=== PATIENT | female | born 1985 | race Hispanic/Latino ===

== ENCOUNTER 2019-05-06 13:09 | Observation (INO) | payer SELFPAY ==
[~2019-05-06] VITALS: Ht 157.5 cm; Wt 65.8 kg
[~2019-05-06 13:09] MED LIST: AMITRIPTYLINE100 MG PO; ELMIRON100 MG PO; ETHINYL ESTRADIOL PO; LEVONORGESTREL PO; LEXAPRO10 MG PO; NORCO 10-325 T1 EACH PO; SEASONIQUE 0.11 EACH; TYLENOL WITH C1 EACH PO; URELLE TABLET1 EACH PO; VALIUM10 MG PO
[2019-05-06] MEDS ORDERED: ONDANSETRON HCL INJ 2MG/ML 2ML 2 MG/ML VIAL IV STA (13:12)
[2019-05-06] MEDS ORDERED: SODIUM CHLORIDE 0.9% 1000ML 1,000 ML IV STA (13:12)
--- OUTSIDE RECORDS SUMMARY | 2019-05-06 13:12 | XMS REPORT ---
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 Allergies, Adverse Reactions, Alerts Allergy Name Allergy Type Status Severity Reaction(s) Onset Date Inactive Date Treating Clinician Comments methylprednisolone acetate DA Active NM 2018-06-10 00:00:00 Sulfa (Sulfonamide Antibiotics) DA Active 2018-06-10 00:00:00 cephalexin DA Active 2018-06-10 00:00:00 sulfamethoxazole DA Active NM 2018-06-10 00:00:00 trimethoprim DA Active NM 2018-06-10 00:00:00 methylprednisolone acetate DA Active NM 2016-04-14 00:00:00 Sulfa (Sulfonamide Antibiotics) DA Active 2016-04-14 00:00:00 cephalexin DA Active 2016-04-14 00:00:00 sulfamethoxazole DA Active NM 2016-04-14 00:00:00 trimethoprim DA Active NM 2016-04-14 00:00:00 Medications This patient has no known medications. Encounters Start Date/Time End Date/Time Encounter Type Admission Type Attending Clinicians Care Facility Care Department Encounter ID 2018-07-15 00:00:00 2018-07-15 00:00:00 Outpatient [facility] [id number] 2018-06-10 11:41:21 2018-06-10 11:41:21 Emergency [facility] MED [id number] Results Test Description Test Time Test Comments Text Results Atomic Results Result Comments - US TRANSVAGINAL NON OB 2018-07-08 19:31:00 Name: JOHNATHAN JEFFERY [facility] : 1985 Age/S: 32 / F [address] [facility] Unit #: [id number] Loc: [place] Mcm[place] [address] Phys: Jose Gan MD Acct: [id number] Dis Date: Status: REG ER PHONE #: [phone] Exam Date: 07/08/20181928 FAX #: [phone] Reason: pelvic pain EXAMS: CPT CODE: [id number] [place] [id number] REASON FOR EXAM: pelvic pain EXAM ORDER DATE: 07/08/2018 5:48 PM Attending M.Iron.: Jose Gan MD PROCEDURE: - US PELVIS COMPLETE, - US TRANSVAGINAL NON OB FINDINGS: The transabdominal ultrasound shows the uterus measured 6.3 x 2.7 cm. The ovaries were not seen on the transabdominal exam. No evidence of free fluid or adnexal mass on the transabdominal exam. The transvaginal ultrasound shows the endometrial stripe measured 0.4 cm. The ovaries are not seen. No fluid seen in the cul-de-sac. No evidence of IUP. IMPRESSION: Nonvisualization of the ovaries. No evidence of adnexal mass or free fluid at 193 Reported and signed by: Abelino Aponte M.D. CC: Jose Gan MD Technologist: Lis Dexter RDMS Trnscb Date/Time: 07/08/2018 (1930) [email or web address] Orig Print D/T: S: 07/08/2018 (1933) Probe: [id number] PAGE 1 Signed Report - US PELVIS COMPLETE 2018-07-08 19:31:00 Name: JOHNATHAN JEFFERY [facility] : 1985 Age/S: 32 / F [address] [facility] Unit #: [id number] Loc: [place] [address] Phys: Jose Gan MD Acct: [id number] Dis Date: Status: REG ER PHONE #: [phone] Exam Date: 07/08/20181928 FAX #: [phone] Reason: pelvic pain EXAMS: CPT CODE: [id number] US PELVIS COMPLETE [id number] REASON FOR EXAM: pelvic pain EXAM ORDER DATE: 07/08/2018 5:48 PM Attending Magan: Jose Gan MD PROCEDURE: - US PELVIS COMPLETE, - US TRANSVAGINAL NON OB FINDINGS: The transabdominal ultrasound shows the uterus measured 6.3 x 2.7 cm. The ovaries were not seen on the transabdominal exam. No evidence of free fluid or adnexal mass on the transabdominal exam. The transvaginal ultrasound shows the endometrial stripe measured 0.4 cm. The ovaries are not seen. No fluid seen in the cul-de-sac. No evidence of IUP. IMPRESSION: Nonvisualization of the ovaries. No evidence of adnexal mass or free fluid at 193 Reported and signed by: Abelino Aponte M.D. CC: Jose Gan MD Technologist: Lis Dxeter RDWV Trnscb Date/Time: 07/08/2018 (1930) [email or web address] Orig Print D/T: S: 07/08/2018 (1933) Probe: PAGE 1 Signed Report COMPREHENSIVE METABOLIC PANEL 2018-07-08 18:26:00 SODIUM (test code=NA) 136 mmol/L 135-148 POTASSIUM (test code=K) 4.1 mmol/L 3.5-5.1 CHLORIDE (test code=CL) 102 mmol/L 101-109 CARBON DIOXIDE (test code=CO2) 21.7 mmol/L 21-32 ANION GAP (test code=GAP) 16 mmol/L 10-20 GLUCOSE (test code=GLU) 85 mg/dL 74-106 BLOOD UREA NITROGEN (test code=BUN) 19 mg/dL 3-21 CREATININE (test code=CREAT) 0.73 mg/dL 0.55-1.3 BUN/CREATININE RATIO (test code=BUN/CREA) 26.0 10-20 TOTAL PROTEIN (test code=PROT) 8.2 g/dL 6.5-8.4 ALBUMIN (test code=ALB) 4.1 g/dL 3.4-4.8 GLOBULIN (test code=GLOB) 4.1 G/DL 1-10 ALBUMIN/GLOBULIN RATIO (test code=A/G) 1.0 RATIO 0.75-1.50 CALCIUM (test code=CA) 9.2 mg/dL 8.4-10.2 BILIRUBIN TOTAL (test code=BILT) 0.40 mg/dL 0.0-1.0 SGOT/AST (test code=AST) 13 U/L 6-32 SGPT/ALT (test code=ALT) 30 U/L 12-78 Note: Change in REFERENCE RANGE due to new reagent method. ALKALINE PHOSPHATASE TOTAL (test code=ALKP) 78 U/L 38-126 URINALYSIS [id number] 18:19:00* Test Item Value Reference Range Comments UA COLOR (test code=COLU) GREEN YELLOW UA APPEARANCE (test code=APPU) HAZY CLEAR UA GLUCOSE DIPSTICK (test code=DGLUU) norm mg/dL NEGATIVE UA BILIRUBIN DIPSTICK (test code=BILU) NEGATIVE mg/dL NEGATIVE UA KETONE DIPSTICK (test code=KETU) 5 (Trace) mg/dL NEGATIVE UA SPECIFIC GRAVITY (test code=SGU) 1.010 1.001-1.035 UA BLOOD DIPSTICK (test code=SHARRON) 150 (3+) Andre/uL NEGATIVE UA PH DIPSTICK (test code=DIANA) 7.0 5.0-8.0 UA PROTEIN DIPSTICK (test code=PROU) 100 (2+) mg/dL Neg-15 UA UROBILINIOGEN DIPSTICK (test code=URO) 1 mg/dL 0.0-0.2 UA NITRITE DIPSTICK (test code=INES) POSITIVE NEGATIVE UA LEUKOCYTE ESTERASE DIPSTICK (test code=LEUU) 25 Clara/uL (Trace) uL NEGATIVE UA WBC (test code=WBCU) 3-5 per HPF 0-5 UA RBC (test code=RBCU) 11-20 per HPF 0-5 UA EPITHELIAL CELLS (test code=EPIU) Rare (0-1/hpf) per HPF Few UA BACTERIA (test code=BACU) TRACE per HPF NONE UA MUCUS (test code=MUCU) MODERATE per LPF NONE-FEW Urine Source? Clean CatchUR HCG [id number] 18:19:00* Test Item Value Reference Range Comments UR HCG QUAL (test code=HCGQLU) NEGATIVE This HCGQL test is NOT applicable for MALE patients.Check with nurse about probable order error.If Tumor Marker Test needed, nurse should order test "HCGTU"(Test #550.39696) Urine Source? Clean CatchCOMPREHENSIVE METABOLIC [id number] 18:19:00* Test Item Value Reference Range Comments SODIUM (test code=NA) 136 mmol/L 135-148 POTASSIUM (test code=K) 4.1 mmol/L 3.5-5.1 CHLORIDE (test code=CL) 102 mmol/L 101-109 CARBON DIOXIDE (test code=CO2) 21.7 mmol/L 21-32 ANION GAP (test code=GAP) 16 mmol/L 10-20 GLUCOSE (test code=GLU) 85 mg/dL 74-106 BLOOD UREA NITROGEN (test code=BUN) 19 mg/dL 3-21 CREATININE (test code=CREAT) 0.73 mg/dL 0.55-1.3 BUN/CREATININE RATIO (test code=BUN/CREA) 26.0 10-20 TOTAL PROTEIN (test code=PROT) gram/dL 6.4-8.2 ALBUMIN (test code=ALB) g/dL 3.4-5.0 GLOBULIN (test code=GLOB) g/dL 2.7-4.2 ALBUMIN/GLOBULIN RATIO (test code=A/G) 0.75-1.50 CALCIUM (test code=CA) 9.2 mg/dL 8.4-10.2 BILIRUBIN TOTAL (test code=BILT) mg/dL 0.2-1.2 SGOT/AST (test code=AST) IUnit/L 15-37 SGPT/ALT (test code=ALT) U/L 10-69 ALKALINE PHOSPHATASE TOTAL (test code=ALKP) IUnit/L 45-117 URINALYSIS [id number] 18:09:00* Test Item Value Reference Range Comments UA COLOR (test code=COLU) GREEN YELLOW UA APPEARANCE (test code=APPU) HAZY CLEAR UA GLUCOSE DIPSTICK (test code=DGLUU) norm mg/dL NEGATIVE UA BILIRUBIN DIPSTICK (test code=BILU) NEGATIVE mg/dL NEGATIVE UA KETONE DIPSTICK (test code=KETU) 5 (Trace) mg/dL NEGATIVE UA SPECIFIC GRAVITY (test code=SGU) 1.010 1.001-1.035 UA BLOOD DIPSTICK (test code=SHARRON) 150 (3+) Andre/uL NEGATIVE UA PH DIPSTICK (test code=DIANA) 7.0 5.0-8.0 UA PROTEIN DIPSTICK (test code=PROU) 100 (2+) mg/dL Neg-15 UA UROBILINIOGEN DIPSTICK (test code=URO) 1 mg/dL 0.0-0.2 UA NITRITE DIPSTICK (test code=INES) POSITIVE NEGATIVE UA LEUKOCYTE ESTERASE DIPSTICK (test code=LEUU) 25 Clara/uL (Trace) uL NEGATIVE UA WBC (test code=WBCU) per HPF 0-5 UA RBC (test code=RBCU) per HPF 0-5 UA EPITHELIAL CELLS (test code=EPIU) per HPF Few UA BACTERIA (test code=BACU) per HPF NONE Urine Source? Clean CatchUR HCG [id number] 18:09:00* Test Item Value Reference Range Comments UR HCG QUAL (test code=HCGQLU) Urine Source? Clean CatchURINALYSIS [id number] 18:09:00* Test Item Value Reference Range Comments UA COLOR (test code=COLU) GREEN YELLOW UA APPEARANCE (test code=APPU) HAZY CLEAR UA GLUCOSE DIPSTICK (test code=DGLUU) norm mg/dL NEGATIVE UA BILIRUBIN DIPSTICK (test code=BILU) NEGATIVE mg/dL NEGATIVE UA KETONE DIPSTICK (test code=KETU) 5 (Trace) mg/dL NEGATIVE UA SPECIFIC GRAVITY (test code=SGU) 1.010 1.001-1.035 UA BLOOD DIPSTICK (test code=SHARRON) 150 (3+) Andre/uL NEGATIVE UA PH DIPSTICK (test code=DIANA) 7.0 5.0-8.0 UA PROTEIN DIPSTICK (test code=PROU) 100 (2+) mg/dL Neg-15 UA UROBILINIOGEN DIPSTICK (test code=URO) 1 mg/dL 0.0-0.2 UA NITRITE DIPSTICK (test code=INES) POSITIVE NEGATIVE UA LEUKOCYTE ESTERASE DIPSTICK (test code=LEUU) 25 Clara/uL (Trace) uL NEGATIVE UA WBC (test code=WBCU) per HPF 0-5 UA RBC (test code=RBCU) per HPF 0-5 UA EPITHELIAL CELLS (test code=EPIU) per HPF Few UA BACTERIA (test code=BACU) per HPF NONE Urine Source? Clean CatchUR HCG [id number] 18:09:00* Test Item Value Reference Range Comments UR HCG QUAL (test code=HCGQLU) NEGATIVE This HCGQL test is NOT applicable for MALE patients.Check with nurse about probable order error.If Tumor Marker Test needed, nurse should order test "HCGTU"(Test #550.72422) Urine Source? Clean CatchCBC W/AUTO [id number] 18:08:00* Test Item Value Reference Range Comments WHITE BLOOD CELL (test code=WBC) 8.6 K/mm3 4.5-12.5 RED BLOOD CELL (test code=RBC) 4.41 mill/mm3 3.7-5.2 HEMOGLOBIN (test code=HGB) 13.7 gram/dL 11.5-15.5 HEMATOCRIT (test code=HCT) 41.5 % 36.0-46.0 MEAN CELL VOLUME (test code=MCV) 94.1 fL 80-98 MEAN CELL HGB (test code=MCH) 31.1 picogram 27.0-33.0 MEAN CELL HGB CONCETRATION (test code=MCHC) 33.0 gram/dL 33.0-36.0 RED CELL DISTRIBUTION WIDTH (test code=RDW) 13.6 % 11.6-16.2 RED CELL DISTRIBUTION WIDTH SD (test code=RDW-SD) 45.1 fL 39.1-52.0 PLATELET COUNT (test code=PLT) 399 K/mm3 150-450 MEAN PLATELET VOLUME (test code=MPV) 9.4 fL 6.7-11.0 NEUTROPHIL % (test code=NT%) 69.4 % 39.0-69.0 LYMPHOCYTE % (test code=LY%) 25.3 % 25.0-55.0 MONOCYTE % (test code=MO%) 4.7 % 0.0-10.0 EOSINOPHIL % (test code=EO%) 0.3 % 0.0-5.0 BASOPHIL % (test code=BA%) 0.3 % 0.0-1.0 NEUTROPHIL # (test code=NT#) 5.98 K/mm3 1.8-7.7 LYMPHOCYTE # (test code=LY#) 2.19 K/mm3 1.0-5.0 MONOCYTE # (test code=MO#) 0.41 K/mm3 0-0.8 EOSINOPHIL # (test code=EO#) 0.03 K/mm3 0.0-0.5 BASOPHIL # (test code=BA#) 0.03 K/mm3 0.0-0.2 MANUAL DIFF REQUIRED (test code=MDIFF) NO BASIC METABOLIC [id number] 06:57:00* Test Item Value Reference Range Comments SODIUM (test code=NA) 139 mmol/L 136-145 POTASSIUM (test code=K) 3.8 mmol/L 3.5-5.1 CHLORIDE (test code=CL) 107.0 mmol/L 98-107 CARBON DIOXIDE (test code=CO2) mmol/L 21-32 ANION GAP (test code=GAP) 10-20 GLUCOSE (test code=GLU) mg/dL 74-106 BLOOD UREA NITROGEN (test code=BUN) mg/dL 7-18 GLOMERULAR FILTRATION RATE (test code=GFR) mL/min >=60 CREATININE (test code=CREAT) mg/dL 0.55-1.02 BUN/CREATININE RATIO (test code=BUN/CREA) 10-20 CALCIUM (test code=CA) mg/dL 8.5-10.1 HEPATIC FUNCTION [id number] 06:57:00* Test Item Value Reference Range Comments TOTAL PROTEIN (test code=PROT) gram/dL 6.4-8.2 ALBUMIN (test code=ALB) g/dL 3.4-5.0 GLOBULIN (test code=GLOB) gram/dL 2.7-4.2 ALBUMIN/GLOBULIN RATIO (test code=A/G) 0.75-1.50 BILIRUBIN TOTAL (test code=BILT) mg/dL 0.0-1.0 BILIRUBIN DIRECT (test code=BILD) mg/dL 0.0-0.20 SGOT/AST (test code=AST) IUnit/L 15-37 SGPT/ALT (test code=ALT) IUnit/L 12-78 ALKALINE PHOSPHATASE TOTAL (test code=ALKP) IUnit/L 45-117 [id number] 06:57:00* Test Item Value Reference Range Comments LIPASE (test code=LIP) U/L 73.0-393.0 HCG SERUM [id number] 06:57:00* Test Item Value Reference Range Comments HCG SERUM QUAL (test code=HCGQL) NEGATIVE NEGATIVE This HCGQL test is NOT applicable for MALE patients.Check with nurse about probable order error.If Tumor Marker Test needed, nurse should order test "HCGTU"(Test #550.77879) BASIC METABOLIC [id number] 06:57:00* Test Item Value Reference Range Comments SODIUM (test code=NA) 139 mmol/L 136-145 POTASSIUM (test code=K) 3.8 mmol/L 3.5-5.1 CHLORIDE (test code=CL) 107.0 mmol/L 98-107 CARBON DIOXIDE (test code=CO2) 21.0 mmol/L 21-32 ANION GAP (test code=GAP) 14.8 10-20 GLUCOSE (test code=GLU) 81 mg/dL 74-106 BLOOD UREA NITROGEN (test code=BUN) 11 mg/dL 7-18 GLOMERULAR FILTRATION RATE (test code=GFR) > 60 mL/min >=60 Estimated GFR by using Modified MDRD formula.Chronic kidney disease is defined as either kidney damageor GFR <60 mL/min/1.73 m2 for >3 months. CREATININE (test code=CREAT) 0.80 mg/dL 0.55-1.02 Note change in reference range due to change in reagent. BUN/CREATININE RATIO (test code=BUN/CREA) 13.8 10-20 CALCIUM (test code=CA) 9.1 mg/dL 8.5-10.1 HEPATIC FUNCTION [id number] 06:57:00* Test Item Value Reference Range Comments TOTAL PROTEIN (test code=PROT) 7.9 gram/dL 6.4-8.2 ALBUMIN (test code=ALB) 4.1 g/dL 3.4-5.0 GLOBULIN (test code=GLOB) 3.8 gram/dL 2.7-4.2 ALBUMIN/GLOBULIN RATIO (test code=A/G) 1.1 0.75-1.50 BILIRUBIN TOTAL (test code=BILT) 0.40 mg/dL 0.0-1.0 BILIRUBIN DIRECT (test code=BILD) 0.12 mg/dL 0.0-0.20 SGOT/AST (test code=AST) 22 IUnit/L 15-37 SGPT/ALT (test code=ALT) 28 IUnit/L 12-78 ALKALINE PHOSPHATASE TOTAL (test code=ALKP) 75 IUnit/L 45-117 Note change in reference range due to change in reagent. [id number] 06:57:00* Test Item Value Reference Range Comments LIPASE (test code=LIP) 188 U/L 73.0-393.0 HCG SERUM [id number] 06:57:00* Test Item Value Reference Range Comments HCG SERUM QUAL (test code=HCGQL) NEGATIVE NEGATIVE This HCGQL test is NOT applicable for MALE patients.Check with nurse about probable order error.If Tumor Marker Test needed, nurse should order test "HCGTU"(Test #550.90625) CBC W/O [id number] 06:56:00* Test Item Value Reference Range Comments WHITE BLOOD CELL (test code=WBC) 8.5 K/mm3 4.5-12.5 RED BLOOD CELL (test code=RBC) 4.37 mill/mm3 3.7-5.2 HEMOGLOBIN (test code=HGB) 13.3 gram/dL 11.5-15.5 HEMATOCRIT (test code=HCT) 39.0 % 36.0-46.0 MEAN CELL VOLUME (test code=MCV) 89.2 fL 80-98 MEAN CELL HGB (test code=MCH) 30.4 picogram 27.0-33.0 MEAN CELL HGB CONCETRATION (test code=MCHC) 34.1 gram/dL 33.0-36.0 RED CELL DISTRIBUTION WIDTH (test code=RDW) 11.5 % 11.6-16.2 PLATELET COUNT (test code=PLT) 362 K/mm3 150-450 MEAN PLATELET VOLUME (test code=MPV) 10.3 fL 6.7-11.0 CBC W/O [id number] 06:47:00* Test Item Value Reference Range Comments WHITE BLOOD CELL (test code=WBC) K/mm3 4.5-12.5 RED BLOOD CELL (test code=RBC) mill/mm3 3.7-5.2 HEMOGLOBIN (test code=HGB) 13.3 gram/dL 11.5-15.5 HEMATOCRIT (test code=HCT) 39.0 % 36.0-46.0 MEAN CELL VOLUME (test code=MCV) fL 80-98 MEAN CELL HGB (test code=MCH) picogram 27.0-33.0 MEAN CELL HGB CONCETRATION (test code=MCHC) gram/dL 33.0-36.0 RED CELL DISTRIBUTION WIDTH (test code=RDW) % 11.6-16.2 PLATELET COUNT (test code=PLT) K/mm3 150-450 MEAN PLATELET VOLUME (test code=MPV) fL 6.7-11.0 BASIC METABOLIC [id number] 06:44:00* Test Item Value Reference Range Comments SODIUM (test code=NA) 139 mmol/L 136-145 POTASSIUM (test code=K) 3.8 mmol/L 3.5-5.1 CHLORIDE (test code=CL) 107.0 mmol/L 98-107 CARBON DIOXIDE (test code=CO2) mmol/L 21-32 ANION GAP (test code=GAP) 10-20 GLUCOSE (test code=GLU) mg/dL 74-106 BLOOD UREA NITROGEN (test code=BUN) mg/dL 7-18 GLOMERULAR FILTRATION RATE (test code=GFR) mL/min >=60 CREATININE (test code=CREAT) mg/dL 0.55-1.02 BUN/CREATININE RATIO (test code=BUN/CREA) 10-20 CALCIUM (test code=CA) mg/dL 8.5-10.1 HEPATIC FUNCTION [id number] 06:44:00* Test Item Value Reference Range Comments TOTAL PROTEIN (test code=PROT) gram/dL 6.4-8.2 ALBUMIN (test code=ALB) g/dL 3.4-5.0 GLOBULIN (test code=GLOB) gram/dL 2.7-4.2 ALBUMIN/GLOBULIN RATIO (test code=A/G) 0.75-1.50 BILIRUBIN TOTAL (test code=BILT) mg/dL 0.0-1.0 BILIRUBIN DIRECT (test code=BILD) mg/dL 0.0-0.20 SGOT/AST (test code=AST) IUnit/L 15-37 SGPT/ALT (test code=ALT) IUnit/L 12-78 ALKALINE PHOSPHATASE TOTAL (test code=ALKP) IUnit/L 45-117 [id number] 06:44:00* Test Item Value Reference Range Comments LIPASE (test code=LIP) U/L 73.0-393.0 HCG SERUM [id number] 06:44:00* Test Item Value Reference Range Comments HCG SERUM QUAL (test code=HCGQL) NEGATIVE U/S, RENAL, [id number] 10:41:00Reason for exam:->URINARY RETENTIONx 5 daysReason for exam:->todayReason for exam:->EMESIS5 days agoFINAL REPORT Renal ultrasound. Clinical History: URINARY RETENTIONEMESIS. Comparison Study: None. Findings: The right kidney measures 9.3 x 4.3 x 4.5 cm and left kidney measures 10.5 x 5.2 x 4.5 cm. There is no eviden ce of hydronephrosis, nephrolithiasis or renal mass on either side. The echogeni city is normal bilaterally. The cortical thickness on the right side is 0.8 cm a nd on the left side is 0.9 cm. Color flow is documented to both kidneys. The louis dder contains a Acosta catheter. Impression: Morphologically normal appearing kid neys bilaterally with no evidence of hydronephrosis. Signed: Mayo Sanchez eport Verified Date/Time: 06/05/2018 10:41:20 Reading Location: [facility] [id number] Or [facility] Consult Reading Room ALYSIS W/ REFLEX URINE [id number] 10:38:00* Test Item Value Reference Range Comments COLOR (BEAKER) (test htch=857) Colorless CLARITY (BEAKER) (test saju=557) Hazy SPECIFIC GRAVITY UA (BEAKER) (test uzsc=739) 1.002 1.001-1.035 PH UA (BEAKER) (test xsmz=761) 6.0 5.0-8.0 PROTEIN UA (BEAKER) (test jxae=198) Negative Negative GLUCOSE UA (BEAKER) (test jfcs=400) Negative Negative KETONES UA (BEAKER) (test rczh=167) 40 mg/dL Negative BILIRUBIN UA (BEAKER) (test dxay=185) Negative Negative BLOOD UA (BEAKER) (test ayhq=119) Moderate Negative NITRITE UA (BEAKER) (test efkn=019) Negative Negative LEUKOCYTE ESTERASE UA (BEAKER) (test kktz=750) Negative Negative UROBILINOGEN UA (BEAKER) (test jozv=628) 0.2 mg/dL 0.2-1.0 RBC UA (BEAKER) (test wgwt=390) 2 /HPF WBC UA (BEAKER) (test sxdl=423) 1 /HPF BACTERIA (BEAKER) (test mvrq=851) Rare SQUAMOUS EPITHELIAL (BEAKER) (test scmm=012) 1 /HPF SOURCE(BEAKER) (test yhoi=0028) HEPATIC FUNCTION [id number] 10:38:00* Test Item Value Reference Range Comments TOTAL PROTEIN (BEAKER) (test wgmw=036) 6.9 gm/dL 6.0-8.3 ALBUMIN (BEAKER) (test vwpe=9158) 4.0 g/dL 3.5-5.0 BILIRUBIN TOTAL (BEAKER) (test uxko=671) 0.5 mg/dL 0.2-1.2 BILIRUBIN DIRECT (BEAKER) (test ztvx=694) 0.3 mg/dL 0.1-0.5 ALKALINE PHOSPHATASE (BEAKER) (test ijgm=722) 63 U/L 40-150 AST (SGOT) (BEAKER) (test wiee=862) 37 U/L 5-34 ALT (SGPT) (BEAKER) (test zsot=885) 31 U/L 6-55 BASIC METABOLIC [id number] 10:38:00* Test Item Value Reference Range Comments SODIUM (BEAKER) (test nsxt=291) 135 meq/L 136-145 POTASSIUM (BEAKER) (test keke=327) 3.6 meq/L 3.5-5.1 CHLORIDE (BEAKER) (test bgvd=874) 105 meq/L 98-107 CO2 (BEAKER) (test rwfu=933) 16 meq/L 22-29 BLOOD UREA NITROGEN (BEAKER) (test mqaz=648) 6 mg/dL 7-21 CREATININE (BEAKER) (test qqwo=415) 0.68 mg/dL 0.57-1.25 GLUCOSE RANDOM (BEAKER) (test qtcu=878) 79 mg/dL 70-105 CALCIUM (BEAKER) (test praw=352) 9.3 mg/dL 8.4-10.2 EGFR (BEAKER) (test vogc=1109) 100 mL/min/1.73 sq m ESTIMATED GFR IS NOT ACCURATE CREATININE CLEARANCE IN PREDICTING GLOMERULAR FILTRATION RATE. ESTIMATED GFR IS NOT APPLICABLE FOR DIALYSIS PATIENTS. CBC W/PLT COUNT & AUTO [id number] 08:46:00* Test Item Value Reference Range Comments WHITE BLOOD CELL COUNT (BEAKER) (test zghb=469) 9.7 K/ L 3.5-10.5 RED BLOOD CELL COUNT (BEAKER) (test uoob=490) 4.19 M/ L 3.93-5.22 HEMOGLOBIN (BEAKER) (test sgpb=204) 12.6 GM/DL 11.2-15.7 HEMATOCRIT (BEAKER) (test mkur=174) 38.1 % 34.1-44.9 MEAN CORPUSCULAR VOLUME (BEAKER) (test gdum=248) 90.9 fL 79.4-94.8 MEAN CORPUSCULAR HEMOGLOBIN (BEAKER) (test neiz=092) 30.1 pg 25.6-32.2 MEAN CORPUSCULAR HEMOGLOBIN CONC (BEAKER) (test kann=274) 33.1 GM/DL 32.2-35.5 RED CELL DISTRIBUTION WIDTH (BEAKER) (test navu=460) 11.6 % 11.7-14.4 PLATELET COUNT (BEAKER) (test ejmj=826) 352 K/CU MM 150-450 MEAN PLATELET VOLUME (BEAKER) (test smst=764) 9.8 fL 9.4-12.3 NUCLEATED RED BLOOD CELLS (BEAKER) (test njom=672) 0 /100 WBC 0-0 NEUTROPHILS RELATIVE PERCENT (BEAKER) (test urli=880) 67 % LYMPHOCYTES RELATIVE PERCENT (BEAKER) (test pvmd=304) 27 % MONOCYTES RELATIVE PERCENT (BEAKER) (test tezc=327) 5 % EOSINOPHILS RELATIVE PERCENT (BEAKER) (test hgmm=526) 0 % BASOPHILS RELATIVE PERCENT (BEAKER) (test kxrs=121) 0 % NEUTROPHILS ABSOLUTE COUNT (BEAKER) (test ubiw=968) 6.50 K/ L 1.56-6.13 LYMPHOCYTES ABSOLUTE COUNT (BEAKER) (test idgl=304) 2.57 K/ L 1.18-3.74 MONOCYTES ABSOLUTE COUNT (BEAKER) (test cshw=157) 0.51 K/ L 0.24-0.36 EOSINOPHILS ABSOLUTE COUNT (BEAKER) (test cvfd=777) 0.04 K/ L 0.04-0.36 BASOPHILS ABSOLUTE COUNT (BEAKER) (test ioal=485) 0.04 K/ L 0.01-0.08 IMMATURE GRANULOCYTES-RELATIVE PERCENT (BEAKER) (test tzkc=4274) 0 % 0-1
[2019-05-06] MEDS ORDERED: FLUOXETINE HCL20 MG (13:23)
[2019-05-06] MEDS ORDERED: URIBEL CAPSULE1 EACH (13:23)
[2019-05-06] MEDS ORDERED: ULTRAM 50MG50 MG (13:23)
[2019-05-06] MEDS ORDERED: LYRICA100 MG PO (13:29)
[2019-05-06] MEDS ORDERED: HYDROCODON-ACE1 EAC9 (13:29)
--- NOTE | 2019-05-06 13:29 | NUR ---
medications left in clients possesion.
--- NOTE | 2019-05-06 13:54 | NUR ---
radiology collected and sent urine to lab.
--- NOTE | 2019-05-06 14:04 | Diagnostic Imaging Report ---
Chest, portable AP view History: Seizures Comparison: No comparisons available for review IMPRESSION: The cardiomediastinal silhouette and pulmonary vasculature are within normal limits. The lungs are clear without evidence of consolidation or effusion. There are no acute osseous abnormalities. Signed by: Miguel Mcgee MD on 05/06/2019 2:01 PM
[2019-05-06 14:08] LABS: CLARITY,URINE CLEAR (CLEAR); COLOR,URINE GREEN (YELLOW)
[2019-05-06 14:09] LABS: AMPHETAMINES SCREEN,URINE NEGATIVE (NEGATIVE); BENZODIAZEPINES SCREEN,URINE NEGATIVE (NEGATIVE); KETONES,URINE NEGATIVE (NEGATIVE); LEUKOCYTE ESTERASE ,URINE NEGATIVE (NEGATIVE); NITRITE,URINE NEGATIVE (NEGATIVE); PHENCYCLIDINE SCREEN,URINE NEGATIVE (NEGATIVE); PROTEIN,URINE DIPSTICK 1+ (NEGATIVE)
[2019-05-06 14:10] LABS: BILIRUBIN,URINE MODERATE (NEGATIVE); URINE UROBILINOGEN 0.2 mg/dL (0.2 - 1)
[2019-05-06 14:11] LABS: EPITHELIAL CELLS,URINE MODERATE /LPF
--- NOTE | 2019-05-06 14:11 | Diagnostic Imaging Report ---
History: Seizure Comparison studies: None Technique: Axial images were obtained from the skull base to the vertex. Coronal and sagittal reconstructions obtained from the axial data. Dose modulation, iterative reconstruction, and/or weight based adjustment of the mA/kV was utilized to reduce the radiation dose to as low as reasonably achievable. Findings: Scalp/skull: No abnormalities. No fractures, blastic or lytic lesions. Extra-axial spaces: No masses. No fluid collections. Brain sulci: Appropriate for age. Ventricles: Normal in size and configuration. No hydrocephalus. Parenchyma: No abnormal densities. No masses, hemorrhage, acute or chronic cortical vascular insults. Sellar/suprasellar region: No abnormalities Craniocervical junction: Patent foramen magnum. No Chiari one malformation. IMPRESSION: No abnormalities . Signed by: DR Arnulfo Barahona M.D. on 05/06/2019 2:07 PM
[2019-05-06 14:20] LABS: BASOPHILS % 0.4 % (0.0-1.0); EOSINOPHILS % 0.4 % (0.0-6.0); HEMATOCRIT 41.8 % (34.2-44.1); HEMOGLOBIN 13.7 g/dL (12.0-16.0); LYMPHOCYTES % 21.5 % (18.0-39.1); MEAN CORPUSCULAR HEMOGLOBIN 30.4 pg (28-32); MEAN CORPUSCULAR HGB CONC 32.8 g/dL (31-35); MEAN CORPUSCULAR VOLUME 92.9 fL (81-99); MONOCYTES # (AUTO) 0.4 (0.2-0.8); MONOCYTES % 4.6 % (4.4-11.3); NEUTROPHILS # (AUTO) 6.7 (2.1-6.9); NEUTROPHILS % 72.9 % (38.7-80.0); PLATELET COUNT 335 x10e3/uL (140-360)
[2019-05-06 15:08] LABS: PREGNANCY TEST, URINE NEGATIVE (NEGATIVE)
[2019-05-06 15:22] LABS: ALANINE AMINOTRANSFERASE 12 IU/L (0-55); ALBUMIN 3.9 g/dL (3.5-5.0); ALBUMIN/GLOBULIN RATIO 1.2 (0.8-2.0); ALKALINE PHOSPHATASE 57 IU/L (40-150); ANION GAP 13.8 mmol/L (8-16); BLOOD UREA NITROGEN 14 mg/dL (7-26); BUN/CREATININE RATIO 18 (6-25); CALCIUM 8.6 mg/dL (8.4-10.2); CARBON DIOXIDE 22 mmol/L (22-29); CHLORIDE 107 mmol/L (98-107); CREATINE KINASE 59 IU/L (29-168); CREATININE, SERUM 0.78 mg/dL (0.57-1.11); EST GLOMERULAR FILTRATION RATE > 60 ML/MIN (60-); GLUCOSE 92 mg/dL (74-118); POTASSIUM 3.8 mmol/L (3.5-5.1); SODIUM 139 mmol/L (136-145)
[2019-05-06 15:23] LABS: SALICYLATE < 5.0 mg/dL (0-30)
[2019-05-06] MEDS ORDERED: FAMOTIDINE 20 MG/2 ML VIAL IV SCH (16:00)
[2019-05-06] MEDS ORDERED: MORPHINE SULFATE 2 MG/ML SYR 1ML IV PRN (16:00)
[2019-05-06] MEDS ORDERED: PROMETHAZINE HCL (IM) 25 MG/ML VIAL IV PRN (16:00)
[2019-05-06] MEDS: PROMETHAZINE 12.5MG/ NACL 0.9% 50 ML IV PRN (16:56)
[2019-05-06] MEDS: SODIUM CHLORIDE 0.9% 1000ML 1,000 ML IV SCH (16:56)
[2019-05-06] MEDS ORDERED: ACETAMINOPHEN 325 MG TAB PO PRN (18:00)
[2019-05-06] MEDS ORDERED: HYDRALAZINE HCL 20 MG/ML VIAL IV PRN (18:00)
--- NOTE | 2019-05-06 18:50 | NUR ---
PATIENT RECEIVED FROM ER PER STRETCHER. ALERT AND VERBALLY RESPONSIVE. ASSISTED TO BED. TELEMETRY [address] IV FLUID INFUSING ORDERED. BED IN LOWER POSITION, CALL LIGHT AT REACH.
[2019-05-06 19:00] VITALS: BP 141/88
--- NOTE | 2019-05-06 19:04 | NUR ---
RECEIVED REPORT FROM DAY NURSE. PATIENT IS RESTING COMFORTABLY IN BED. BED IS IN LOWEST POSITION AND CALL LIGHT IS WITHIN REACH. WILL CONTINUE TO MONITOR PATIENT.
[2019-05-06 19:05] VITALS: BP 141/88
[2019-05-06] MEDS: MORPHINE SULFATE 2 MG/ML SYR 1ML IV PRN (21:42)
[2019-05-06] MEDS: ONDANSETRON HCL INJ 2MG/ML 2ML 2 MG/ML VIAL IV PRN (21:42)
[2019-05-07] VITALS: BP 126/71
[2019-05-07] MEDS: ONDANSETRON HCL INJ 2MG/ML 2ML 2 MG/ML VIAL IV PRN ×4 (00:55→20:07)
[2019-05-07] MEDS: MORPHINE SULFATE 2 MG/ML SYR 1ML IV PRN ×7 (00:55→23:25)
[2019-05-07 02:43] LABS: BASOPHILS % 0.4 % (0.0-1.0); EOSINOPHILS # (AUTO) 0.1 (0.0-0.4); EOSINOPHILS % 0.5 % (0.0-6.0); HEMATOCRIT 36.2 % (34.2-44.1); LYMPHOCYTES # (AUTO) 2.8 (1.0-3.2); LYMPHOCYTES % 29.1 % (18.0-39.1); MEAN CORPUSCULAR HEMOGLOBIN 30.6 pg (28-32); MEAN CORPUSCULAR HGB CONC 33.1 g/dL (31-35); MEAN CORPUSCULAR VOLUME 92.3 fL (81-99); MONOCYTES # (AUTO) 0.5 (0.2-0.8); MONOCYTES % 4.8 % (4.4-11.3); NEUTROPHILS # (AUTO) 6.3 (2.1-6.9); NEUTROPHILS % 64.9 % (38.7-80.0); PLATELET COUNT 335 x10e3/uL (140-360); RED BLOOD COUNT 3.92 x10e6/uL (3.6-5.1); RED CELL DISTRIBUTION WIDTH 12.9 % (11.7-14.4)
[2019-05-07 03:34] LABS: ALANINE AMINOTRANSFERASE 12 IU/L (0-55); ALBUMIN 3.4 g/dL (3.5-5.0); ALBUMIN/GLOBULIN RATIO 1.3 (0.8-2.0); ALKALINE PHOSPHATASE 49 IU/L (40-150); ANION GAP 10.9 mmol/L (8-16); BLOOD UREA NITROGEN 9 mg/dL (7-26); BUN/CREATININE RATIO 13 (6-25); CALCIUM 8.3 mg/dL (8.4-10.2); CARBON DIOXIDE 23 mmol/L (22-29); CHLORIDE 109 mmol/L (98-107); CHOL/HDL RATIO 3.6 (3.0-3.6); CHOLESTEROL 210 MD/DL (0-199); EST GLOMERULAR FILTRATION RATE > 60 ML/MIN (60-); GLUCOSE 90 mg/dL (74-118); HDL CHOLESTEROL 59 MG/DL (40-60); LDL CHOLESTEROL 132 MG/DL (60-130); POTASSIUM 3.9 mmol/L (3.5-5.1); SODIUM 139 mmol/L (136-145); TRIGLYCERIDES 96 MG/DL (0-149)
[2019-05-07 03:54] LABS: THYROID STIMULATING HORMONE 2.813 uIU/mL (0.350-4.940)
[2019-05-07 04:18] VITALS: BP 118/66
[2019-05-07] MEDS: SODIUM CHLORIDE 0.9% 1000ML 1,000 ML IV SCH (05:40)
[2019-05-07] MEDS ORDERED: AMITRIPTYLINE H25 MG PO (05:54)
--- NOTE | 2019-05-07 07:00 | NUR ---
The pt. was received in bed awake at bedside rounding. She reports pain at 7/10 and is aware that pain med is not due at this time.
--- NOTE | 2019-05-07 07:27 | NUR ---
report given to day nurse. patient is resting comfortably in bed. bed is in lowest position and call light is within reach.
[2019-05-07 07:34] VITALS: BP 118/73
[2019-05-07 08:00] LABS: CREATINE KINASE 90 IU/L (29-168)
[2019-05-07] MEDS: FLUOXETINE HCL 20 MG CAP PO SCH (08:35)
[2019-05-07] MEDS: ASPIRIN 325 MG TAB PO SCH (08:35)
[2019-05-07] MEDS: PREGABALIN 75 MG CAP PO SCH (08:35)
[2019-05-07] MEDS: FAMOTIDINE 20 MG TAB PO SCH ×2 (08:35→16:23)
[2019-05-07 08:50] VITALS: BP 118/73
[2019-05-07] MEDS ORDERED: PREGABALIN 300 MG PO SCH (09:00)
--- NOTE | 2019-05-07 11:07 | NUR ---
Pt currently has no health insurance, she was let go from her current job, provided self pay packet with [facility]
[2019-05-07] MEDS: PROMETHAZINE 12.5MG/ NACL 0.9% 50 ML IV PRN ×3 (12:38→23:25)
[2019-05-07 12:49] LABS: CREATINE KINASE 104 IU/L (29-168)
--- NOTE | 2019-05-07 13:39 | Diagnostic Imaging Report ---
History: Syncope, seizure Comparison studies: Head CT 05/06/2019 Technique: Sagittal and axial T2, axial T2 FLAIR, axial T1 FLAIR, axial T2*GRE, axial DWI through the whole brain and dedicated thin position coronal T2 and T2 FLAIR sequences through the hippocampi and temporal lobes. Intravenous contrast: None Findings: The coronal T2 and T2 FLAIR sequences are somewhat limited by artifacts related to patient motion. Scalp: Normal in signal. No masses. Bone marrow: Normal in signal intensity. Brain sulci: Appropriate for age. Ventricles: Normal in size. No hydrocephalus. Extra axial spaces: No mass, no fluid collection. Parenchyma: No masses, hemorrhage or acute ischemia. The hippocampi are grossly normal in size and signal intensity. The forniceal columns and mamillary bodies are are symmetric in size and signal intensity. No gross abnormalities of cortical development/cortical migration identified. Moreover, evaluation for these abnormalities are somewhat limited in the absence of a high resolution 3-D T1 sequence. Single punctate T2 FLAIR hyperintense focus in the left superior frontal white matter is nonspecific and may reflect small gliosis along a prominent perivascular space and is of doubtful clinical significance. Suprasellar region: No abnormalities. Craniocervical junction: Patent foramen magnum. No Chiari malformation. Vessels: Normal flow-voids in the arteries and sinuses. IMPRESSION: 1. No acute intracranial abnormalities. 2. No mass or hemorrhage. No gross medial temporal sclerosis or or gross abnormalities of cortical development/cortical migration. Signed by: Dr. Fabien Thorne M.D. on 05/07/2019 1:37 PM
[2019-05-07 15:27] VITALS: BP 117/65
--- NOTE | 2019-05-07 18:37 | Consultation ---
DATE OF CONSULTATION: 05/07/2019 Neurology Consultation. REASON FOR CONSULTATION: Seeing her for seizure, for time event. HISTORY OF PRESENT ILLNESS: Mrs. Gauthier is a 33-year-old female with history of megacolon and inflammatory cystitis that she had from many decades. She takes amitriptyline, tramadol, pain medications, famotidine, ondansetron, aspirin, pregabalin, acetaminophen, atorvastatin at home on a daily basis. No history of seizures, febrile seizures, or family history of seizures. Yesterday, she was talking to her family around noon and then developed left-sided tonic-clonic movements and had epileptic event and was transferred to us for further care and evaluation. REVIEW OF SYSTEMS: She has many GI problems and bladder problems. Has myoclonia in her arms and legs very frequently and intermittent headaches. Otherwise, 10-point review of systems negative. SOCIAL HISTORY: No alcohol, tobacco, or drugs. PHYSICAL EXAMINATION: VITAL SIGNS: Temperature 98.3, blood pressure 126/71, heart rate is 76 and regular. HEENT: Extraocular muscles intact. Pupils are reactive. Face symmetric. Tongue is midline. Speech clear. No nuchal rigidity. CARDIOVASCULAR: Regular rate and rhythm. PULMONARY: Clear to auscultation. ABDOMEN: Tender. EXTREMITIES: Strength is 5/5 in uppers and lowers. Reflexes 2/4. There are no tremors or ataxia noted on exam. No myotonia. ASSESSMENT AND PLAN: The patient comes in for first-time seizure. She wants to be on seizure medications as she is concerned of another possible event as this was very concerning to her. My recommendation will be to be put on levetiracetam IV while she is in the hospital due to concerns about absorption, get an outpatient EEG, and then at time of discharge put her on levetiracetam 500 mg p.o. b.i.d. liquid version so that she is able absorb more easily. We will check a levetiracetam level as an outpatient and go from there. The patient should follow up with me in about three weeks. RACHAEL MCMAHON MD RR/MAME /[id number]
[2019-05-07] MEDS: LEVETIRACETAM IN NACL (ISO-OS) 100 ML IV SCH (19:00)
--- NOTE | 2019-05-07 19:18 | Consultation ---
DATE OF CONSULTATION: 05/07/2019 Urology consultation Consultation is called by Dr. Calderon. CHIEF COMPLAINT/REASON FOR CONSULTATION: Interstitial cystitis. HISTORY OF PRESENT ILLNESS: Ms. Gauthier is a very pleasant 33-year-old female, admitted to the hospital with a new onset seizure. Urologic consultation was requested for her prior history of interstitial cystitis and urgency. The patient has been noncompliant with urologic followup. She originally was diagnosed in [place], had seen Dr. Pollo Wild before and underwent cystoscopy and hydrodistention. She feels that symptoms are controlled if she takes one Elmiron daily. However, due to her prior lack of insurance, she has not followed up and has been on Elmiron for quite some time. Currently, she is experiencing urgency, nocturia, denied aniyah incontinence. PAST MEDICAL HISTORY: As above. MEDICATIONS: Please see MAR. ALLERGIES: TO BACTRIM, CEPHALEXIN, AND DEPO-MEDROL. SOCIAL HISTORY: Denied smoking or drinking. FAMILY HISTORY: Denied urologic stones or malignancies. REVIEW OF SYSTEMS: Noncontributory, other than problems mentioned above for 12-organ systems. PHYSICAL EXAMINATION: GENERAL: A young female, in no acute distress, currently she is afebrile. VITAL SIGNS: Stable vital signs. HEENT: Sclerae anicteric. NECK: Supple. BACK: Without costovertebral angle tenderness bilaterally. ABDOMEN: Soft. It is nontender. Nondistended. No palpable mass. No palpable hernias. No palpable adenopathy. : Normal female genitalia. EXTREMITIES: No edema. NEURO: Moves all extremities. PSYCH: Alert and mood appropriate. SKIN: Intact. Normal color. PERTINENT LABORATORY DATA: Urinalysis which was normal. Chem 7, BMP normal. IMPRESSION: 1. Interstitial cystitis without hematuria. 2. Hypocalcemia. 3. Nocturia. PLAN: Refer hypocalcemia to the primary service. The patient has nocturia and interstitial cystitis, we will start her back on Elmiron 100 mg b.i.d. We would recommend she have a chronic follow up as we follow interstitial cystitis patients. Thank you for allowing me to participate in the care of your patient. We will be happy to follow along with you. MD STEFANO Griffin/MAME Perdue: 05/07/2019 16:38:35 /[id number] cc: Javier Claderon MD
--- NOTE | 2019-05-07 19:20 | NUR ---
received report from day nurse. bedside rounds complete. patient is resting comfortably in bed. bed is in lowest position and call light is within reach. will continue to monitor patient.
[2019-05-07 20:00] VITALS: BP 127/67
[2019-05-07] MEDS ORDERED: ATORVASTATIN 20 MG TAB PO SCH (21:00)
[2019-05-08] VITALS: BP 111/56
[2019-05-08 04:00] VITALS: BP 109/79
[2019-05-08] MEDS: LEVETIRACETAM IN NACL (ISO-OS) 100 ML IV SCH ×2 (05:47→16:35)
--- NOTE | 2019-05-08 07:00 | NUR ---
bedside rounding complete. patient is resting comfortably in the bed. bed is in the lowest position and call light is within reach.
[2019-05-08 07:34] LABS: BLOOD UREA NITROGEN 10 mg/dL (7-26); BUN/CREATININE RATIO 14 (6-25); CALCIUM 8.6 mg/dL (8.4-10.2); CARBON DIOXIDE 23 mmol/L (22-29); CHLORIDE 111 mmol/L (98-107); CREATININE, SERUM 0.74 mg/dL (0.57-1.11); EST GLOMERULAR FILTRATION RATE > 60 ML/MIN (60-); GLUCOSE 93 mg/dL (74-118); MAGNESIUM 2.1 MG/DL (1.3-2.1); SODIUM 140 mmol/L (136-145)
[2019-05-08 07:43] VITALS: BP 104/62
[2019-05-08 07:50] VITALS: BP 104/62
[2019-05-08] MEDS: FAMOTIDINE 20 MG TAB PO SCH ×2 (08:17→16:42)
[2019-05-08] MEDS: FLUOXETINE HCL 20 MG CAP PO SCH (08:17)
[2019-05-08] MEDS: PREGABALIN 75 MG CAP PO SCH (08:17)
[2019-05-08] MEDS: ONDANSETRON HCL INJ 2MG/ML 2ML 2 MG/ML VIAL IV PRN ×3 (08:17→17:45)
[2019-05-08] MEDS: MORPHINE SULFATE 2 MG/ML SYR 1ML IV PRN ×3 (08:17→17:45)
[2019-05-08] MEDS: ASPIRIN 325 MG TAB PO SCH (08:17)
[2019-05-08 11:23] VITALS: BP 104/58
[2019-05-08] MEDS ORDERED: HYDROCODONE/APAP 10MG-325MG TAB PO PRN (14:45)
[2019-05-08 15:30] VITALS: BP 102/59
[2019-05-08] MEDS ORDERED: ASPIRIN325 MG PO (16:33)
[2019-05-08] MEDS ORDERED: KEPPRA500 MG/5 M PO (16:33)
[2019-05-08] MEDS ORDERED: ZOFRAN4 MG PO (16:35)
--- NOTE | 2019-05-08 18:24 | NUR ---
Left FA IV discontinued. No signs of infiltration noted. Placed 2x2 gauze and coban. Taken via wheelchair to personal car by PCT. Accompanied by mother. AAOX3 to time, person, place. Respirations even and unlabored. NO s/s of acute distress noted. Discharge instructions, rx, and all personal belongings taken with patient.
[2019-05-08] MEDS ORDERED: AMITRIPTYLINE HCL 25 MG TAB PO SCH (21:00)
--- NOTE | 2019-05-09 02:33 | Discharge Summary ---
PERTINENT HISTORY AND PHYSICAL FINDINGS: Ms. Gauthier is a 33-year-old female who admitted after a new onset seizure, which lasted about 5 minutes after eating breakfast on the morning of 05/06/2019. Per family she was shaking first and stiffened, did not have incontinence. No injuries. Her father caught her before hitting the ground. She had postictal confusion. PAST MEDICAL HISTORY: Anxiety, bladder spasms, endometriosis, left ovarian cyst/tumors, interstitial cystitis. PAST SURGICAL HISTORY: Ovarian cyst removal, laparotomy. FAMILY HISTORY: Diabetes mellitus in the grandmother and grandfather. Cancer in both grandfathers. CVA in a grandfather. SOCIAL HISTORY: Noncontributory. ALLERGIES: BACTRIM, CEPHALEXIN, DEPO-MEDROL. ADMITTING DIAGNOSES: 1. New onset seizure. 2. Anxiety. 3. Hyperlipidemia. 4. Interstitial cystitis. DISCHARGE DIAGNOSES: 1. New onset seizure. 2. Anxiety. 3. Hyperlipidemia. 4. Interstitial cystitis. CONSULTATIONS: Included: 1. Rosa Maria Hinojosa MD, Neurology. 2. Robb Chery MD, Urology. Patient also has history of megacolon per Dr. Hinojosa's note. She developed left-sided tonic-clonic movements and had epileptic event and transferred for further evaluation. The patient is concerned of having another possible event and wants to be on seizure medication. She will be on Keppra 500 mg p.o. b.i.d. at home. She will receive another IV dose of levetiracetam prior to discharge. The plan is to get an outpatient EEG, electroencephalogram, and the Keppra will be liquid for easier absorption. The patient will follow up with both Neurology and Urology in about a month after she starts her new job. She still experiencing some urgency, nocturia. She has been seeing her PCP, who is also a urologist for several decades, so she will follow up with him and Dr. Mendez Schofield within a month. Her left arm pain has improved. Her abdominal pain that she was having after seizure is also improved. Her cardiac biomarkers were negative x3 sets. Essentially, her other labs were normal except that her cholesterol was 210. Her LDL was 132. Urine culture and sensitivity were without growth after 36-48 hours. Bilateral carotid Doppler ultrasound was negative for stenosis. Echocardiogram showed ejection fraction of 65%. The EKG that she had on 05/06 showed a heart rate of 119 beats per minute, and she does suffer from anxiety for which she takes Prozac and amitriptyline. Amitriptyline is actually mainly for interstitial cystitis. During her stay, she had a chest x-ray which was negative. CT of the brain showed no abnormalities. Brain MRI showed no acute intracranial abnormalities. No mass or hemorrhage. DIET: The patient is to go home on a cardiac, given diet. ACTIVITY: Level as tolerated. FOLLOWUP: Follow up with PCP and Dr. Hinojosa within one month. Dictated by Rohan Alfredo, SAMPSON MD DWAYNE Thomason/MAME /[id number]
== END 2019-05-08 18:27 | disposition home or self-care (01) ==
LOC: ER 13:09 → ERHOLD 15:55 → MED/SURG3 18:47
PROVIDERS: ADMIT Internal Medicine; ATTEND Internal Medicine
DX: R56.9 Unspecified convulsions (principal); F41.9 Anxiety disorder, unspecified; N30.10 Interstitial cystitis (chronic) without hematuria; E78.5 Hyperlipidemia, unspecified
CPT/HCPCS: 36415 ×3; 70450; 70551; 71045; 80048; 80053 ×2; 80061; 80307; 80320; 80329 ×2; 81001; 81025; 82550 ×2; 82553 ×2; 83036; 83735; 84443; 84484 ×2; 84702; 85025 ×2; 87086; 93005; 93306; 93880; 99285; G0378 ×3; J2270 ×3; J2405 ×3; J2550 ×2; J7030 ×2

== ENCOUNTER 2019-12-06 14:42 | Observation (INO) | payer BC, OTHER ==
[~2019-12-06] VITALS: Ht 157.5 cm; Wt 66.8 kg
[~2019-12-06 14:42] MED LIST changes: +AMITRIPTYLINE H25 MG PO; +ASPIRIN325 MG PO; +FLUOXETINE HCL20 MG; +HYDROCODON-ACE1 EAC9; +KEPPRA500 MG/5 M PO; +LYRICA100 MG PO; +ULTRAM 50MG50 MG; +URIBEL CAPSULE1 EACH PO; +ZOFRAN4 MG PO
[2019-12-06 15:22] LABS: BASOPHILS % 0.4 % (0.0-1.0); EOSINOPHILS % 0.4 % (0.0-6.0); HEMATOCRIT 43.8 % (34.2-44.1); HEMOGLOBIN 14.4 g/dL (12.0-16.0); LYMPHOCYTES # (AUTO) 2.4 (1.0-3.2); LYMPHOCYTES % 35.3 % (18.0-39.1); MEAN CORPUSCULAR HEMOGLOBIN 29.3 pg (28-32); MEAN CORPUSCULAR HGB CONC 32.9 g/dL (31-35); MONOCYTES # (AUTO) 0.3 (0.2-0.8); MONOCYTES % 4.9 % (4.4-11.3); NEUTROPHILS # (AUTO) 3.9 (2.1-6.9); NEUTROPHILS % 58.7 % (38.7-80.0); PLATELET COUNT 356 x10e3/uL (140-360); RED BLOOD COUNT 4.92 x10e6/uL (3.6-5.1); RED CELL DISTRIBUTION WIDTH 11.9 % (11.7-14.4)
[2019-12-06 15:34] LABS: ALANINE AMINOTRANSFERASE 14 IU/L (0-55); ALBUMIN 4.4 g/dL (3.5-5.0); ALBUMIN/GLOBULIN RATIO 1.5 (0.8-2.0); ALKALINE PHOSPHATASE 62 IU/L (40-150); BLOOD UREA NITROGEN 12 mg/dL (7-26); BUN/CREATININE RATIO 15 (6-25); CARBON DIOXIDE 23 mmol/L (22-29); CHLORIDE 105 mmol/L (98-107); CREATINE KINASE 114 IU/L (29-168); CREATININE, SERUM 0.79 mg/dL (0.57-1.11); EST GLOMERULAR FILTRATION RATE > 60 ML/MIN (60-); GLUCOSE 119 mg/dL (74-118); SODIUM 139 mmol/L (136-145)
--- NOTE | 2019-12-06 16:02 | Emergency Department Note ---
History of Present Illnes History of Present Illness Chief Complaint: COVID PUI History of Present Illness This is a 34 year old female arrived to the ED with complaints of dizziness chest pain abdominal pain . Chief Complaint Comment PATIENT IN FROM HOME WITH COMPLAINTS OF DIZZINESS, CHEST PAIN AND ABDOMINAL BLOATING X 5 DAYS; STATES SAW HER PCP THURSDAY AND WAS SENT TO CARDIOLOGY BUT THE PAIN IS WORSE TODAY. PATIENT ALERT AND ORIENTED, RESP EVEN AND NONLABORED, APPEARS IN NO DISTRESS, RATES PAIN 08/23 Historian: Patient Arrival Mode: Car Past Medical/Family History Physician Review I have reviewed the patient's past medical and family history. Any updates have been documented here. Past Medical History Recent Fever: No Clinical Suspicion of Infectio: No New/Unexplained Change in Ment: No Other Medical History: ENDOMETRIOSIS LEFT OVARIAN CYST OSTEOPOROSIS INTERSTITIAL CYSTITIS BORDERLINE OVARIAN TUMORS Other Surgery: ENDOMETRIOSIS AND OVARIAN CYST REMOVAL LAPOROSCOPY MINI LAPORATOMY Social History Smoking Cessation: Never Smoker Counseling Performed: Yes Alcohol Use: Social Any Illegal Drug Use: No Physically hurt or threatened: No Other Last Tetanus: UTD Any Pre-Existing Lines (PICC,: No Physical Exam Related Data Allergies: Coded Allergies: cephalexin (Verified Allergy, Severe, 12/06/19) sulfamethoxazole (Verified Allergy, Severe, 12/06/19) trimethoprim (Verified Allergy, Severe, 12/06/19) methylprednisolone (Verified Allergy, Mild, HIVES, 12/06/19) Triage Vital Signs Vital Signs Date Time Temp Pulse Resp B/P (MAP) Pulse Ox O2 Delivery O2 Flow Rate FiO2 12/06/19 14:54 98.4 110 22 158/103 100 Room Air Physical Exam CONSTITUTIONAL HENT EYES NECK PULMONARY CARDIOVASCULAR GASTROINTESTINAL GENITOURINARY SKIN MUSCULOSKELETAL NEUROLOGICAL PSYCHOLOGICAL Results Laboratory Result Diagram: 12/06/19 1501 12/06/19 1501 Laboratory Laboratory Tests Test 12/06/19 15:01 White Blood Count 6.69 x10e3/uL (4.8-10.8) Red Blood Count 4.92 x10e6/uL (3.6-5.1) Hemoglobin 14.4 g/dL (12.0-16.0) Hematocrit 43.8 % (34.2-44.1) Mean Corpuscular Volume 89.0 fL (81-99) Mean Corpuscular Hemoglobin 29.3 pg (28-32) Mean Corpuscular Hemoglobin Concent 32.9 g/dL (31-35) Red Cell Distribution Width 11.9 % (11.7-14.4) Platelet Count 356 x10e3/uL (140-360) Neutrophils (%) (Auto) 58.7 % (38.7-80.0) Lymphocytes (%) (Auto) 35.3 % (18.0-39.1) Monocytes (%) (Auto) 4.9 % (4.4-11.3) Eosinophils (%) (Auto) 0.4 % (0.0-6.0) Basophils (%) (Auto) 0.4 % (0.0-1.0) Neutrophils # (Auto) 3.9 (2.1-6.9) Lymphocytes # (Auto) 2.4 (1.0-3.2) Monocytes # (Auto) 0.3 (0.2-0.8) Eosinophils # (Auto) 0.0 (0.0-0.4) Basophils # (Auto) 0.0 (0.0-0.1) Absolute Immature Granulocyte (auto 0.02 x10e3/uL (0-0.1) Sodium Level 139 mmol/L (136-145) Potassium Level 4.0 mmol/L (3.5-5.1) Chloride Level 105 mmol/L (98-107) Carbon Dioxide Level 23 mmol/L (22-29) Anion Gap 15.0 mmol/L (8-16) Blood Urea Nitrogen 12 mg/dL (7-26) Creatinine 0.79 mg/dL (0.57-1.11) Estimat Glomerular Filtration Rate > 60 ML/MIN (60-) BUN/Creatinine Ratio 15 (6-25) Glucose Level 119 mg/dL (74-118) Calcium Level 9.0 mg/dL (8.4-10.2) Total Bilirubin 0.2 mg/dL (0.2-1.2) Aspartate Amino Transf (AST/SGOT) 20 IU/L (5-34) Alanine Aminotransferase (ALT/SGPT) 14 IU/L (0-55) Alkaline Phosphatase 62 IU/L (40-150) Creatine Kinase 114 IU/L (29-168) Creatine Kinase MB 0.80 ng/mL (0-5.0) Troponin I 0.007 ng/mL (0-0.300) Total Protein 7.4 g/dL (6.5-8.1) Albumin 4.4 g/dL (3.5-5.0) Globulin 3.0 g/dL (2.3-3.5) Albumin/Globulin Ratio 1.5 (0.8-2.0) Lipase 20 U/L (8-78) Human Chorionic Gonadotropin, Qual Negative (NEGATIVE) Assessment & Plan Last Vital Signs Date Time Temp Pulse Resp B/P (MAP) Pulse Ox O2 Delivery O2 Flow Rate FiO2 12/06/19 14:54 98.4 110 22 158/103 100 Room Air Home Meds Active Scripts Ondansetron Hcl* (ZOFRAN*) 4 Mg Tablet, 4 MG PO Q6H PRN for NAUSEA for 14 Days, #30 TAB 0 Refills Prov:LIGIA RIVERA NP 05/08/19 Levetiracetam (KEPPRA) 500 Mg/5 Ml Vial, 500 MG PO BID for 14 Days Prov:LIGIA RIVERA NP 05/08/19 Aspirin (ASPIRIN) 325 Mg Tablet, 325 MG PO DAILY for 14 Days, #14 TAB 0 Refills Prov:LIGIA RIVERA NP 05/08/19 Reported Medications Amitriptyline Hcl (AMITRIPTYLINE HCL) 25 Mg Tablet, 100 MG PO HS, #30 TAB 05/07/19 Hydrocodone Bit/Acetaminophen (HYDROCODON-ACETAMINOPHN 10-325) 1 Each Tablet 05/06/19 Pregabalin (LYRICA) 100 Mg Capsule, 300 MG PO DAILY per Patient Dr. Thakkar is aware of client taking 300 mg of Lyrica from [place] 05/06/19 [facility]/Sod Phos/Phen/Hyos (URIBEL CAPSULE) 1 Each Capsule 05/06/19 Fluoxetine Hcl (FLUOXETINE HCL) 20 Mg Capsule 05/06/19 Tramadol Hcl* (ULTRAM 50MG*) 50 Mg Tab 05/06/19 E-Sxuouej-Okr Estr/Ethin Estra (SEASONIQUE 0.15-0.03-0.01 TAB) 1 Each Tbdspk.3mo 01/13/12 YURY TREVIÑO, Dec 06, 2019 16:02
[2019-12-06] MEDS ORDERED: IOPAMIDOL 370 MG/ML 200 ML INFUS..BTL INJ ONE (16:13)
[2019-12-06] MEDS ORDERED: SODIUM CHLORIDE 0.9% 50ML 50 ML ONE (16:13)
[2019-12-06] MEDS ORDERED: ONDANSETRON HCL INJ 2MG/ML 2ML 2 MG/ML VIAL IV STA (16:37)
--- NOTE | 2019-12-06 16:48 | Diagnostic Imaging Report ---
EXAM: CT Abdomen and Pelvis WITH contrast INDICATION: Abdominal pain COMPARISON: None. TECHNIQUE: Abdomen and pelvis were scanned utilizing a multidetector helical scanner from the lung base to the pubic symphysis after administration of IV contrast. Coronal and sagittal reformations were obtained. Routine protocol was performed. Scan was performed when during portal venous phase. IV CONTRAST: 100 mL of Isovue 370 ORAL CONTRAST: None COMPLICATIONS: None RADIATION DOSE: Total DLP: 302.68 mGy*cm Estimated effective dose: (DLP x 0.015 x size factor) mSv CTDIvol has been reviewed. It is below the limits set by the Radiation Protocol Committee (RPC). Dose modulation, iterative reconstruction, and/or weight based adjustment of the mA/kV was utilized to reduce the radiation dose to as low as reasonably achievable. FINDINGS: LINES and TUBES: None. LOWER THORAX: Unremarkable HEPATOBILIARY: The liver is diffuse hypodense compared to the spleen, consistent with diffuse hepatic diffuse hepatic steatosis. No focal hepatic lesions. No biliary ductal dilation. GALLBLADDER: No radio-opaque stones or sludge. No wall thickening. SPLEEN: No splenomegaly. PANCREAS: No focal masses or ductal dilatation. ADRENALS: No adrenal nodules KIDNEYS/URETERS: Kidneys enhance symmetrically. No hydronephrosis. No cystic or solid mass lesions. No stones. GI TRACT: No abnormal distention, wall thickening, or evidence of bowel obstruction. There is moderate stool burden throughout the colon. Appendix is normal. PELVIC ORGANS/BLADDER: Unremarkable. LYMPH NODES: No lymphadenopathy. VESSELS: Unremarkable. PERITONEUM / RETROPERITONEUM: No free air or fluid. BONES: Unremarkable. SOFT TISSUES: Unremarkable. IMPRESSION: 1. No acute abdominopelvic abnormality identified. 2. Hepatic steatosis. 3. Moderate stool burden throughout the colon can present clinically as constipation. Signed by: Jesus Wolf MD on 12/06/2019 4:44 PM
--- NOTE | 2019-12-06 16:51 | Diagnostic Imaging Report ---
EXAMINATION: CHEST SINGLE (PORTABLE) INDICATION: Chest pain. COMPARISON: Chest x-ray on 05/06/2019. FINDINGS: TUBES and LINES: None. LUNGS: Normal lung volumes. Lungs are clear. No consolidations. Bibasilar atelectasis. PLEURA: No pleural effusion or pneumothorax. HEART AND MEDIASTINUM: The cardiomediastinal silhouette is unremarkable. BONES AND SOFT TISSUES: No acute osseous lesion. Soft tissues are unremarkable. UPPER ABDOMEN: No free air under the diaphragm. IMPRESSION: No acute thoracic radiographic abnormality. Signed by: Jesus Wolf MD on 12/06/2019 4:47 PM
[2019-12-06] MEDS ORDERED: CITRATE OF MAGNESIA 300ML BOTTLE PO ONE (17:45)
[2019-12-06] MEDS: SODIUM CHLORIDE 0.9% 1000ML 1,000 ML IV SCH (18:11)
--- NOTE | 2019-12-06 18:53 | NUR ---
Nursing report given to Jadon MORTON.
--- NOTE | 2019-12-06 19:30 | NUR ---
Report given by ER nurse.
[2019-12-06] MEDS ORDERED: ONDANSETRON HCL INJ 2MG/ML 2ML 2 MG/ML VIAL IV PRN (19:45)
[2019-12-06] MEDS ORDERED: BISACODYL 5 MG TAB EC PO ONE (19:45)
[2019-12-06] MEDS ORDERED: TRAMADOL HCL 50 MG TAB PO PRN (19:45)
[2019-12-06] MEDS ORDERED: HYDRALAZINE HCL 20 MG/ML VIAL IV PRN (19:45)
[2019-12-06] MEDS ORDERED: ACETAMINOPHEN 325 MG TAB PO PRN (19:45)
[2019-12-06 20:00] LABS: COLOR,URINE GREEN (YELLOW)
[2019-12-06 20:01] LABS: BILIRUBIN,URINE SMALL (NEGATIVE); CLARITY,URINE SL CLOUDY (CLEAR); KETONES,URINE NEGATIVE (NEGATIVE); LEUKOCYTE ESTERASE ,URINE NEGATIVE (NEGATIVE); NITRITE,URINE NEGATIVE (NEGATIVE); PROTEIN,URINE DIPSTICK NEGATIVE (NEGATIVE); URINE UROBILINOGEN 0.2 mg/dL (0.2 - 1)
[2019-12-06 20:15] LABS: EPITHELIAL CELLS,URINE FEW /LPF; RBC,URINE 0-5 /HPF (0-5)
[2019-12-06] MEDS ORDERED: TRAMADOL HCL 50 MG TAB ONE (20:17)
[2019-12-06] MEDS ORDERED: FLAGYL250 MG PO (20:37)
[2019-12-06] MEDS ORDERED: BUPRENORP-NALO1 EACH (20:38)
[2019-12-06 20:49] VITALS: BP 160/89
--- NOTE | 2019-12-06 20:54 | NUR ---
Patient arrived to the floor via w/c.
[2019-12-06] MEDS: AMITRIPTYLINE HCL 25 MG TAB PO SCH (21:00)
[2019-12-06] MEDS: KETOROLAC TROMETHAMINE 30 MG/ML VIAL IV PRN (21:30)
[2019-12-06] MEDS ORDERED: LEVETIRACETAM 500 MG TAB PO SCH (22:00)
[2019-12-06 23:00] VITALS: BP 160/89
[2019-12-07] VITALS (9 sets, daily range): BP systolic 95–160; BP diastolic 58–93
[2019-12-07] MEDS ORDERED: HYDROCODONE/APAP 5MG-325MG TAB PO ONE
--- NOTE | 2019-12-07 | NUR ---
Patient c/o pain, crying and upset that correct meds not ordered. Patient received pain meds as ordered by MD.
--- NOTE | 2019-12-07 02:00 | NUR ---
Dr Garcia on the floor to see patient. Orders written and completed. Patient NPO for test.
[2019-12-07] MEDS ORDERED: METRONIDAZOLE 500MG/NS 100ML 100 ML IV STA (02:06)
[2019-12-07] MEDS ORDERED: PANTOPRAZOLE 40 MG 10ML VIAL IV STA (02:10)
[2019-12-07] MEDS: PANTOPRAZOL 40MG/SOD CHL 0.9% 50 ML IV SCH ×3 (02:15→20:45)
[2019-12-07] MEDS ORDERED: METRONIDAZOLE IV ONE (03:00)
[2019-12-07] MEDS ORDERED: [UNRECOGNIZED DRUG - OTHER] IV ONE (03:00)
[2019-12-07] MEDS: HYOSCYAMINE 0.125 MG TAB SL PRN ×4 (03:22→22:58)
[2019-12-07] MEDS: KETOROLAC TROMETHAMINE 30 MG/ML VIAL IV PRN ×2 (04:08→16:30)
[2019-12-07] MEDS: HYDROCODONE/APAP 5MG-325MG TAB PO PRN ×3 (04:09→22:50)
--- NOTE | 2019-12-07 05:16 | NUR ---
Patient c/o pain given meds as ordered by .
[2019-12-07 06:12] LABS: BASOPHILS % 0.3 % (0.0-1.0); EOSINOPHILS # (AUTO) 0.1 (0.0-0.4); EOSINOPHILS % 0.7 % (0.0-6.0); HEMATOCRIT 35.9 % (34.2-44.1); LYMPHOCYTES # (AUTO) 2.6 (1.0-3.2); LYMPHOCYTES % 38.8 % (18.0-39.1); MEAN CORPUSCULAR HEMOGLOBIN 30.2 pg (28-32); MEAN CORPUSCULAR HGB CONC 33.4 g/dL (31-35); MEAN CORPUSCULAR VOLUME 90.2 fL (81-99); MONOCYTES # (AUTO) 0.5 (0.2-0.8); MONOCYTES % 7.4 % (4.4-11.3); NEUTROPHILS # (AUTO) 3.5 (2.1-6.9); NEUTROPHILS % 52.7 % (38.7-80.0); PLATELET COUNT 304 x10e3/uL (140-360); RED BLOOD COUNT 3.98 x10e6/uL (3.6-5.1); RED CELL DISTRIBUTION WIDTH 11.7 % (11.7-14.4)
[2019-12-07 06:41] LABS: ALANINE AMINOTRANSFERASE 12 IU/L (0-55); ALBUMIN 3.6 g/dL (3.5-5.0); ALBUMIN/GLOBULIN RATIO 1.5 (0.8-2.0); ALKALINE PHOSPHATASE 48 IU/L (40-150); ANION GAP 11.1 mmol/L (8-16); BLOOD UREA NITROGEN 12 mg/dL (7-26); BUN/CREATININE RATIO 18 (6-25); CARBON DIOXIDE 22 mmol/L (22-29); CHLORIDE 110 mmol/L (98-107); CREATININE, SERUM 0.68 mg/dL (0.57-1.11); EST GLOMERULAR FILTRATION RATE > 60 ML/MIN (60-); GLUCOSE 77 mg/dL (74-118); POTASSIUM 4.1 mmol/L (3.5-5.1); SODIUM 139 mmol/L (136-145)
--- NOTE | 2019-12-07 06:42 | NUR ---
RECEIVED BEDSIDE SHIFT REPORT FROM OFF GOING NURSE. PATIENT IS RESTING IN BED. NO ACUTE DISTRESS NOTED AT THIS TIME. CALL LIGHT WITHIN REACH. BED IN THE LOWEST POSITION.
[2019-12-07] MEDS: FAMOTIDINE 20 MG TAB PO SCH ×2 (07:30→16:32)
[2019-12-07] MEDS: LUBIPROSTONE 24 MCG CAP PO SCH ×2 (08:00→16:32)
[2019-12-07] MEDS: METRONIDAZOLE 500MG/NS 100ML 100 ML IV SCH ×3 (08:00→20:48)
[2019-12-07] MEDS: PREGABALIN 50 MG CAP PO SCH ×3 (08:01→20:54)
--- NOTE | 2019-12-07 08:35 | NUR ---
PAGED DR. BANKS TO INFORM OF PATIENT'S ALLERGY TO STEROIDS AND MEDICATION ORDERED BY HIM.
[2019-12-07] MEDS ORDERED: LUBIPROSTONE 24 MCG CAP PO SCH (09:00)
[2019-12-07] MEDS ORDERED: FLUOXETINE HCL 20 MG CAP PO SCH (09:00)
[2019-12-07] MEDS ORDERED: LEVETIRACETAM 500 MG TAB PO SCH (09:00)
[2019-12-07] MEDS ORDERED: ASPIRIN 325 MG TAB PO SCH (09:00)
[2019-12-07] MEDS ORDERED: METRONIDAZOLE 500 MG TAB PO SCH (09:00)
[2019-12-07] MEDS ORDERED: HYDROCORTISONE ACETATE 25 MG/SUPP.RECT SUPP RC SCH (09:00)
--- NOTE | 2019-12-07 10:57 | Diagnostic Imaging Report ---
EXAM: Right upper quadrant abdominal ultrasound INDICATION: Right upper quadrant pain COMPARISON: CT abdomen and pelvis of 12/06/2019 TECHNIQUE: Transverse and longitudinal images of the right upper quadrant abdomen were obtained FINDINGS: Liver: Size: 14.8 cm in the right midclavicular line, normal Appearance: Mildly increased echogenicity, smooth contour Mass: No focal masses Gallbladder: No gallbladder distension, pericholecystic fluid, wall thickening, stone, or reported sonographic Salamanca's sign. Gallbladder wall measures 1 mm. Bile Ducts: Intrahepatic Ducts: No dilatation Extrahepatic Ducts: Common bile duct measures 3 mm Pancreas: Visualized portions of the pancreatic head, neck and proximal body are normal. Kidney: The right kidney measures 9.1 cm without evidence of hydronephrosis or stone. Vessels: Aorta: Visualized portions are normal Inferior Vena Cava: Visualized portions are normal Main Portal Vein: 0.8 cm, normal size with hepatopetal flow. Free Fluid: No ascites or pleural effusion IMPRESSION: No sonographic evidence of cholelithiasis or cholecystitis. Mild hepatic steatosis. Signed by: Rupert Infante MD on 12/07/2019 10:53 AM
[2019-12-07] MEDS: SODIUM CHLORIDE 0.9% 1000ML 1,000 ML IV SCH (11:45)
--- NOTE | 2019-12-07 11:50 | NUR ---
PATIENT OFF UNIT FOR HIDA SCAN.
[2019-12-07] MEDS ORDERED: PANTOPRAZOLE SO40 MG PO (12:54)
[2019-12-07] MEDS ORDERED: LEVSIN-SL0.125 MG SL (12:54)
[2019-12-07] MEDS ORDERED: AMITIZA24 MCG PO (12:54)
[2019-12-07] MEDS ORDERED: MECLIZINE HCL12.5 MG PO (12:54)
[2019-12-07] MEDS ORDERED: MECLIZINE HCL 12.5 MG TAB PO PRN (13:00)
[2019-12-07 13:23] LABS: CHOL/HDL RATIO 3.3 (3.0-3.6)
--- NOTE | 2019-12-07 14:24 | NUR ---
PATIENT BACK TO UNIT AT THIS TIME.
[2019-12-07] MEDS: ONDANSETRON HCL INJ 2MG/ML 2ML 2 MG/ML VIAL IV PRN ×2 (15:15→20:50)
--- NOTE | 2019-12-07 15:35 | NUR ---
PATIENT OFF UNIT FOR CT SCAN AT THIS TIME.
--- NOTE | 2019-12-07 15:56 | Diagnostic Imaging Report ---
Exam: Head CT without contrast History: Dizziness Comparison studies: Brain MRI 05/07/2019, head CT 05/06/2019 Technique: Axial images were obtained from the skull base to the vertex. Coronal and sagittal images reconstructed from the axial data. Dose modulation, iterative reconstruction, and/or weight based adjustment of the mA/kV was utilized to reduce the radiation dose to as low as reasonably achievable. Radiation dose: Total DLP: 921.4 mGy*cm. Estimated effective dose: DLP x 0.015 Intravenous contrast: None Findings: Scalp: No abnormalities. Bones: No fracture or destructive lytic or blastic lesion. Incidental small benign osteoma along the posterior outer table of the left parietal calvarium near the posterior vertex. Brain sulci: Appropriate for age. Ventricles: Normal in size and configuration. No hydrocephalus. Extra-axial spaces: No masses, no fluid collection. Parenchyma: No abnormal densities. No masses, acute hemorrhage, acute or chronic vascular insults. Sellar/suprasellar region: No abnormalities. Craniocervical junction: Patent foramen magnum. No Chiari one malformation. Middle ear cavities and mastoids: Clear. Included paranasal sinuses: Clear. Incidental small left frontal ethmoidal osteoma which does not result in frontal ethmoidal recess obstruction. IMPRESSION: 1. No acute intracranial abnormalities. 2. No changes from the prior head CT of 05/06/2019. Signed by: Dr. Fabien Thorne M.D. on 12/07/2019 3:52 PM
[2019-12-07] MEDS ORDERED: PHEN PO SCH (17:00)
[2019-12-07] MEDS ORDERED: SOD PHOS PO SCH (17:00)
[2019-12-07] MEDS ORDERED: BLUE PO SCH (17:00)
[2019-12-07] MEDS ORDERED: MTH PO SCH (17:00)
[2019-12-07] MEDS ORDERED: HYOS PO SCH (17:00)
--- NOTE | 2019-12-07 19:05 | NUR ---
Patient visited in room during nursing rounds. Patient alert and oriented x3. Ambulatory in room prn. Pt on IVF (NS at 50ml/hr) and Protonix drip at 10ml/hr. Patient has frequent upper abd (epigastric) pain and nausea and will be medicated accordingly. Patient stated she plans mother or father to bring her some of her home meds she wants to take tonight. Call pedraza within reach. Will monitor pt closely.
--- NOTE | 2019-12-07 19:29 | NUR ---
BEDSIDE SHIFT REPORT GIVEN TO ONCOMING NURSE. PATIENT IS IN STABLE CONDITION. IV LINE TO RIGHT FOREARM IS PATENT, IV FLUIDS AND PROTONIX DRIP INFUSING. PATIENT DENIES PAIN OR DISCOMFORT AT THIS TIME. CALL LIGHT WITHIN REACH. BED IN THE LOWEST POSITION. Addendum: 12/07/19 at 1944 by LUDIVINA MENEZES RN CORRECTION. PATIENT KEEPS COMPLAINING OF PAIN, SOME TO BE CHRONIC DUE TO ENDOMETRIOSIS.
--- NOTE | 2019-12-07 20:18 | Diagnostic Imaging Report ---
Hepatobiliary Scan with Gallbladder Ejection Fraction Reason for exam: Abdominal pain Report: Following intravenous administration of 5.8 millicuries of Tc-99m mebrofenin, dynamic images of the abdomen in the anterior projection were obtained through 60 minutes. Sincalide (CCK analog) 1.4 micrograms was administered intravenously over 30 minutes with additional imaging for determination of gallbladder ejection fraction. Perfusion to the liver is normal. Extraction of tracer from the blood pool by the liver parenchyma is normal. Tracer is seen promptly within the biliary tract. The gallbladder begins to fill by 20 minutes post-injection of tracer and fills adequately. Tracer is seen in the small bowel by 57 minutes. The gallbladder ejection fraction with administration of sincalide is 93% (normal greater than 40%). Impression: 1. Filling of the gallbladder excludes the diagnosis of acute cystic duct obstruction/acute cholecystitis. 2. Normal gallbladder ejection fraction of 93% does not support the clinical diagnosis of chronic cholecystitis/gallbladder dyskinesia. Signed by: Dr. Marta Sofia M.D. on 12/07/2019 8:14 PM
[2019-12-07] MEDS: PHE/SHARK LIVER OIL/COCOA BUT 24 EA SUPP RC SCH (20:54)
[2019-12-07] MEDS: AMITRIPTYLINE HCL 25 MG TAB PO SCH (20:54)
--- NOTE | 2019-12-07 22:15 | NUR ---
Called and spoke to Rohan Alfredo (ROTARY CUTTER OPERATOR for Dr. Calderon) and informed pt wanting to take her home meds (Uribel and Estrogen). Rohan consented ok for pt to take those aforementioned meds but not the Suboxone home med. Nurse (Messi) informed Rohan on the result of the HIDA Scan. Rohan aware and will let Dr. Butch Garcia decide on next plan for patient.
[2019-12-07] MEDS ORDERED: HOME MEDICATION--PATIENTS OWN PO PRN (22:30)
--- NOTE | 2019-12-07 22:30 | NUR ---
Patient seen in room by Dr. Butch Garcia and MD aware of patient's current condition and HIDA Scan result. MD informed and explained to patient the plan for EGD procedure tomorrow (12/08/19). Patient aware and agreed to have the EGD tomorrow.
[2019-12-07] MEDS ORDERED: DAYSEE PO SCH (23:02)
[2019-12-07] MEDS ORDERED: URIBEL PO ONE (23:15)
--- NOTE | 2019-12-07 23:27 | NUR ---
Patient signed consent form for EGD scheduled tomorrow. Pt aware she is NPO at midnight.
[2019-12-08] VITALS: BP 111/63
[2019-12-08] MEDS: METRONIDAZOLE 500MG/NS 100ML 100 ML IV SCH ×3 (01:50→13:43)
[2019-12-08] MEDS: PANTOPRAZOL 40MG/SOD CHL 0.9% 50 ML IV SCH ×3 (03:15→16:00)
[2019-12-08 04:05] VITALS: BP 104/66
[2019-12-08] MEDS: ONDANSETRON HCL INJ 2MG/ML 2ML 2 MG/ML VIAL IV PRN ×2 (06:05→11:25)
[2019-12-08] MEDS: KETOROLAC TROMETHAMINE 30 MG/ML VIAL IV PRN ×2 (06:05→16:45)
[2019-12-08 06:17] LABS: BASOPHILS % 0.5 % (0.0-1.0); EOSINOPHILS # (AUTO) 0.1 (0.0-0.4); EOSINOPHILS % 1.2 % (0.0-6.0); HEMATOCRIT 36.7 % (34.2-44.1); HEMOGLOBIN 11.9 g/dL (12.0-16.0); LYMPHOCYTES # (AUTO) 2.3 (1.0-3.2); LYMPHOCYTES % 28.9 % (18.0-39.1); MEAN CORPUSCULAR HGB CONC 32.4 g/dL (31-35); MEAN CORPUSCULAR VOLUME 89.5 fL (81-99); MONOCYTES # (AUTO) 0.6 (0.2-0.8); MONOCYTES % 6.8 % (4.4-11.3); NEUTROPHILS % 62.4 % (38.7-80.0); PLATELET COUNT 298 x10e3/uL (140-360); RED CELL DISTRIBUTION WIDTH 11.7 % (11.7-14.4)
--- NOTE | 2019-12-08 06:40 | NUR ---
RECEIVED BEDSIDE SHIFT REPORT FROM OFF GOING NURSE. PATIENT IS RESTING IN BED, NO ACUTE DISTRESS NOTED AT THIS TIME. CALL LIGHT WITHIN REACH. BED IN THE LOWEST POSITION.
[2019-12-08 06:42] LABS: ALANINE AMINOTRANSFERASE 12 IU/L (0-55); ALBUMIN 3.6 g/dL (3.5-5.0); ALBUMIN/GLOBULIN RATIO 1.6 (0.8-2.0); ALKALINE PHOSPHATASE 55 IU/L (40-150); ANION GAP 13.9 mmol/L (8-16); BLOOD UREA NITROGEN 10 mg/dL (7-26); BUN/CREATININE RATIO 15 (6-25); CALCIUM 7.8 mg/dL (8.4-10.2); CARBON DIOXIDE 19 mmol/L (22-29); CHLORIDE 111 mmol/L (98-107); CREATININE, SERUM 0.66 mg/dL (0.57-1.11); EST GLOMERULAR FILTRATION RATE > 60 ML/MIN (60-); GLUCOSE 68 mg/dL (74-118); POTASSIUM 3.9 mmol/L (3.5-5.1); SODIUM 140 mmol/L (136-145)
[2019-12-08] MEDS: FAMOTIDINE 20 MG TAB PO SCH ×2 (07:30→16:19)
[2019-12-08] MEDS: PREGABALIN 50 MG CAP PO SCH ×3 (08:00→16:19)
[2019-12-08] MEDS: PHE/SHARK LIVER OIL/COCOA BUT 24 EA SUPP RC SCH (08:00)
[2019-12-08] MEDS: LUBIPROSTONE 24 MCG CAP PO SCH ×2 (08:00→16:23)
[2019-12-08 09:11] VITALS: BP 113/67
[2019-12-08] MEDS: SODIUM CHLORIDE 0.9% 1000ML 1,000 ML IV SCH (09:30)
[2019-12-08 09:33] VITALS: BP 113/67
[2019-12-08] MEDS ORDERED: FENTANYL 25 MCG/HR PATCH TOP ONE (09:45)
[2019-12-08] MEDS ORDERED: PROPOFOL IV EMULSION 10 MG/ML 20 ML VIAL ONE (12:21)
[2019-12-08] MEDS ORDERED: LIDOCAINE HCL 2% LOCAL INJ 5 ML SDV VIAL INJ ONE (12:21)
[2019-12-08 13:10] VITALS: BP 105/57
[2019-12-08] MEDS ORDERED: KETAMINE HCL INJ 50 MG/ML 10 ML VIAL ONE (13:29)
[2019-12-08] MEDS ORDERED: FENTANYL CITRATE/PF 100MCG/2 ML INJ ONE (13:29)
[2019-12-08] MEDS ORDERED: MIDAZOLAM HCL 2 MG/2 ML VIAL ONE (13:29)
--- NOTE | 2019-12-08 14:03 | NUR ---
PATIENT OFF UNIT AT THIS TIME FOR EGD.
[2019-12-08] MEDS ORDERED: ONDANSETRON HCL INJ 2MG/ML 2ML 2 MG/ML VIAL ONE ×2 (15:40→15:41)
[2019-12-08] MEDS ORDERED: METOCLOPRAMIDE HCL 10 MG/2ML VIAL ONE (15:49)
--- NOTE | 2019-12-08 15:56 | NUR ---
PER DR. Stephen BANKS, PATIENT CAN BE DISCHARGED IF SHE TOLERATES PO INTAKE.
--- NOTE | 2019-12-08 16:00 | NUR ---
PATIENT BACK TO UNIT AT 1554, SHE IS IN STABLE CONDITION. PATIENT HELPED TO BATHROOM AT THIS TIME BY NURSE. PATIENT BACK TO BED. CALL LIGHT WITHIN REACH. BED IN THE LOWEST POSITION.
[2019-12-08] MEDS: HYOSCYAMINE 0.125 MG TAB SL PRN (16:24)
--- NOTE | 2019-12-08 16:27 | Operative Report ---
DATE OF PROCEDURE: 12/08/2019 SURGEON: Brown Garcia MD PROCEDURE: EGD with esophageal dilatation, pyloric channel dilatation and biopsies. ADDITIONAL REFERRING PHYSICIAN: Nico Givens MD. INDICATIONS FOR EGD: Dysphagia, upper abdominal pain. MEDICATIONS: The patient was done under MAC, please see anesthesiologist's note. PROCEDURE IN DETAIL: With the patient in the left lateral decubitus position, a flexible fiberoptic Olympus gastroscope was introduced into the esophagus under direct visualization without any difficulty. There was some patchy erythema noted in distal esophagus. The esophagus was then dilated to size 52-Spanish Nicole. The scope was then advanced with ease into the stomach. Mucosa overlying the antrum and the body revealed some patchy erythema and fiws-xi-jkldardp edema, and biopsies were obtained and sent to stain for H. pylori. The pyloric channel stricture that was dilated to size 20 mm per TTS balloon dilators. The scope was advanced all the way to the second portion of the duodenum. Biopsies were obtained from the proximal second portion and the duodenal bulb to rule out sprue. The scope was then withdrawn back into the stomach and retroflexed, mucosa overlying the fundus and the cardia appeared to be within normal limits. The scope was then straightened out, it was subsequently withdrawn, and the patient tolerated the procedure well. IMPRESSION: 1. Distal esophagitis, mild. 2. Esophagus dilated to size 52-Spanish Nicole. 3. Gastritis, biopsied, biopsies sent to stain for Helicobacter pylori. 4. Pyloric channel stricture dilated to size 20 mm per TTS balloon dilators. 5. Rule out sprue. PLAN: Follow up histology. Continue PPI therapy. Brown Garcia MD [facility] [place]/[facility] /[id number] cc: MD Nico Thomason MD
[2019-12-08 17:03] VITALS: BP 115/73
--- NOTE | 2019-12-08 17:45 | NUR ---
PATIENT TOLERATED DINNER, DENIES N/V OR ABDOMINAL PAIN AFTER EATING.
--- NOTE | 2019-12-08 18:30 | NUR ---
HOME MEDICATION COUNTED BY MAIN NURSE LUDIVINA MENEZES RN AND OTHER FLOOR NURSE GARY EMMANUEL RN. DAYSEE (9 TABLETS), URIBEL (71 CAPSULES), BUPRENORPHINE HCL-NALOXONE HCL (45 FILMS). ALL MEDICATIONS LISTED RETURNED TO PATIENT.
--- NOTE | 2019-12-08 18:45 | NUR ---
RECEIVED DC ORDER FROM SAMPSON PADILLA. PATIENT IS IN STABLE CONDITION. IV LINE TO RIGHT FOREARM DCD WITH TIP INTACT, PRESSURE APPLIED TO SITE, NO BLEEDING NOTED. DISCHARGE TEACHING PROVIDED TO PATIENT, SHE VERBALIZED UNDERSTANDING. TRANSITION OF CARE FOLDER WITH DC PAPERWORK AND PRESCRIPTIONS ON HAND. ALL PERSONAL ITEMS ON HAND. PATIENT ACCOMPANIED TO PRIVATE AUTO VIA WHEELCHAIR BY STAFF.
[2019-12-08] MEDS ORDERED: HOME MEDICATION--PATIENTS OWN PO SCH (21:00)
--- NOTE | 2019-12-09 03:04 | Discharge Summary ---
DISCHARGE DIAGNOSES: Chest pain, dizziness, abdominal pain, chronic pain due to endometriosis. DISCHARGE DIAGNOSES: Chest pain, dizziness, abdominal pain, chronic pain due to endometriosis plus rule out CVA, rule out ME plus distal esophagitis, gastritis, pyloric channel stricture, esophageal stricture plus rule out pancreatitis, rule out COVID, rule out cholelithiasis, rule out cholecystitis, rule out gallbladder dyskinesia. HISTORY: Anxiety, bladder spasms, endometriosis, left ovarian cyst/tumor, interstitial cystitis, seizures. SURGICAL HISTORY: Laparotomy and ovarian cyst removal. FAMILY HISTORY: The patient's grandmother and grandfather had diabetes. Both of the patient's grandfather had cancer and the patient's grandfather also had a stroke. SOCIAL HISTORY: Noncontributory. HOSPITAL COURSE: A 34-year-old female complains of dizziness, chest pain, and abdominal bloating for 5 days. On admission, ultrasound of the abdomen showed no evidence of cholelithiasis or cholecystitis, mild hepatic steatosis. Lipase was within normal limits. LFTs were within normal limits. HIDA scan showed normal gallbladder, EF of 93%. CT of the brain showed no acute abnormalities. UA was negative. Coronavirus negative. The patient was tolerating clear liquid diet, but taken to EGD by GI. In the EGD the patient was found to have esophagitis gastritis and strictures of the pyloric channel and esophagus. At time of discharge the patient is tolerating diet and feeling better. She will discharge home with a new pain patch for fentanyl per Pain Management, due to her endometriosis the patient claims to have severe pain constantly. She follows an outpatient TRANSMISSION AND COORDINATION ENGINEER and an outpatient structural iron erector who specializes in endometriosis and pain management doctor outpatient as well. She will follow up with primary care in 1 to 2 weeks and specialties as listed above. The patient understands instructions and agrees to plan. Vital signs stable, patient afebrile. Dictated by Adelaida Avila NP Javier Calderon MD [facility] /[id number]
--- OUTSIDE RECORDS SUMMARY | 2019-12-11 15:17 | XMS REPORT | Clinical Summary ---
Author Author [facility] Organization 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 Active L-Norgest&E Estradiol-E Take 1 tablet 0 Estrad (SEASONIQUE) 0.15 by mouth mg-30 mcg (84)/10 mcg (7) daily Skips 3MPk placebo dose . Active Mth-Me Blue-Sod Take 1 tablet 0 Rzwr-AuXuo-Qbt (URIBEL) by mouth 118-10-40.8-36 mg cap daily. Active pregabalin (LYRICA) 100 Take 100 mg 0 mg capsule by mouth 2 times daily. Active ergocalciferol (VITAMIN Take 50,000 0 D2) 50,000 unit capsule Units by mouth weekly. Active lidocaine 5 % Gel Apply to 0 affected area. Active Problems Problem Noted Date Chronic pelvic pain in female 09/14/2018 Endometriosis 09/14/2018 Urinary retention Family History Medical History Relation Name Comments Kidney cancer Maternal Grandfather Skin cancer Maternal Grandfather Cervical cancer Other Maternal aunt Colon cancer Paternal Grandfather Relation Name Status Comments Maternal Grandfather Other Paternal Grandfather Social History Date Tobacco Use Types Packs/Day Years Used Never Smoker Smokeless Tobacco: Never Used Tobacco Cessation: Counseling Given: No Drinks/Week oz/Week Comments Alcohol Use Never Alcohol Habits Answer Date Recorded How often do you have a drink containing alcohol? Never 09/14/2018 How many drinks containing alcohol do you have on No t asked a typical day when you are drinking? How often do you have six or more drinks on one Not asked occasion? Sex Assigned at Date Recorded Not on file Industry Job Start Date Occupation Not on file Not on file Not on file Travel End Travel History Travel Start No recent travel history available. Last Filed Vital Signs Not on file Plan of Treatment Health Maintenance Due Date Last Done Comments Cervical Cancer Scrn (3 2005 Yrs) IMM Influenza Seasonal 12/15/2019 Oct to May (>/= 19 yrs) Results Not on fileafter 12/05/2018
--- OUTSIDE RECORDS SUMMARY | 2019-12-11 15:17 | XMS REPORT | Clinical Summary ---
Author Author [facility] Address Unknown Phone Unavailable Care Team Providers Care Air Hose Coupler Name Role Phone PCP Unavailable Allergies Comments Active Allergy Reactions Severity Noted Date Sulfamethoxazole-Trimetho Swelling 06/05/2018 prim Cephalosporins Swelling 06/05/2018 Corticosteroids Hives, Rash Low 06/05/2018 (Glucocorticoids) Medications End Date Status Medication Sig Dispensed Refills Start Date Active amitriptyline (ELAVIL) Take 100 mg 0 100 MG tablet by mouth nightly. Active methen-m.blue-s.phos-phsa Take by 0 l-hyo (URIBEL) mouth. 118-10-40.8-36 mg Cap Active pregabalin (LYRICA) 300 Take 300 mg 0 MG capsule by mouth 2 (two) times daily. Active L-norgest/e.estradiol-e.e Take by 0 strad (CAMRESE LO ORAL) mouth. Active diazePAM (VALIUM) 10 MG Take 10 mg by 0 tablet mouth every 6 (six) hours as needed for Anxiety Vaginal suppository . Active HYDROcodone-acetaminophen Take 1 tablet 0 (NORCO 5-325) 5-325 mg by mouth per tablet every 6 (six) hours as needed for Pain. Active Problems Not on file Social History Date Tobacco Use Types Packs/Day Years Used Never Smoker Smokeless Tobacco: Never Used Alcohol Use Drinks/Week oz/Week Comments No Alcohol Habits Answer Date Recorded How often do you have a drink containing alcohol? Never 06/05/2018 How many drinks containing alcohol do you [...] Signs Not on file Plan of Treatment Not on file Results Not on fileafter 12/05/2018
--- OUTSIDE RECORDS SUMMARY | 2019-12-11 15:17 | XMS REPORT | Clinical Summary ---
Author Author [facility] Address Unknown Phone Unavailable Care Team Providers Care Eyeletter Name Role Phone Akua Villagomez MD PCP Allergies Comments Active Allergy Reactions Severity Noted Date Tongue swelling Cephalexin Swelling High 05/23/2015 Methylprednisolone Hives, Rash Low 05/23/2015 Tongue swelling Sulfamethoxazole-Trimetho Swelling High 11/2015 prim Medications End Date Status Medication Sig Dispensed Refills Start Date Active Methenamine + Hyoscyamine Take 1 tablet 0 + Methylene Blue + by mouth 4 Salicylate + NaPhos (four) times (URELLE) 81-10.8-40.8 mg a day. tablet Active amitriptyline (ELAVIL) Take 100 mg 0 100 MG tablet by mouth nightly. Active promethazine (PHENERGAN) TK 1 T PO Q 8 0 06/06 25 MG tablet H NV 9 Active HYDROcodone-acetaminophen Take 1 tablet 0 (NORCO) 10-325 mg per by mouth as tablet needed. Active L-norgest/e.estradiol-e.e Take 1 tablet 0 strad (SEASONIQUE ORAL) by mouth nightly. Active metoclopramide (REGLAN) Take 10 mg by 0 10 MG tablet mouth 4 (four) times a day. Active lidocaine (XYLOCAINE) 5 % Apply 1 0 ointment application topically as needed for mild pain. URETHRA Active Problems Problem Noted Date Chronic pain 06/16/2018 Syncope 06/16/2018 Chronic interstitial cystitis 12/03/2016 Uterine endometriosis 11/05/2016 Family History Medical History Relation Name Comments Asthma Father Gout Father Diabetes Maternal Grandfather Kidney cancer Maternal Grandfather Skin cancer Maternal Grandfather Stroke Maternal Grandfather Diabetes Maternal Grandmother Scoliosis Mother Relation Name Status Comments Father Maternal Grandfather Maternal Grandmother Mother Social History Date Tobacco Use Types Packs/Day Years Used Never Smoker Smokeless Tobacco: Never Used Drinks/Week oz/Week Comments Alcohol Use No Alcohol Habits Answer Date Recorded How often do you have a drink containing alcohol? Never 06/03/2018 How many drinks containing alcohol do you have on No t asked a typical day when you are drinking? How often do you have six or more drinks on one Not asked occasion? 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
--- OUTSIDE RECORDS SUMMARY | 2019-12-11 15:18 | XMS REPORT | Continuity of Care Document ---
Author Author [facility] t Organization [facility] Address [address] [place] [address] Phone Unavailable Care Team Providers Care Teacher Asst Name Role Phone SAMEERA FRAGA, MD Js SLAUGHTER PCP RALEIGH LAGUNAS Attphys Unavailable ENRIKE DOHERTY Attphys Unavailable RALEIGH LAGUNAS Admphys Unavailable Payers Payer Name Policy Type Policy Number Effective Date Expiration Date S [facility] [id number] 2011 00:00:00 [facility] Problems Condition Name Condition Details Condition Category Status Onset Date Resolution Date Last Treatment Date Treating Clinician Comments Source Chronic pelvic pain in female Chronic pelvic pain in female Disease Active 2018-09-14 00:00:00 [facility] Endometriosis Endometriosis Disease Active 2018-09-14 00:00:00 [facility] 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 Active 2018-08-04 00:00:00 MD Imer viera Chronic pelvic pain of female Chronic pelvic pain of female Disease Active 2018-08-04 00:00:00 MD Imer viera Chronic pain Chronic pain Disease Active 2018-06-16 00:00:00 [facility] Syncope Syncope Disease Active 2018-06-16 00:00:00 Ravi Terry Opioid dependence Opioid dependence Disease Active 2017-02-23 00:00:00 MD Sanford Chronic interstitial cystitis Chronic interstitial cystitis Disease Active 2016-12-03 00:00:00 Ravi Alevism Uterine endometriosis Uterine endometriosis Disease Active 201 09-20-22 00:00:00 Ravi Ayon t Thyroid function tests abnormal Thyroid function tests abnormal Dis ease Active 2015-06-20 00:00:00 MD Imer viera Pain in pelvis Pain in pelvis Disease Active 2014-09-06 00:00:00 MD [facility]ford Chronic interstitial cystitis Chronic interstitial cystitis Disease Active 2014-09-06 00:00:00 MD Imer viera Endometriosis (clinical) Endometriosis (clinical) Disease Acti ve 2014-07-19 00:00:00 MD Sanford Seizure Seizure Problem Active [facility] Abdominal pain Problem Active C [facility] Urinary retention Urinary retention Disease Active [facility] Allergies, Adverse Reactions, Alerts Allergy Name Allergy Type Status Severity Reaction(s) Onset Date Inacti ve Date Treating Clinician Comments Source Tramadol Propensity to adverse reactions Active Severe 2019-11 00:00:00 [facility] Methylprednisolone Allergy to substance Active Mild HIVES 00:00:00 [facility] Cephalexin Allergy to substance Active Severe 2019-12-06 00:00:00 [facility] Sulfamethoxazole Allergy to substance Active Severe 2019-12-06 00: 00:00 [facility] Trimethoprim Allergy to substance Active Severe 2019-12-06 00:00:0 0 [facility] methylprednisolone acetate DA Active MO 2018-06-10 00:00:0 0 [facility] Sulfa (Sulfonamide Antibiotics) DA Active SV 2018-06-10 00 :00:00 [facility] cephalexin DA Active SV 2018-06-10 00:00:00 [facility] sulfamethoxazole DA Active MO 2018-06-10 00:00:00 [facility] trimethoprim DA Active MO 2018-06-10 00:00:00 [facility] Sulfamethoxazole-Trimethoprim Propensity to adverse reactions to dr cinthia Active 2018-06-10 00:00:00 [facility] Cephalexin Propensity to adverse reactions to drug Active 2018-06-10 00:00:00 [facility] Corticosteroids (Glucocorticoids) Propensity to adverse reac tions to drug Active 2018-06-10 00:00:00 [facility] Sulfamethoxazole-Trimethoprim Propensity to adverse reactions Active Swelling 2018-06-05 00:00:00 [facility] Cephalosporins Propensity to adverse reactions Active Swelling 2018-06-05 00:00:00 [facility] Corticosteroids (Glucocorticoids) Propensity to adverse reactions A ctive Hives, Rash 2018-06-05 00:00:00 [facility] methylprednisolone acetate DA Active MO 2016-04-14 00:00:0 0 [facility] Sulfa (Sulfonamide Antibiotics) DA Active SV 2016-04-14 00 :00:00 [facility] cephalexin DA Active SV 2016-04-14 00:00:00 [facility] sulfamethoxazole DA Active MO 2016-04-14 00:00:00 [facility] trimethoprim DA Active MO 2016-04-14 00:00:00 [facility] Cephalexin Propensity to adverse reactions to drug Active Swelling 2015-05-23 00:00:00 Tongue swelling [facility] Methylprednisolone Propensity to adverse reactions to drug Active Hives, Rash 2015-05-23 00:00:00 [place] [facility] Sulfamethoxazole-Trimethoprim Propensity to adverse reactions to dr cinthia Active Swelling 2015-05-23 00:00:00 Tongue swelling [place] [facility] Family History Family Member Diagnosis Comments Start Date Stop Date Source Natural father Asthma [facility] Natural father Gout [facility] Maternal grandfather Diabetes [place] [facility] Maternal grandfather Kidney cancer [place] [facility] Maternal grandfather Skin cancer [place] [facility] Maternal grandfather Stroke [place] [facility] Maternal grandfather Kidney cancer [facility] Maternal grandfather Skin cancer [facility] Maternal grandmother Diabetes [place] [facility] Natural mother Scoliosis [facility] Maternal aunt Cervical cancer [place] Paternal grandfather Colon cancer MD [facility] Paternal grandfather Colon cancer [facility] Other Cervical cancer [facility] alth Social History Social Habit Start Date Stop Date Quantity Comments Source History SDOH Alcohol Std Drinks [facility] History SDOH Alcohol Binge [facility] Sex Assigned [facility] Alcohol intake 2018-10-12 00:00:00 2018-10-12 00:00:00 Lifetime non-drinker (finding) [facility] History SDOH Alcohol Frequency 2018-09-14 00:00:00 2018-09-14 00:00:0 0 1 [facility] Tobacco use and exposure 2018-08-05 00:00:00 2018-08-05 00:00:00 Kael [facility] Smoking Status Start Date Stop Date Source Never smoker [facility] Medications Ordered Medication Name Filled Medication Name Start Date Stop Da te Current Medication? Ordering Clinician Indication Dosage Frequency Signature (SIG) Comments Components Source Hyoscyamine Sulfate (Levsin-Sl) 0.125 Mg TAB.SUBL Hyos cyamine Sulfate (Levsin- Sl) 0.125 Mg TAB.SUBL 2019-12-07 12:54:00 Yes .125 Every 4 Hours as needed for Abdominal Pain [facility] Lubiprostone (Amitiza) 24 Mcg CAPSULE Lubiprostone (Amitiza) 24 Mcg CAPSULE 2019-12-07 12:54:00 Yes 24 Twice Daily With M eals [facility] Meclizine Hcl Meclizine Hcl 2019-12-07 12:54:00 Yes 12.5 Every 6 Hours as needed for Dizziness [facility] Pantoprazole Sodium (Protonix) 40 Mg TABLET. Pantopr azole Sodium (Protonix) 40 Mg TABLET. 2019-12-07 12:54:00 Yes 40 Before Graff kfast [facility] Ondansetron Hcl (Zofran*) 4 Mg TABLET Ondansetron Hcl (Zofra n*) 4 Mg TABLET 2019-05-08 15:35:00 Yes 4 Every 6 Hours as n eeded for Nausea [facility] Levetiracetam (Keppra) 500 Mg/5 Ml VIAL Levetiracetam (Keppr a) 500 Mg/5 Ml VIAL 2019-05-08 15:33:00 2019-12-06 00:00:00 No 500 Twice A Day [facility] L-Norgest&E Estradiol-E Estrad (SEASONIQUE) 0.15 mg-30 mcg (84)/10 mcg (7) 3MPk 2018-10-12 18:56:09 Yes 1{tbl} QD Take 1 tablet by mouth daily Skips placebo dose . [facility] amitriptyline (ELAVIL) 100 mg tablet 2018-10-12 18:56:08 Ye s 100mg Take 100 mg by mouth at bedtime nightly. [facility] Blue-Sod Cyzj-LcWaq-Ajc (URIBEL) 118-10-40.8-36 mg ca p 2018-10-12 18:56:03 Yes 1{tbl} QD Take 1 tablet by mouth daily. [facility] ergocalciferol (VITAMIN D2) 50,000 unit capsule 2018-09-14 12:39 :11 Yes 98993T Take 50,000 Units by mouth weekly. [facility] lidocaine 5 % Gel 2018-09-14 12:39:11 Yes Apply to affected area. [facility] pregabalin (LYRICA) 100 mg capsule 2018-09-14 12:21:32 Yes 100mg Q.5D Take 100 mg by mouth 2 times daily. [facility] cholecalciferol, vitamin D3, (VITAMIN D3) 10,000 units tab t ablet 2018-08-04 15:33:48 Yes 400U Take 400 Units by mouth daily . MD [facility]ford clindamycin (CLEOCIN) 300 mg capsule 2018-08-04 14:41:40 Ye s 300mg Take 300 mg by mouth 3 (three) times a day. MD [facility]ford L norgest/e.estradiol-e.estrad (SEASONIQ UE) 0.15 mg-30 mcg (84)/10 mcg (7) tablet 2018-08-04 14:40:16 Yes 1{tbl} Take 1 tab let by mouth daily. MD [facility] amitriptyline (ELAVIL) 100 mg tablet 2018-08-04 14:38:39 Ye s 100mg Take 100 mg by mouth at bedtime. MD Gennaro [place] URIBEL 118-10-40.8-36 mg cap 2018-06-22 00:00:00 Yes 1{capsule} Take 1 capsule by mouth daily. MD Sanford Methenamine + Hyoscyamine + Methylene Bl ue + Salicylate + NaPhos (URELLE) 81-10.8-40.8 mg tablet 2018-06-19 13:56:35 Yes 1{tbl} Q.25D Take 1 tablet by mouth 4 (four) times a day. Michele Terry amitriptyline (ELAVIL) 100 MG tablet 2018-06-19 13:56:35 Ye s 100mg QD Take 100 mg by mouth nightly. Ravi pina HYDROcodone-acetaminophen (NORCO) 10-325 mg per tablet 2018-06-19 13:56:35 Yes 1{tbl} Take 1 tablet by mouth as needed. Ravi Terry L-norgest/e.estradiol-e.estrad (SEASONIQUE ORAL) 2018-06-19 13:56:35 Yes 1{tbl} QD Take 1 tablet by mouth nightly. Ravi Terry metoclopramide (REGLAN) 10 MG tablet 2018-06-19 13:56:35 Ye s 10mg Q.25D Take 10 mg by mouth 4 (four) times a day. Ravi Terry lidocaine (XYLOCAINE) 5 % ointment 2018-06-19 13:56:35 Y es 1{application} Apply 1 application topically as needed for mild pain. URETHRA Ravi Terry promethazine (PHENERGAN) 25 MG tablet 2018-06-06 00:00:00 Y es TK 1 T PO Q 8 H NV Ravi Terry HYDROcodone-acetaminophen (NORCO 5-325) 5-325 mg per tablet 2018-06-05 08:03:48 Yes 1{tbl} Take 1 tab let by mouth every 6 (six) hours as needed for Pain. [facility] amitriptyline (ELAVIL) 100 MG tablet 2018-06-05 08:03:41 Ye s 100mg QD Take 100 mg by mouth nightly. [facility] methen-mBorisblue-s.qhqt-xubsl-bnl (URIBEL) 118-10-40.8-36 mg Ca p 2018-06-05 08:03:41 Yes Take by mouth. [facility] pregabalin (LYRICA) 300 MG capsule 2018-06-05 08:03:41 Yes 300mg Q.5D Take 300 mg by mouth 2 (two) times daily. [facility] L-norgest/e.estradiol-e.estrad (CAMRESE LO ORAL) 2018-06-05 08:03:41 Yes Take by mouth. [facility] diazePAM (VALIUM) 10 MG tablet 2018-06-05 08:03:41 Yes 10mg Take 10 mg by mouth every 6 (six) hours as needed for Anxiety Vaginal suppository . [facility] lidocaine (XYLOCAINE) 5% ointment 2018-04-08 00:00:00 Ye s 1{application} Apply 1 application topically to affected area(s) as n eeded. MD [facility]ford HYDROcodone-acetaminophen (NORCO) 10 mg-325 mg per tablet 2015-05-18 00:00:00 Yes 1{tbl} Take 1-2 tablets by mouth every 6 (six) hours as needed. MD [facility]ford Amitriptyline Hcl Amitriptyline Hcl Yes 100 Bedt ofe [facility] Buprenorphine Hcl/Naloxone Hcl (Buprenorp-Nalox 8-2 Mg Sl Film) 1 Each FILM Buprenorphine Hcl/Naloxone Hcl (Buprenorp-Nalox 8-2 Mg Sl Film) 1 Each FILM Yes Daily [facility] C-Xgnxdzu-Bnq Estr/Ethin Estra (Seasoniq ue 0.15-0.03-0.01 Tab) 1 Each TBDSPK.3MO E-Otuycyp-Jvl Estr/Ethin Estra (Seasoniq ue 0.15-0.03-0.01 Tab) 1 Each TBDSPK.3MO Yes [facility] Metronidazole (Flagyl) 250 Mg TABLET Metronidazole (Flagyl) 250 Mg TABLET Yes 500 Three Times A Day [facility] Mth/Me Blue/Sod Phos/Phen/Hyos (Uribel Capsule) 1 Each CAPSULE Mth/Me Blue/Sod Phos/Phen/Hyos (Uribel Capsule) 1 Each CAPSULE Yes 1 Twice A Day [facility] Pregabalin (Lyrica) 100 Mg CAPSULE Pregabalin (Lyrica) 100 Mg CAPSULE Yes 100 Three Times A Day [facility] Hydrocodone Bit/Acetaminophen (Hydrocodon-Acetaminophn 10-325) 1 Each TABLET Hydrocodone Bit/Acetaminophen (Hydrocodon-Acetaminophn 10-325) 1 Each TABLET 2019-12-06 00:00:00 No [facility] Amitriptyline Hcl Amitriptyline Hcl 2019-05-06 00:00:00 No 100 Daily [facility] Hydrocodone Bit/Acetaminophen ([place] 10-325 Tablet) 1 Each TABLET Hydrocodone Bit/Acetaminophen ([place] 10-325 Tablet) 1 Each TABLET 2019-05-06 00:00:00 No 1 Every 4 Hours as needed for Pain [facility] Methen/Barbara Alk/Blue/Phen Sa (Urelle Tablet) 1 Each T AB Methen/Barbara Alk/Blue/Phen Sa (Urelle Tablet) 1 Each TAB 2019-05-06 00:00:00 No 1 Four Times Daily [facility] Acetaminophen With Codeine (Tylenol With Codeine #3 Ta blet) 1 Each TABLET Acetaminophen With Codeine (Tylenol With Codeine #3 Tablet) 1 Each TABLET 2016-08-05 00:00:00 No 300 [facility] Escitalopram Oxalate (Lexapro) 10 Mg TABLET Escitalopr am Oxalate (Lexapro) 10 Mg TABLET 2016-08-05 00:00:00 No 20 Daily [facility] Diazepam (Valium) 10 Mg TABLET Diazepam (Valium) 10 Mg TABLET 2015-03-07 00:00:00 No 10 As Needed [facility] Q-Qwwcxwr-Pkw Estr/Ethin Estra (Seasoniq ue 0.15-0.03-0.01 Tab) 1 Each TBDSPK.3MO T-Ohdgcup-Dsy Estr/Ethin Estra (Seasoniq ue 0.15-0.03-0.01 Tab) 1 Each TBDSPK.3MO 2012-01-13 00:00:00 No 1 Daily [facility] Vital Signs Vital Name Observation Time Observation Value Comments Source Body Temperature 2019-12-08 17:03:00 97.4 [degF] [facility] BMI (Body Mass Index) 2019-12-08 04:48:00 27.0 kg/m2 [facility] Weight 2019-12-08 04:41:00 147.38 [lb_av] [facility] Procedures Procedure Date / Time Performed Performing Clinician Paige e US Abdomen limited 2019-12-07 00:00:00 [facility] Computed tomography of brain without radiopaque contrast 2019-11 00:00:00 [facility] Computed tomography of abdomen and pelvis with contrast 00:00:00 [facility] Magnetic resonance imaging of brain without contrast 2019-04 00:00:00 RANDY NICHOLSON [facility] Computed tomography of brain without radiopaque contrast 00:00:00 MIRIAM SANDERS [facility] Plan of Care Planned Activity Planned Date Details Comments Source Future Scheduled Test 2019-12-15 00:00:00 IMM Influenza Seas onal Dec to May (>/= 19 yrs) [code = IMM Influenza Seasonal Dec to May (>/= 19 yrs)] [facility] Future Scheduled Test 2019-10-15 00:00:00 INFLUENZA VACCINE [code = INFLUENZA VACCINE] [facility] Future Scheduled Test 2005 00:00:00 Screening for tom gnant neoplasm of cervix (procedure) [code = 553703244] [facility] Future Scheduled Test 2005 00:00:00 Screening for tom gnant neoplasm of cervix (procedure) [code = 970740178] [facility] Instructions Abdominal Pain - Adult [facility] Instructions Chest Pain - Noncardiac [facility] Instructions Dizziness [facility] Encounters Start Date/Time End Date/Time Encounter Type Admission Type [facility] Care Department Encounter ID Source 2019-05-06 14:55:00 2019-05-08 17:27:00 Discharged Inpatient (obs) 1 JANNETH RALEIGH [facility] [id number] I [facility] 2018-07-15 00:00:00 2018-07-15 00:00:00 Outpatient [facility] [id number] [facility] 2018-06-10 11:41:21 2018-06-10 11:41:21 Emergency [place] [id number] [facility] Results Test Description Test Time Test Comments Results Result Comments Source Blood leukocytes automated count (number/volume) 2019-12-08 05:55:00 Test Item White Blood Count (test code = 6690-2) 8.09 4.8-10.8 [facility] automated count (number/volume)2019-12-08 05:55:00* Test Item Value Reference Range Interpretation Comments Red Blood Count (test code = 789-8) 4.10 3.6-5.1 [facility] measurement (moles/volume)2019-12-08 05:55:00* Test Item Value Reference Range Interpretation Comments Hemoglobin (test code = 22260-1) 11.9 12.0-16.0 [facility] hematocrit (volume fraction)2019-12-08 05:55:00* Test Item Value Reference Range Interpretation Comments Hematocrit (test code = 4544-3) 36.7 34.2-44.1 [facility] erythrocyte mean corpuscular [id number] 05:55:00* Test Item Value Reference Range Interpretation Comments Mean Corpuscular Volume (test code = 787-2) 89.5 81-99 [facility] mean corpuscular hemoglobin (mass per erythrocyte)2019-12-08 05:55:00* Test Item Value Reference Range Interpretation Comments Mean Corpuscular Hemoglobin (test code = 785-6) 29.0 28-32 [facility] erythrocyte mean corpuscular hemoglobin concentration measurement (mass/volume)2019-12-08 05:55:00* Test Item Value Reference Range Interpretation Comments Mean Corpuscular Hemoglobin Concent (test code = 786-4) 32.4 31-35 [facility] HospitalRDW PzcXc-[id number] 05:55:00* Test Item Value Reference Range Interpretation Comments Red Cell Distribution Width (test code = 88799-4) 11.7 11.7 -14.4 [facility] platelet count (count/volume)2019-12-08 05:55:00* Test Item Value Reference Range Interpretation Comments Platelet Count (test code = 777-3) 298 140-360 [facility] segmented neutrophil count as percentage of total xxdjapezix7055-81-58 05:55:00* Test Item Value Reference Range Interpretation Comments Neutrophils (%) (Auto) (test code = 78573-1) 62.4 38.7-80.0 [facility] lymphocyte count as percentage ot total splqguuneh7395-76-55 05:55:00* Test Item Value Reference Range Interpretation Comments Lymphocytes (%) (Auto) (test code = 736-9) 28.9 18.0-39.1 [facility] monocyte count as percentage of total kponwlxlbs2336-35-84 05:55:00* Test Item Value Reference Range Interpretation Comments Monocytes (%) (Auto) (test code = 5905-5) 6.8 4.4-11.3 [facility] eosinophil count as percentage of total cctetpgiiw6913-82-62 05:55:00* Test Item Value Reference Range Interpretation Comments Eosinophils (%) (Auto) (test code = 713-8) 1.2 0.0-6.0 [facility] basophil count as percentage of total tvrgqnlrho3079-32-14 05:55:00* Test Item Value Reference Range Interpretation Comments Basophils (%) (Auto) (test code = 706-2) 0.5 0.0-1.0 [facility] HospitalFluoroscopic procedure less than one hour [id number] 05:55:00* Test Item Value Reference Range Interpretation Comments IM GRANULOCYTES % (test code = IM GRANULOCYTES %) 0.2 0.0- 1.0 [facility] Hospital[facility] neutrophil count 2019-12-08 05:55:00* Test Item Value Reference Range Interpretation Comments Neutrophils # (Auto) (test code = 751-8) 5.0 2.1-6.9 [facility] Hospital[facility] lymphocytes count (number/volume) 2019-12-08 05:55:00* Test Item Value Reference Range Interpretation Comments Lymphocytes # (Auto) (test code = 63416-2) 2.3 1.0-3.2 [facility] Hospital[facility] monocytes automated count (number/volume)2019-12-08 05:55:00* Test Item Value Reference Range Interpretation Comments Monocytes # (Auto) (test code = 742-7) 0.6 0.2-0.8 [facility] HospitalAutom[facility] blood eosinophil count 2019-12-08 05:55:00* Test Item Value Reference Range Interpretation Comments Eosinophils # (Auto) (test code = 711-2) 0.1 0.0-0.4 [facility] HospitalAutom[facility] blood basophil count (count/volume)2019-12-08 05:55:00* Test Item Value Reference Range Interpretation Comments Basophils # (Auto) (test code = 704-7) 0.0 0.0-0.1 [facility] HospitalFluoroscopic procedure less than one hour [id number] 05:55:00* Test Item Value Reference Range Interpretation Comments Absolute Immature Granulocyte (auto (janelle t code = Absolute Immature Granulocyte (auto) 0.02 0-0.1 [facility] sodium measurement (moles/volume)2019-12-08 05:55:00* Test Item Value Reference Range Interpretation Comments Sodium Level (test code = 2951-2) 140 136-145 [facility] plasma potassium measurement (moles/volume)2019-12-08 05:55:00* Test Item Value Reference Range Interpretation Comments Potassium Level (test code = 2823-3) 3.9 3.5-5.1 [facility] plasma chloride measurement (moles/volume)2019-12-08 05:55:00* Test Item Value Reference Range Interpretation Comments Chloride Level (test code = 2075-0) 111 98-107 [facility] plasma carbon dioxide, total measurement (moles/volume)2019-12-08 05:55:00* Test Item Value Reference Range Interpretation Comments Carbon Dioxide Level (test code = 2028-9) 19 22-29 [facility] or plasma anion [id number] 05:55:00* Test Item Value Reference Range Interpretation Comments Anion Gap (test code = 98555-9) 13.9 8-16 [facility] plasma urea nitrogen measurement (mass/volume)2019-12-08 05:55:00* Test Item Value Reference Range Interpretation Comments Blood Urea Nitrogen (test code = 3094-0) 10 7-26 [facility] plasma creatinine measurement (mass/volume)2019-12-08 05:55:00* Test Item Value Reference Range Interpretation Comments Creatinine (test code = 2160-0) 0.66 0.57-1.11 [facility] or plasma urea nitrogen/creatinine mass [id number] 05:55:00* Test Item Value Reference Range Interpretation Comments BUN/Creatinine Ratio (test code = 3097-3) 15 6-25 [facility] HospitalEstimated glomerular filtration rate (GFR) soagxjbbansvk1392-83-23 05:55:00* Test Item Value Reference Range Interpretation Comments Estimat Glomerular Filtration Rate (test code = 021187755) > 60 >60 Ranges were taken from the National Kidney Disease Education Program and the [facility] Foundation literature.Reference ranges:60 or greater: Zidcxm51-67 ( for 3 consecutive months): Chronic kidney disease 15 or less: Kidney failureMemorial Hermann Southeast HospitalGlucose xvkhdvinuxa4437-35-59 05:55:00* Test Item Value Reference Range Interpretation Comments Glucose Level (test code = SXL4245) 68 74-118 [facility] or plasma calcium measurement (mass/volume)2019-12-08 05:55:00* Test Item Value Reference Range Interpretation Comments Calcium Level (test code = 41152-1) 7.8 8.4-10.2 [facility] or plasma magnesium measurement (mass/volume)2019-12-08 05:55:00* Test Item Value Reference Range Interpretation Comments Magnesium Level (test code = 64490-7) 2.0 1.3-2.1 [facility] plasma total bilirubin measurement (mass/volume)2019-12-08 05:55:00* Test Item Value Reference Range Interpretation Comments Total Bilirubin (test code = 1975-2) 0.3 0.2-1.2 [facility] HospitalFluoroscopic procedure less than one hour [id number] 05:55:00* Test Item Value Reference Range Interpretation Comments Aspartate Amino Transf (AST/SGOT) (test code = Aspartate Amino Transf (AST/SGOT)) 17 5-34 [facility] or plasma alanine aminotransferase measurement (enzymatic activity/volume)2019-12-08 05:55:00* Test Item Value Reference Range Interpretation Comments Alanine Aminotransferase (ALT/SGPT) (test code = 1742-6) 12 0-55 [facility] or plasma protein measurement (mass/volume)2019-12-08 05:55:00* Test Item Value Reference Range Interpretation Comments Total Protein (test code = 2885-2) 5.9 6.5-8.1 [facility] plasma albumin measurement (mass/volume)2019-12-08 05:55:00* Test Item Value Reference Range Interpretation Comments Albumin (test code = 1751-7) 3.6 3.5-5.0 [facility] Hospital[facility] globulin measurement (mass/volume) 2019-12-08 05:55:00* Test Item Value Reference Range Interpretation Comments Globulin (test code = 98521-4) 2.3 2.3-3.5 [facility] plasma albumin/globulin mass fvwuk8615-69-72 05:55:00* Test Item Value Reference Range Interpretation Comments Albumin/Globulin Ratio (test code = 1759-0) 1.6 0.8-2.0 [facility] plasma alkaline phosphatase measurement (enzymatic activity/volume)2019-12-08 05:55:00* Test Item Value Reference Range Interpretation Comments Alkaline Phosphatase (test code = 6768-6) 55 40-150 [facility] HospitalHEPT[facility]ILIARY W QSAQB0036-88-81 20:11:00 [facility] [address] [place] [address] Patient Name: JOHNATHAN GAUTHIER MR #: [id number] : 1985 Age/Sex: 34/F Req #: [id number] Adm Physician: RALEIGH LAGUNAS MD Ordered by: YENNIFER BANKS MD Report #: [id number] Location: [facility] Room/Bed: [facility] Procedure: [id number] NM/HEPTO BILIARY W PHARM Exam Date: 12/07/19 Exam Time: 1150 REPORT STATUS: Signed Hepatobili kuldeep Scan with Gallbladder Ejection Fraction Reason for exam: Abdominal pain Report: Following intravenous administration of 5.8 millicuries of Tc-99m mebrofenin, dynamic images of the abdomen in the anterior projection were ob tained through 60 minutes. Sincalide (CCK analog) 1.4 micrograms was administ ered intravenously over 30 minutes with additional imaging for determination o f gallbladder ejection fraction. Perfusion to the liver is normal. Extract ion of tracer from the blood pool by the liver parenchyma is normal. Tracer i s seen promptly within the biliary tract. The gallbladder begins to fill by 2 0 minutes post-injection of tracer and fills adequately. Tracer is seen in th e small bowel by 57 minutes. The gallbladder ejection fraction with administr ation of sincalide is 93% (normal greater than 40%). Impression: 1. Filling of the gallbladder excludes the diagnosis of acute cystic duct obstr uction/acute cholecystitis. 2. Normal gallbladder ejection fraction of 93% do es not support the clinical diagnosis of chronic cholecystitis/gallbladder dys kinesia. Signed by: Dr. Marta Sofia M.D. on 12/07/2019 8:14 PM Dicta maureen By: MARTA SOFIA MD 201 4 Transcribed By: JAZMIN on 12/07/192013 COPY TO: YENNIFER BANKS MD Troponin I measurement by highly sensitive enzyme izersegfjqr3597-75-07 16:00:00* Test Item Value Reference Range Interpretation Comments Troponin I (test code = 56217-7) 0.010 0-0.300 [facility] [id number] 15:47:00 [facility] [address] [address] Patient Name: JOHNATHAN GAUTHIER MR #: [id number] : 1985 Age/Sex: 34/F Req #: [id number] Adm Physician: RALEIGH LAGUNAS MD Ordered by: Randy Nicholson ANATOMY PROFESSOR Report #: [id number] Location: [facility] Room/Bed: [facility] Procedure: [id number] CT/CT ADDY NGUYEN WO Exam Date: 12/07/19 Exam Time: 1546 REPORT STATUS: Signed Exam: Head CT witho ut contrast History: Dizziness Comparison studies: Brain MRI 05/07/2019, he ad CT 05/06/2019 Technique: Axial images were obtained from the skull base to the vertex. Coronal and sagittal images reconstructed from the axial data. Dose modulation, iterative reconstruction, and/or weight based adjustment of the mA/kV was utilized to reduce the radiation dose to as low as reasonably achievable. Radiation dose: Total DLP: 921.4 mGy*cm. Estimated eff ective dose: DLP x 0.015 Intravenous contrast: None Findings: Scalp : No abnormalities. Bones: No fracture or destructive lytic or blastic lesion. Incidental small benign osteoma along the posterior outer table of the left parietal calvarium near the posterior vertex. Brain sulci: Appropriate for age. Ventricles: Normal in size and configuration. No hydrocephalus. Extra- axial spaces: No masses, no fluid collection. Parenchyma: No abnormal d ensities. No masses, acute hemorrhage, acute or chronic vascular insults. Sellar/suprasellar region: No abnormalities. Craniocervical junction: Patent foramen magnum. No Chiari one malformation. Middle ear cavities and mastoi ds: Clear. Included paranasal sinuses: Clear. 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 IMPRESSION: 1. No acute intracranial abnormalities. 2. No marianne nges from the prior head CT of 05/06/2019. Signed by: Dimitri Fuentes on 12/07/2019 3:52 PM Dictated By: MIGUEL ANGEL PENNY MD Electronically Si gned By: MIGUEL ANGEL PENNY MD on 12/07/191551 Transcribed By: JAZMIN on 0 1552 COPY TO: RANDY NICHOLSON NP US ABDOMEN [id number] 10:52:00 [address] [address] Patient Name: JOHNATHAN GAUTHIER MR #: [id number] : 1985 Age/Sex: 34/F Req #: [id number] Adm Physician: RALEIGH LAGUNAS MD Ordered by: Randy Nicholson ANATOMY PROFESSOR Report #: [id number] Location: [facility] Room/Bed: [facility] Procedure: [id number] US/US AB PHILIPPE RAYA Exam Date: 12/07/19 Exam Time: 1011 REPORT STATUS: Signed EXAM: Right upper quadrant abdominal ultrasound INDICATION: Right upper quadrant pain COMPARISON: CT abdomen and pelvis of 12/06/2019 TECHNIQUE: Transverse and longitudinal images of the right upper quadrant abdomen were obtained FIN DAVID: Liver: Size: 14.8 cm in the right midclavicular line, normal A ppearance: Mildly increased echogenicity, smooth contour Mass: No focal masses Gallbladder: No gallbladder distension, pericholecystic fluid, wall thicke dipti, stone, or reported sonographic Salamanca's sign. Gallbladder wall measures 1 mm. Bile Ducts: Intrahepatic Ducts: No dilatation Extrahepatic Ducts : Common bile duct measures 3 mm Pancreas: Visualized portions of the pancre atic head, neck and proximal body are normal. Kidney: The right kidney joseph ures 9.1 cm without evidence of hydronephrosis or stone. Vessels: Aort a: Visualized portions are normal Inferior Vena Cava: Visualized portions are normal Main Portal Vein: 0.8 cm, normal size with hepatopetal flow. Free Fluid: No ascites or pleural effusion IMPRESSION: No sonographic eviden ce of cholelithiasis or cholecystitis. Mild hepatic steatosis. Signed by: Torie Fuller MD on 12/07/2019 10:53 AM Dictated By: TORIE FULLER MD Elec tronically Signed By: TORIE FULLER MD on 12/07/19 1053 Transcribed By: JAZMIN on 12/07/19 1053 COPY TO: RANDY NICHOLSON NP Serum or plasma triglyceride measurement (mass/volume)2019-12-07 05:12:00* Test Item Value Reference Range Interpretation Comments Triglycerides Level (test code = 2571-8) 92 0-149 [facility] cholesterol measurement (mass/volume)2019-12-07 05:12:00* Test Item Value Reference Range Interpretation Comments Cholesterol Level (test code = 2093-3) 167 0-199 Less than 200 mg/dL Low Selu105 - 239 mg/dL Borderline Vpaq334 m g/dl and greater High Risk [facility] plasma cholesterol in LDL measurement (mass/volume) 2019-12-07 05:12:00* Test Item Value Reference Range Interpretation Comments LDL Cholesterol (test code = 2089-1) 98 60-130 [facility] plasma cholesterol in HDL measurement (mass/volume)2019-12-07 05:12:00* Test Item Value Reference Range Interpretation Comments HDL Cholesterol (test code = 2085-9) 51 40-60 [facility] or plasma total cholesterol/cholesterol in HDL mass uaqvh4637-90-44 05:12:00* Test Item Value Reference Range Interpretation Comments Cholesterol/HDL Ratio (test code = 9830-1) 3.3 3.0-3.6 [facility] or plasma thyrotropin measurement by detection limit <= 0.005 miu/l (units/volume)2019-12-07 05:12:00* Test Item Value Reference Range Interpretation Comments Thyroid Stimulating Hormone (TSH) (test code = 54226-7) 3.285 0.350-4.940 [facility] HospitalFluoroscopic procedure less than one hour zfkyubcf2955-52-39 18:45:00* Test Item Value Reference Range Interpretation Comments Coronavirus (PCR) (test code = Coronavirus (PCR)) NOT DETECTED NOTD ETECTED SARS-CoV-2 PCRHologic Aptima SARS-CoV-2 assay is a nucleic amplification test in tended for the qualitative detection of RNA from SARS-CoV-2 from nasopharyngeal (ANATOMY PROFESSOR) specimens. It is used under Emergency Use Authorization (EUA) by FDA.A posi tive result is indicative of the presence of SARS-CoV-2 RNA. Clinical correlatio n with patient history and other diagnostic information is necessary to determin e patient infection status.A negative (Not Detected) result does not preclude SA RS-CoV-2 infection. Clinical Correlation with patient history and other diagnost ic information should be used in patient management decisions.Invalid: Unable to generate a valid result on this specimen. Please submit a new specimen for repr at testing oc clinically indicated.Tesing performed by:[facility] Laboratory Services3 [address] [facility] [address]FKKG [id number], Austen joshi MD, PhDMemorial Hermann Southeast HospitalCHEST SINGLE (PORTABLE) 2019-12-06 16:46:00 [address] [place] [address] Patient Name: JOHNATHAN GAUTHIER MR #: [id number] : 1985 Age/Sex: 34/F Req #: [id number] Adm Physician: Ordered by: YURY TREVIÑO DO Report #: [id number] Location: ER Room/Bed: Procedure: [id number] DX/REBECCA ST SINGLE (PORTABLE) Exam Date: 12/06/19 Exam Time: 1530 REPORT STATUS: Signed EXAMI NATION: CHEST SINGLE (PORTABLE) INDICATION: Chest pain. COMPARISO N: Chest x-ray on 05/06/2019. FINDINGS: TUBES and LINES: Non e. LUNGS: Normal lung volumes. Lungs are clear. No consolidations. Bibas ilar atelectasis. PLEURA: No pleural effusion or pneumothorax. HEAR T AND MEDIASTINUM: The cardiomediastinal silhouette is unremarkable. B ONES AND SOFT TISSUES: No acute osseous lesion. Soft tissues are unremarkabl e. UPPER ABDOMEN: No free air under the diaphragm. IMPRESSION: No acute thoracic radiographic abnormality. Signed by: Jesus Walton MD on 12/06/2019 4:47 PM Dictated By: JESUS WALTON MD Electronically Si gned By: JESUS WALTON MD on 12/06/191646 Transcribed By: JAZMIN on 12/06/191646 COPY TO: YURY TREVIÑO DO CT ABDOMEN/PELVIS [id number] 16:28:00 [place] [address] Patient Name: JOHNATHAN GAUTHIER MR #: [id number] : 1985 Age/Sex: 34/F Req #: [id number] Adm Physician: Ordered by: YURY TREVIÑO DO Report #: [id number] Location: ER Room/Bed: Procedure: [id number] CT/CT ABDOMEN/PELVIS W Exam Date: 12/06/19 Exam Time: 1530 REPORT STATUS: Signed EXAM: CT Abdomen and Pelvis WITH contrast INDICATION: Abdominal pain COMPARISON: No ne. TECHNIQUE: Abdomen and pelvis were scanned utilizing a multidetector helic al scanner from the lung base to the pubic symphysis after administration of I V contrast. Coronal and sagittal reformations were obtained. Routine protocol was performed. Scan was performed when during portal venous phase. IV CONTRAST: 100 mL of Isovue 370 ORAL CONTRAST: None CO MPLICATIONS: None RADIATION DOSE: Total DLP: 302.68 mGy*cm Es timated effective dose: (DLP x 0.015 x size factor) mSv CTDIvol has been reviewed. It is below the limits set by the Radiation Protocol Committee (RPC) . Dose modulation, iterative reconstruction, and/or weight based adjustme nt of the mA/kV was utilized to reduce the radiation dose to as low as reasona chaz achievable. FINDINGS: LINES and TUBES: None. LOWER THORAX: Unremarkable HEPATOBILIARY: The liver is diffuse hypodense compared to the spleen, consistent with diffuse hepatic diffuse hepatic steatosis. No focal hepatic lesions. No biliary ductal dilation. GALLBLADDER: No radio-opaq ue stones or sludge. No wall thickening. SPLEEN: No splenomegaly. PA NCREAS: No focal masses or ductal dilatation. ADRENALS: No adrenal nodule s KIDNEYS/URETERS: Kidneys enhance symmetrically. No hydronephrosis. N o cystic or solid mass lesions. No stones. GI TRACT: No abnormal distent ion, wall thickening, or evidence of bowel obstruction. There is moderate sto ol burden throughout the colon. Appendix is normal. PELVIC ORGANS/BLADDE R: Unremarkable. LYMPH NODES: No lymphadenopathy. VESSELS: Unremarkabl e. PERITONEUM / RETROPERITONEUM: No free air or fluid. BONES: Unremark able. SOFT TISSUES: Unremarkable. IMPRESSION: 1. No acute abdominopelvic abnormality identified. 2. Hepatic steatosis. 3. Mod erate stool burden throughout the colon can present clinically as constipation . Signed by: Jesus Walton MD on 12/06/2019 4:44 PM Dictated By: STACI WALTON MD 43 Tra nscribed By: JAZMIN on 12/06/191643 COPY TO: YURY TREVIÑO DO Urine color vgyyzmjzmdbnn8610-11-69 15:38:00* Test Item Value Reference Range Interpretation Comments Urine Color (test code = 5778-6) GREEN YELLOW [facility] HospitalUrine vpmpzvj6010-18-53 15:38:00* Test Item Value Reference Range Interpretation Comments Urine Clarity (test code = 15970-6) SL CLOUDY CLEAR [facility] Hospitalpecific gravity of Urine by Test strip 2019-12-06 15:38:00* Test Item Value Reference Range Interpretation Comments Urine Specific [place] (test code = 5811-5) 1.020 1.010-1.02 5 [facility] HospitalUrine pH measurement by automated test mezfd1591-28-70 15:38:00* Test Item Value Reference Range Interpretation Comments Urine pH (test code = 44426-6) 6 5-7 [facility] HospitalUrine leukocyte esterase detection by kbduagur0561-95-47 15:38:00* Test Item Value Reference Range Interpretation Comments Urine Leukocyte Esterase (test code = 5799-2) NEGATIVE NEGATIVE [facility] HospitalUrine nitrite qetddtnlb3400-36-85 15:38:00* Test Item Value Reference Range Interpretation Comments Urine Nitrite (test code = 04275-2) NEGATIVE NEGATIVE [facility] HospitalUrine protein measurement by test strip (mass/volume)2019-12-06 15:38:00* Test Item Value Reference Range Interpretation Comments Urine Protein (test code = 5804-0) NEGATIVE NEGATIVE [facility] HospitalUrine glucose teqwdvyct6270-65-70 15:38:00* Test Item Value Reference Range Interpretation Comments Urine Glucose (UA) (test code = 2349-9) NEGATIVE NEGATIVE [facility] HospitalUrine ketones detection by automated test svufc1916-78-64 15:38:00* Test Item Value Reference Range Interpretation Comments Urine Ketones (test code = 67472-4) NEGATIVE NEGATIVE [facility] HospitalUrine urobilinogen measurement by test strip (mass/volume)2019-12-06 15:38:00* Test Item Value Reference Range Interpretation Comments Urine Urobilinogen (test code = 41248-4) 0.2 0.2-1 [facility] HospitalUrine total bilirubin measurement (mass/volume)2019-12-06 15:38:00* Test Item Value Reference Range Interpretation Comments Urine Bilirubin (test code = 1978-6) SMALL NEGATIVE [facility] HospitalUrine erythrocytes afzbmyxms0221-44-53 15:38:00* Test Item Value Reference Range Interpretation Comments Urine Blood (test code = 26425-7) TRACE NEGATIVE [facility] HospitalAutomated urine sediment leukocyte count by microscopy (number/high power field)2019-12-06 15:38:00* Test Item Value Reference Range Interpretation Comments Urine WBC (test code = 5821-4) NONE 0-5 [facility] HospitalErythrocytes detection in urine sediment by light ovwpppblms2100-09-31 15:38:00* Test Item Value Reference Range Interpretation Comments Urine RBC (test code = 41160-0) 0-5 0-5 [facility] HospitalBacteria detection in urine sediment by light wkekecuupc6488-20-79 15:38:00* Test Item Value Reference Range Interpretation Comments Urine Bacteria (test code = 05504-8) NONE NONE [facility] HospitalEpithelial cells detection in urine sediment by light isipkxzuqu3422-79-82 15:38:00* Test Item Value Reference Range Interpretation Comments Urine Epithelial Cells (test code = 03042-2) FEW NONE [facility]er[facility] or plasma creatine kinase measurement (enzymatic activity/volume)2019-12-06 15:01:00* Test Item Value Reference Range Interpretation Comments Creatine Kinase (test code = 2157-6) 114 29-168 [facility] Hospitaler[facility] or plasma creatine kinase MB measurement (mass/volume)2019-12-06 15:01:00* Test Item Value Reference Range Interpretation Comments Creatine Kinase MB (test code = 29288-2) 0.80 0-5.0 [facility] or plasma lipase measurement (enzymatic activity/volume)2019-12-06 15:01:00* Test Item Value Reference Range Interpretation Comments Lipase (test code = 3040-3) 20 8-78 [facility]er[facility] or plasma choriogonadotropin ( test) pyjsxwgmy9798-99-21 15:01:00* Test Item Value Reference Range Interpretation Comments Human Chorionic Gonadotropin, Qual (test code = 2118-8) NEGATIVE NEGATIVE [facility] Hospitalodium Jelcs4951-84-17 07:34:00* Test Item Value Reference Range Interpretation Comments Sodium Level (test code = 2951-2) 140 136-145 [facility] HospitalPotassium Xodfm8538-20-98 07:34:00* Test Item Value Reference Range Interpretation Comments Potassium Level (test code = 2823-3) 4.0 3.5-5.1 [facility] HospitalChloride Ymrqz2073-57-65 07:34:00* Test Item Value Reference Range Interpretation Comments Chloride Level (test code = 2075-0) 111 98-107 H [facility] HospitalCarbon Dioxide Eiutd5072-43-69 07:34:00* Test Item Value Reference Range Interpretation Comments Carbon Dioxide Level (test code = 2028-9) 23 - [facility] HospitalAnion Mow4256-67-73 07:34:00* Test Item Value Reference Range Interpretation Comments Anion Gap (test code = 77981-6) 10.0 8-16 [facility] HospitalBlood Urea Dgzcrxka1930-21-76 07:34:00* Test Item Value Reference Range Interpretation Comments Blood Urea Nitrogen (test code = 3094-0) 10 7-26 [facility] HospitalCreatinine2020-02-23 07:34:00* Test Item Value Reference Range Interpretation Comments Creatinine (test code = 2160-0) 0.74 0.57-1.11 [facility] HospitalBUN/Creatinine Eifvw0690-66-52 07:34:00* Test Item Value Reference Range Interpretation Comments BUN/Creatinine Ratio (test code = 3097-3) 14 6-25 [facility] HospitalEstimat Glomerular Filtration Rate 2019-05-08 07:34:00* Test Item Value Reference Range Interpretation Comments Estimat Glomerular Filtration Rate (test code = 441502070) > 60 >60 Ranges were taken from the National Kidney Disease Education Program and the [facility] Kid[facility] Foundation literature.Reference ranges:60 or greater: [place]03-92 ( for 3 consecutive months): Chronic kidney disease 15 or less: Kidney failureMemorial Hermann Southeast HospitalGlucose Lwipw7042-14-41 07:34:00* Test Item Value Reference Range Interpretation Comments Glucose Level (test code = FGL5285) 93 74-118 [facility] HospitalCalcium Ojfzg9518-38-32 07:34:00* Test Item Value Reference Range Interpretation Comments Calcium Level (test code = 70860-0) 8.6 8.4-10.2 [facility] HospitalMagnesium Udcoe6358-44-63 07:34:00* Test Item Value Reference Range Interpretation Comments Magnesium Level (test code = 17551-6) 2.1 1.3-2.1 [facility] HospitalCreatine Kinase LM2342-94-83 13:57:00* Test Item Value Reference Range Interpretation Comments Creatine Kinase MB (test code = 39258-2) 0.30 0-5.0 [facility] HospitalTroponin C2163-67-47 13:57:00* Test Item Value Reference Range Interpretation Comments Troponin I (test code = HFP7341) < 0.001 0-0.300 [facility] HospitalMRI BRAIN BC7549-73-17 13:28:00 [facility] [address] [address] Patient Name: JOHNATHAN GAUTHIER MR #: [id number] : Age/Sex: 33/F Req #: [id number] Adm Physician: RALEIGH LAGUNAS MD Ordered by: Randy Nicholson ANATOMY PROFESSOR Report #: [id number] Location: MED/SURG3 Room/Bed: [facility] Procedure: [id number] MRI/MRI BRAIN WO Exam Date: Exam Time: REPORT STATUS: Signed History: Syncope, seizure Comparison studies: Head CT 05/06/2019 Technique: Sagittal and axial T2, axial T2 FLAIR, axial T1 FLAIR, axial T2*GRE, axial DWI through the whole brain and dedicated thin position coronal T2 and T2 FLAIR sequences thr ough the hippocampi and temporal lobes. Intravenous contrast: None Findin gs: The coronal T2 and T2 FLAIR sequences are somewhat limited by artifacts related to patient motion. Scalp: Normal in signal. No masses. Bone ma rrow: Normal in signal intensity. Brain sulci: Appropriate for age. Ventr icles: Normal in size. No hydrocephalus. Extra axial spaces: No mass, no fluid collection. Parenchyma: No masses, hemorrhage or acute ischemia. T he hippocampi are grossly normal in size and signal intensity. The forniceal c olumns and mamillary bodies are are symmetric in size and signal intensity. No gross abnormalities of cortical development/cortical migration identified. Mo reover, evaluation for these abnormalities are somewhat limited in the absence of a high resolution 3-D T1 sequence. Single punctate T2 FLAIR hyperintense focus in the left superior frontal white matter is nonspecific and may reflect small gliosis along a prominent perivascular space and is of doubtful clinical significance. Suprasellar region: No abnormalities. Craniocervical ju nction: Patent foramen magnum. No Chiari malformation. Vessels: Normal flow-v oids in the arteries and sinuses. IMPRESSION: 1. No acute intracrania l abnormalities. 2. No mass or hemorrhage. No gross medial temporal sclerosis or or gross abnormalities of cortical development/cortical migration. Si gned by: Dr. Miguel Angel Penny M.D. on 05/07/2019 1:37 PM Dictated By: MIGUEL ANGEL PENNY MD 1337 Tra nscribed By: JAZMIN on 05/07/19 3077 COPY TO: BHARAT,RANDY Stephen BRADEN Creatine Wrnlpo8731-66-45 12:51:00* Test Item Value Reference Range Interpretation Comments Creatine Kinase (test code = 2157-6) 104 29-168 [facility] HospitalThyroid Stimulating Hormone (TSH) 2019-05-07 04:00:00* Test Item Value Reference Range Interpretation Comments Thyroid Stimulating Hormone (TSH) (test code = 18929-0) 2.813 0.350-4.940 [facility] HospitalTotal Aogilmfzu5954-06-74 03:52:00* Test Item Value Reference Range Interpretation Comments Total Bilirubin (test code = 1975-2) 0.2 0.2-1.2 [facility] HospitalAspartate Amino Transf (AST/SGOT) 2019-05-07 03:52:00* Test Item Value Reference Range Interpretation Comments Aspartate Amino Transf (AST/SGOT) (test code = Aspartate Amino Transf (AST/SGOT)) 13 5-34 [facility] HospitalAlanine Aminotransferase (ALT/SGPT) 2019-05-07 03:52:00* Test Item Value Reference Range Interpretation Comments Alanine Aminotransferase (ALT/SGPT) (test code = 1742-6) 12 0-55 [facility] HospitalTotal Trqeigw0977-06-05 03:52:00* Test Item Value Reference Range Interpretation Comments Total Protein (test code = 2885-2) 6.1 6.5-8.1 L [facility] HospitalAlbumin2020-02-22 03:52:00* Test Item Value Reference Range Interpretation Comments Albumin (test code = 1751-7) 3.4 3.5-5.0 L [facility] HospitalGlobulin2020-02-22 03:52:00* Test Item Value Reference Range Interpretation Comments Globulin (test code = 26490-1) 2.7 2.3-3.5 [facility] HospitalAlbumin/Globulin Ohcif2910-47-95 03:52:00 * Test Item Value Reference Range Interpretation Comments Albumin/Globulin Ratio (test code = 1759-0) 1.3 0.8-2.0 [facility] HospitalAlkaline Fxftgsoozvh4844-40-62 03:52:00* Test Item Value Reference Range Interpretation Comments Alkaline Phosphatase (test code = 6768-6) 49 40-150 [facility] HospitalTriglycerides Hehin5287-99-40 03:52:00* Test Item Value Reference Range Interpretation Comments Triglycerides Level (test code = 2571-8) 96 0-149 [facility] HospitalCholesterol Iwqfe5333-75-86 03:52:00* Test Item Value Reference Range Interpretation Comments Cholesterol Level (test code = 2093-3) 210 0-199 H Less than 200 mg/dL Low Cyqg059 - 239 mg/dL Borderline Hmeg993 m g/dl and greater High Risk [facility] HospitalLDL Jbyyqxmpnvc0511-21-37 03:52:00* Test Item Value Reference Range Interpretation Comments LDL Cholesterol (test code = 2089-1) 132 60-130 H [facility] HospitalHDL Yuqjstonzoq9586-87-52 03:52:00* Test Item Value Reference Range Interpretation Comments HDL Cholesterol (test code = 2085-9) 59 40-60 [facility] HospitalCholesterol/HDL Eeurz9242-56-82 03:52:00 * Test Item Value Reference Range Interpretation Comments Cholesterol/HDL Ratio (test code = 9830-1) 3.6 3.0-3.6 [facility] HospitalHemoglobin A1c Jzqjnyz3098-51-92 03:31:00 * Test Item Value Reference Range Interpretation Comments Hemoglobin A1c Percent (test code = Hemoglobin A1c Percent) 5.1 4.0-7.0 [facility] HospitalWhite Blood Hquad3390-39-74 02:44:00* Test Item Value Reference Range Interpretation Comments White Blood Count (test code = 6690-2) 9.68 4.8-10.8 [facility] HospitalRed Blood Epzlt6775-52-53 02:44:00* Test Item Value Reference Range Interpretation Comments Red Blood Count (test code = 789-8) 3.92 3.6-5.1 [facility] HospitalHemoglobin2020-02-22 02:44:00* Test Item Value Reference Range Interpretation Comments Hemoglobin (test code = 86794-3) 12.0 12.0-16.0 [facility] HospitalHematocrit2020-02-22 02:44:00* Test Item Value Reference Range Interpretation Comments Hematocrit (test code = 4544-3) 36.2 34.2-44.1 [facility] HospitalMean Corpuscular Fcoxxl3137-50-52 02:44:00* Test Item Value Reference Range Interpretation Comments Mean Corpuscular Volume (test code = 787-2) 92.3 81-99 [facility] HospitalMean Corpuscular Okenfqjkqz5080 02:44:00* Test Item Value Reference Range Interpretation Comments Mean Corpuscular Hemoglobin (test code = 785-6) 30.6 28-32 [facility] HospitalMean Corpuscular Hemoglobin Concent 2019-05-07 02:44:00* Test Item Value Reference Range Interpretation Comments Mean Corpuscular Hemoglobin Concent (test code = 786-4) 33.1 31-35 [facility] HospitalRed Cell Distribution Zrnlw0006-40-40 02:44:00* Test Item Value Reference Range Interpretation Comments Red Cell Distribution Width (test code = 30062-3) 12.9 11.7 -14.4 [facility] HospitalPlatelet Lkigd4646-69-12 02:44:00* Test Item Value Reference Range Interpretation Comments Platelet Count (test code = 777-3) 335 140-360 [facility] HospitalNeutrophils (%) (Auto)2019-05-07 02:44:00 * Test Item Value Reference Range Interpretation Comments Neutrophils (%) (Auto) (test code = 82099-8) 64.9 38.7-80.0 [facility] HospitalLymphocytes (%) (Auto)2019-05-07 02:44:00 * Test Item Value Reference Range Interpretation Comments Lymphocytes (%) (Auto) (test code = 736-9) 29.1 18.0-39.1 [facility] HospitalMonocytes (%) (Auto)2019-05-07 02:44:00* Test Item Value Reference Range Interpretation Comments Monocytes (%) (Auto) (test code = 5905-5) 4.8 4.4-11.3 [facility] HospitalEosinophils (%) (Auto)2019-05-07 02:44:00 * Test Item Value Reference Range Interpretation Comments Eosinophils (%) (Auto) (test code = 713-8) 0.5 0.0-6.0 [facility] HospitalBasophils (%) (Auto)2019-05-07 02:44:00* Test Item Value Reference Range Interpretation Comments Basophils (%) (Auto) (test code = 706-2) 0.4 0.0-1.0 [facility] HospitalIM GRANULOCYTES %2019-05-07 02:44:00* Test Item Value Reference Range Interpretation Comments IM GRANULOCYTES % (test code = IM GRANULOCYTES %) 0.3 0.0- 1.0 [facility] HospitalNeutrophils # (Auto)2019-05-07 02:44:00* Test Item Value Reference Range Interpretation Comments Neutrophils # (Auto) (test code = 751-8) 6.3 2.1-6.9 [facility] HospitalLymphocytes # (Auto)2019-05-07 02:44:00* Test Item Value Reference Range Interpretation Comments Lymphocytes # (Auto) (test code = 86267-8) 2.8 1.0-3.2 [facility] HospitalMonocytes # (Auto)2019-05-07 02:44:00* Test Item Value Reference Range Interpretation Comments Monocytes # (Auto) (test code = 742-7) 0.5 0.2-0.8 [facility] HospitalEosinophils # (Auto)2019-05-07 02:44:00* Test Item Value Reference Range Interpretation Comments Eosinophils # (Auto) (test code = 711-2) 0.1 0.0-0.4 [facility] HospitalBasophils # (Auto)2019-05-07 02:44:00* Test Item Value Reference Range Interpretation Comments Basophils # (Auto) (test code = 704-7) 0.0 0.0-0.1 [facility] HospitalAbsolute Immature Granulocyte (auto 2019-05-07 02:44:00* Test Item Value Reference Range Interpretation Comments Absolute Immature Granulocyte (auto (janelle t code = Absolute Immature Granulocyte (auto) 0.03 0-0.1 [facility] HospitalFluoroscopic procedure less than one hour paccylgg4497-13-75 01:33:00* Test Item Value Reference Range Interpretation Comments Hemoglobin A1c Percent (test code = Hemoglobin A1c Percent) 5.1 4.0-7.0 [facility] HospitalAcetaminophen Rgiqo2410-45-02 15:23:00* Test Item Value Reference Range Interpretation Comments Acetaminophen Level (test code = 51841-4) < 3.0 10-30 L [facility] HospitalEthyl Alcohol Cehty8161-54-89 15:23:00* Test Item Value Reference Range Interpretation Comments Ethyl Alcohol Level (test code = 5643-2) < 10.0 0.0-10.0 [facility]alicylates Jdzry1340-77-54 15:23:00* Test Item Value Reference Range Interpretation Comments Salicylates Level (test code = 4024-6) < 5.0 0-30 [facility] HospitalHuman Chorionic Gonadotropin, Qual 2019-05-06 15:18:00* Test Item Value Reference Range Interpretation Comments Human Chorionic Gonadotropin, Qual (test code = 2118-8) NEGATIVE NEGATIVE [facility] HospitalUrine Qgry4763-44-24 15:08:00* Test Item Value Reference Range Interpretation Comments Urine Test (test code = 2106-3) NEGATIVE NEGATIVE [facility] HospitalUrine Zqsjc1566-63-03 14:12:00* Test Item Value Reference Range Interpretation Comments Urine Color (test code = 5778-6) GREEN YELLOW H [facility] HospitalUrine Zueycxj3455-47-42 14:12:00* Test Item Value Reference Range Interpretation Comments Urine Clarity (test code = 49861-0) CLEAR CLEAR [facility] HospitalUrine Specific Uuiylfu0526-49-84 14:12:00 * Test Item Value Reference Range Interpretation Comments Urine Specific [place] (test code = 5811-5) 1.030 1.010-1.02 5 H [facility] HospitalUrine uP0051-11-16 14:12:00* Test Item Value Reference Range Interpretation Comments Urine pH (test code = 90035-5) 6 5-7 [facility] HospitalUrine Leukocyte Fpjijhyn7454-06-80 14:12:00* Test Item Value Reference Range Interpretation Comments Urine Leukocyte Esterase (test code = 5799-2) NEGATIVE NEGATIVE [facility] HospitalUrine Apkumaq5486-35-36 14:12:00* Test Item Value Reference Range Interpretation Comments Urine Nitrite (test code = 59590-3) NEGATIVE NEGATIVE [facility] HospitalUrine Mptmeze0188-42-68 14:12:00* Test Item Value Reference Range Interpretation Comments Urine Protein (test code = 5804-0) 1+ NEGATIVE H [facility] HospitalUrine Glucose (UA)2019-05-06 14:12:00* Test Item Value Reference Range Interpretation Comments Urine Glucose (UA) (test code = 2349-9) NEGATIVE NEGATIVE [facility] HospitalUrine Bupnzja4274-89-50 14:12:00* Test Item Value Reference Range Interpretation Comments Urine Ketones (test code = 64502-6) NEGATIVE NEGATIVE [facility] HospitalUrine Opiates Rrmifa9933-08-36 14:12:00* Test Item Value Reference Range Interpretation Comments Urine Opiates Screen (test code = 76632-4) NEGATIVE NEGATIVE ALL TESTS PERFORMED MANUALLY ON Summize TOX/SEE TESTMemorial Hermann [facility] HospitalUrine Barbiturates Bgyduw0789-99-25 14:12:00* Test Item Value Reference Range Interpretation Comments Urine Barbiturates Screen (test code = 774525150) NEGATIVE NEGA TIVE [facility] HospitalUrine Phencyclidine Wwwtsv2718-35-71 14:12:00* Test Item Value Reference Range Interpretation Comments Urine Phencyclidine Screen (test code = 51605-0) NEGATIVE NEGAT JERROD [facility] HospitalUrine Amphetamines Druhsz1910-75-54 14:12:00* Test Item Value Reference Range Interpretation Comments Urine Amphetamines Screen (test code = 11384-8) NEGATIVE NEGATI VE [facility] HospitalUrine Methamphetamines Jwzlli9612-23-82 14:12:00* Test Item Value Reference Range Interpretation Comments Urine Methamphetamines Screen (test code = Urine Metha mphetamines Screen) NEGATIVE NEGATIVE [facility] HospitalUrine Benzodiazepines Hvgjkr8905-20-71 14:12:00* Test Item Value Reference Range Interpretation Comments Urine Benzodiazepines Screen (test code = 75358-9) NEGATIVE NEG ATIVE [facility] HospitalUrine Cocaine Ovbhjp0206-63-79 14:12:00* Test Item Value Reference Range Interpretation Comments Urine Cocaine Screen (test code = 3398-5) NEGATIVE NEGATIVE [facility] HospitalUrine Cannabinoids Yweplg5965-67-70 14:12:00* Test Item Value Reference Range Interpretation Comments Urine Cannabinoids Screen (test code = 53024-6) NEGATIVE NEGATI VE THESE RESULTS ARE FOR MEDICAL TREATMENT ONLYTHIS REPORT CONTAINS UNCONFIR MED SCREENING RESULTS*POSITIVE RESULTS WILL BE CONFIRMED BY REFERENCE LAB UPON R EQUEST CUT-OFFDRUG CLASS CONCENTRATION ng/mLAmphetamines 1000Methamphetamines 1000Cocaine 300Opiate 300Phencyc lidine 25Cannabinoid 50Barbiturates 300Benzodiazepine 300Methadone 300[facility] HospitalU[facility] Methadone Zemrub9856-81-84 14:12:00* Test Item Value Reference Range Interpretation Comments Urine Methadone Screen (test code = 22603-8) NEGATIVE NEGATIVE THESE RESULTS ARE FOR MEDICAL TREATMENT ONLYTHIS REPORT CONTAINS UNCONFIR MED SCREENING RESULTS*POSITIVE RESULTS WILL BE CONFIRMED BY REFERENCE LAB UPON R EQUEST CUT-OFFDRUG CLASS CONCENTRATION ng/mLAmphetamines 1000Methamphetamines 1000Cocaine Metabolite 300Opiate 300Phencyc lidine 25Cannabinoid 50Barbiturates 300Benzodiazepine 300Methadone 300[facility] HospitalUrine Wjsqjosaxkwz7131-14-12 14:12:00* Test Item Value Reference Range Interpretation Comments Urine Urobilinogen (test code = 12252-9) 0.2 0.2-1 [facility] HospitalUrine Wunmcapni1365-89-77 14:12:00* Test Item Value Reference Range Interpretation Comments Urine Bilirubin (test code = 1978-6) MODERATE NEGATIVE [facility] HospitalU[facility] Sbllg8237-17-77 14:12:00* Test Item Value Reference Range Interpretation Comments Urine Blood (test code = 96156-2) 1+ NEGATIVE H [facility] HospitalUrine VTF7704-03-11 14:12:00* Test Item Value Reference Range Interpretation Comments Urine WBC (test code = 5821-4) NONE 0-5 [facility] HospitalUrine HOH8118-13-56 14:12:00* Test Item Value Reference Range Interpretation Comments Urine RBC (test code = 18417-7) NONE 0-5 [facility] HospitalUrine Iyqhyboz4870-36-03 14:12:00* Test Item Value Reference Range Interpretation Comments Urine Bacteria (test code = 17919-7) NONE NONE [facility] HospitalUrine Epithelial Azqke0786-92-91 14:12:00 * Test Item Value Reference Range Interpretation Comments Urine Epithelial Cells (test code = 56859-5) MODERATE NONE [facility] HospitalCHEST SINGLE (PORTABLE)2019-05-06 14:00:00 [facility] [address] [address] Patient Name: JOHNATHAN GAUTHIER MR #: [id number] : 1985 Age/Sex: 33/F Req #: [id number] Adm Physician: Ordered by: MIRIAM SANDERS ANATOMY PROFESSOR Report #: [id number] Location: ER Room/Bed: Procedure: 0221-0 050 DX/CHEST SINGLE (PORTABLE) Exam Date: 05/06/19 E xam Time: 1344 REPORT STATUS: Safia d Chest, portable AP view History: Seizures Comparison: No comparis ons available for review IMPRESSION: The cardiomediastinal silhouette and pulmonary vasculature are within normal limits. The lungs are clear withou t evidence of consolidation or effusion. There are no acute osseous abnormali ties. Signed by: Miguel Escamilla MD on 05/06/2019 2:01 PM Dictated By: MIGUEL ESCAMILLA MD 00 COPY TO: MIRIAM SANDERS ANATOMY PROFESSOR CT BRAIN JA7688-07-89 13:58:00 [address] [address] Patient Name: JOHNATHAN GAUTHIER MR #: [id number] : 1985 Age/Sex: 33/F Req #: [id number] Adm Physician: Ordered by: MIRIAM SANDERS ANATOMY PROFESSOR Report #: [id number] Location: ER Room/Bed: Procedure: 0221-[address]/CT BRAIN WO Exam Date: 05/06/19 Exam Time: 13 35 REPORT STATUS: Signed History : Seizure Comparison studies: None Technique: Axial images were obtain ed from the skull base to the vertex. Coronal and sagittal reconstructions o btained from the axial data. Dose modulation, iterative reconstruction, and/or weight based adjustment of the mA/kV was utilized to reduce the radiation dose to as low as reasonably achievable. Findings: Scalp/skull: No a bnormalities. No fractures, blastic or lytic lesions. Extra-axial spaces: No masses. No fluid collections. Brain sulci: Appropriate for age. Burke tricles: Normal in size and configuration. No hydrocephalus. Parenchyma: No abnormal densities. No masses, hemorrhage, acute or chronic cortical vasc ular insults. Sellar/suprasellar region: No abnormalities Craniocervical junction: Patent foramen magnum. No Chiari one malformation. IMPRESSION: No abnormalities . Signed by: DR Arnulfo Barahona M.D. on 05/06/19 2:07 PM Dictated By: ARNULFO BURLESON MD 06 Transcribed By: JAZMIN on 05/06/191406 COPY TO: MIRIAM SANDERS NP Serum or plasma acetaminophen measurement by screening method (mass/volume)2019-05-06 13:50:00* Test Item Value Reference Range Interpretation Comments Acetaminophen Level (test code = 86329-6) < 3.0 10-30 [facility]erum or plasma ethanol measurement (mass/volume)2019-05-06 13:50:00* Test Item Value Reference Range Interpretation Comments Ethyl Alcohol Level (test code = 5643-2) < 10.0 0.0-10.0 [facility] Hospitalerum or plasma salicylates measurement (mass/volume)2019-05-06 13:50:00* Test Item Value Reference Range Interpretation Comments Salicylates Level (test code = 4024-6) < 5.0 0-30 [facility] HospitalUrine opiates screening ktgo3807-88-15 12:40:00* Test Item Value Reference Range Interpretation Comments Urine Opiates Screen (test code = 60286-1) NEGATIVE NEGATIVE ALL TESTS PERFORMED MANUALLY ON Summize TOX/SEE TESTMem[facility] HospitalBarbiturates screen, mqcaj3089-39-76 12:40:00* Test Item Value Reference Range Interpretation Comments Urine Barbiturates Screen (test code = 597458160) NEGATIVE NEGA TIVE [facility] HospitalUrine phencyclidine detection by screening danbyc9310-09-36 12:40:00* Test Item Value Reference Range Interpretation Comments Urine Phencyclidine Screen (test code = 50231-3) NEGATIVE NEGAT JERROD [facility] HospitalUrine amphetamines detection by screen method > 1000 ng/nY2509-01-59 12:40:00* Test Item Value Reference Range Interpretation Comments Urine Amphetamines Screen (test code = 65612-5) NEGATIVE NEGATI VE [facility] HospitalFluoroscopic procedure less than one hour wrjjdtef6839-89-36 12:40:00* Test Item Value Reference Range Interpretation Comments Urine Methamphetamines Screen (test code = Urine Metha mphetamines Screen) NEGATIVE NEGATIVE [facility] HospitalUrine benzodiazepines detection by screening ytslgm2403-01-70 12:40:00* Test Item Value Reference Range Interpretation Comments Urine Benzodiazepines Screen (test code = 87215-4) NEGATIVE NEG ATIVE [facility] HospitalUrine cocaine measurement (mass/volume) 2019-05-06 12:40:00* Test Item Value Reference Range Interpretation Comments Urine Cocaine Screen (test code = 3398-5) NEGATIVE NEGATIVE [facility] HospitalUrine cannabinoids detection by screening jsrpni7285-15-20 12:40:00* Test Item Value Reference Range Interpretation Comments Urine Cannabinoids Screen (test code = 41288-0) NEGATIVE NEGATI VE THESE RESULTS ARE FOR MEDICAL TREATMENT ONLYTHIS REPORT CONTAINS UNCONFIR MED SCREENING RESULTS*POSITIVE RESULTS WILL BE CONFIRMED BY REFERENCE LAB UPON R EQUEST CUT-OFFDRUG CLASS CONCENTRATION ng/mLAmphetamines 1000Methamphetamines 1000Cocaine 300Opiate 300Phencyc lidine 25Cannabinoid 50Barbiturates 300Benzodiazepine 300Methadone 300[facility] HospitalUrine methadone oqmtgu7439-71-71 12:40:00* Test Item Value Reference Range Interpretation Comments Urine Methadone Screen (test code = 39940-5) NEGATIVE NEGATIVE THESE RESULTS ARE FOR MEDICAL TREATMENT ONLYTHIS REPORT CONTAINS UNCONFIR MED SCREENING RESULTS*POSITIVE RESULTS WILL BE CONFIRMED BY REFERENCE LAB UPON R EQUEST CUT-OFFDRUG CLASS CONCENTRATION ng/mLAmphetamines 1000Methamphetamines 1000Cocaine Metabolite 300Opiate 300Phencyc lidine 25Cannabinoid 50Barbiturates 300Benzodiazepine 300Methadone 300[facility] HospitalUrine human chorionic gonadotropin (hCG) detection 2019-05-06 12:40:00* Test Item Value Reference Range Interpretation Comments Urine Test (test code = 2106-3) NEGATIVE NEGATIVE [facility]- US TRANSVAGINAL NON [id number] 19:31:00 Name: JOHNATHAN GAUTHIER [facility] : 1985 Age/S: 32 / F [address] [facility] Unit #: [id number] Loc: [place], [place] [address] Phys: Jose Gan MD Acct: [id number] Dis Date: Status: REG ER PHONE #: [phone] Exam Date: 07/08/20181928 FAX #: [phone] Reason: pelvic pain EXAMS: CPT CODE: [id number] [place] [address] REASON FOR EXAM: pelvic pain EXAM ORDER DATE: 07/08/2018 5:48 PM Attending MEnriqueta: Jose Gan MD PROCEDURE: - US PELVIS [...] Orig Print D/T: S: 07/08/2018 (1933) Probe: [id number] PAGE 1 Signed Report - US PELVIS [id number] 19:31:00 Name: JOHNATHAN GAUTHIER [facility] : 1985 Age/S: 32 / F [address] [facility] Unit #: [id number] Loc: [place] [address] Phys: Jose Gan MD Acct: [id number] Dis Date: Status: REG ER PHONE #: [phone] Exam Date: 07/08/20181928 FAX #: [phone] Reason: pelvic pain EXAMS: CPT CODE: [id number] US PELVIS COMPLETE 31157 REASON FOR EXAM: pelvic pain EXAM ORDER [...] Lis Dexter RDMS Trnscb Date/Time: 07/08/2018 (1930) [email or web address] Orig Print D/T: S: 07/08/2018 (1933) Probe: PAGE 1 Signed Report COMPREHENSIVE METABOLIC PANEL 2018-07-08 18:26:00* Test Item Value Reference Range Interpretation Comments SODIUM (test code = NA) 136 mmol/L 135-148 N POTASSIUM (test code = K) 4.1 mmol/L 3.5-5.1 N CHLORIDE (test code = CL) 102 mmol/L 101-109 N CARBON DIOXIDE (test code = CO2) 21.7 mmol/L 21-32 N ANION GAP (test code = GAP) 16 mmol/L 10-20 N GLUCOSE (test code = GLU) 85 mg/dL 74-106 N BLOOD UREA NITROGEN (test code = BUN) 19 mg/dL 3-21 N CREATININE (test code = CREAT) 0.73 mg/dL 0.55-1.3 N BUN/CREATININE RATIO (test code = BUN/CREA) 26.0 10-20 H TOTAL PROTEIN (test code = PROT) 8.2 g/dL 6.5-8.4 N ALBUMIN (test code = ALB) 4.1 g/dL 3.4-4.8 N GLOBULIN (test code = GLOB) 4.1 G/DL 1-10 N ALBUMIN/GLOBULIN RATIO (test code = A/G) 1.0 RATIO 0.75-1.50 N CALCIUM (test code = CA) 9.2 mg/dL 8.4-10.2 N BILIRUBIN TOTAL (test code = BILT) 0.40 mg/dL 0.0-1.0 N SGOT/AST (test code = AST) 13 U/L 6-32 N SGPT/ALT (test code = ALT) 30 U/L 12-78 N N ote: Change in REFERENCE RANGE due to new reagent method. ALKALINE PHOSPHATASE TOTAL (test code = ALKP) 78 U/L 38-126 N URINALYSIS [id number] 18:19:00* Test Item Value Reference Range Interpretation Comments UA COLOR (test code = COLU) GREEN YELLOW A UA APPEARANCE (test code = APPU) HAZY CLEAR A UA GLUCOSE DIPSTICK (test code = DGLUU) norm mg/dL NEGATIVE UA BILIRUBIN DIPSTICK (test code = BILU) NEGATIVE mg/dL NEGATIVE UA KETONE DIPSTICK (test code = KETU) 5 (Trace) mg/dL NEGATIVE A UA SPECIFIC GRAVITY (test code = SGU) 1.010 1.001-1.035 UA BLOOD DIPSTICK (test code = SHARRON) 150 (3+) Andre/uL NEGATIVE A UA PH DIPSTICK (test code = DIANA) 7.0 5.0-8.0 UA PROTEIN DIPSTICK (test code = PROU) 100 (2+) mg/dL Neg-15 A UA UROBILINIOGEN DIPSTICK (test code = URO) 1 mg/dL 0.0-0.2 A UA NITRITE DIPSTICK (test code = INES) POSITIVE NEGATIVE UA LEUKOCYTE ESTERASE DIPSTICK (test code = LEUU) 25 Clara/uL (Tra ce) uL NEGATIVE A UA WBC (test code = WBCU) 3-5 per HPF 0-5 UA RBC (test code = RBCU) 11-20 per HPF 0-5 UA EPITHELIAL CELLS (test code = EPIU) Rare (0-1/hpf) per HPF Few UA BACTERIA (test code = BACU) TRACE per HPF NONE UA MUCUS (test code = MUCU) MODERATE per LPF NONE-FEW A Urine Source? Clean CatchUR HCG [id number] 18:19:00* Test Item Value Reference Range Interpretation Comments UR HCG QUAL (test code = HCGQLU) NEGATIVE This HCGQL test is NOT applicable for MALE patients.Check with nurse about probable order error.If Tumor Marker Test needed, nurse should order test "HCGTU"(Test #[id number]) Urine Source? Clean CatchCOMPREHENSIVE METABOLIC [id number] 18:19:00* Test Item Value Reference Range Interpretation Comments SODIUM (test code = NA) 136 mmol/L 135-148 N POTASSIUM (test code = K) 4.1 mmol/L 3.5-5.1 N CHLORIDE (test code = CL) 102 mmol/L 101-109 N CARBON DIOXIDE (test code = CO2) 21.7 mmol/L 21-32 N ANION GAP (test code = GAP) 16 mmol/L 10-20 N GLUCOSE (test code = GLU) 85 mg/dL 74-106 N BLOOD UREA NITROGEN (test code = BUN) 19 mg/dL 3-21 N CREATININE (test code = CREAT) 0.73 mg/dL 0.55-1.3 N BUN/CREATININE RATIO (test code = BUN/CREA) 26.0 10-20 H TOTAL PROTEIN (test code = PROT) gram/dL 6.4-8.2 ALBUMIN (test code = ALB) g/dL 3.4-5.0 GLOBULIN (test code = GLOB) g/dL 2.7-4.2 ALBUMIN/GLOBULIN RATIO (test code = A/G) 0.75-1.50 CALCIUM (test code = CA) 9.2 mg/dL 8.4-10.2 N BILIRUBIN TOTAL (test code = BILT) mg/dL 0.2-1.2 SGOT/AST (test code = AST) IUnit/L 15-37 SGPT/ALT (test code = ALT) U/L 10-69 ALKALINE PHOSPHATASE TOTAL (test code = ALKP) IUnit/L 45-117 URINALYSIS [id number] 18:09:00* Test Item Value Reference Range Interpretation Comments UA COLOR (test code = COLU) GREEN YELLOW A UA APPEARANCE (test code = APPU) HAZY CLEAR A UA GLUCOSE DIPSTICK (test code = DGLUU) norm mg/dL NEGATIVE UA BILIRUBIN DIPSTICK (test code = BILU) NEGATIVE mg/dL NEGATIVE UA KETONE DIPSTICK (test code = KETU) 5 (Trace) mg/dL NEGATIVE A UA SPECIFIC GRAVITY (test code = SGU) 1.010 1.001-1.035 UA BLOOD DIPSTICK (test code = SHARRON) 150 (3+) Andre/uL NEGATIVE A UA PH DIPSTICK (test code = DIANA) 7.0 5.0-8.0 UA PROTEIN DIPSTICK (test code = PROU) 100 (2+) mg/dL Neg-15 A UA UROBILINIOGEN DIPSTICK (test code = URO) 1 mg/dL 0.0-0.2 A UA NITRITE DIPSTICK (test code = INES) POSITIVE NEGATIVE UA LEUKOCYTE ESTERASE DIPSTICK (test code = LEUU) 25 Clara/uL (Tra ce) uL NEGATIVE A UA WBC (test code = WBCU) per HPF 0-5 UA RBC (test code = RBCU) per HPF 0-5 UA EPITHELIAL CELLS (test code = EPIU) per HPF Few UA BACTERIA (test code = BACU) per HPF NONE Urine Source? Clean CatchUR HCG [id number] 18:09:00* Test Item Value Reference Range Interpretation Comments UR HCG QUAL (test code = HCGQLU) Urine Source? Clean CatchURINALYSIS [id number] 18:09:00* Test Item Value Reference Range Interpretation Comments UA COLOR (test code = COLU) GREEN YELLOW A UA APPEARANCE (test code = APPU) HAZY CLEAR A UA GLUCOSE DIPSTICK (test code = DGLUU) norm mg/dL NEGATIVE UA BILIRUBIN DIPSTICK (test code = BILU) NEGATIVE mg/dL NEGATIVE UA KETONE DIPSTICK (test code = KETU) 5 (Trace) mg/dL NEGATIVE A UA SPECIFIC GRAVITY (test code = SGU) 1.010 1.001-1.035 UA BLOOD DIPSTICK (test code = SHARRON) 150 (3+) Andre/uL NEGATIVE A UA PH DIPSTICK (test code = DIANA) 7.0 5.0-8.0 UA PROTEIN DIPSTICK (test code = PROU) 100 (2+) mg/dL Neg-15 A UA UROBILINIOGEN DIPSTICK (test code = URO) 1 mg/dL 0.0-0.2 A UA NITRITE DIPSTICK (test code = INES) POSITIVE NEGATIVE UA LEUKOCYTE ESTERASE DIPSTICK (test code = LEUU) 25 Clara/uL (Tra ce) uL NEGATIVE A UA WBC (test code = WBCU) per HPF 0-5 UA RBC (test code = RBCU) per HPF 0-5 UA EPITHELIAL CELLS (test code = EPIU) per HPF Few UA BACTERIA (test code = BACU) per HPF NONE Urine Source? Clean CatchUR HCG [id number] 18:09:00* Test Item Value Reference Range Interpretation Comments UR HCG QUAL (test code = HCGQLU) NEGATIVE This HCGQL test is NOT applicable for MALE patients.Check with nurse about probable order error.If Tumor Marker Test needed, nurse should order test "HCGTU"(Test #550.84441) Urine Source? Clean CatchCBC W/AUTO [id number] 18:08:00* Test Item Value Reference Range Interpretation Comments WHITE BLOOD CELL (test code = WBC) 8.6 K/mm3 4.5-12.5 N RED BLOOD CELL (test code = RBC) 4.41 mill/mm3 3.7-5.2 N HEMOGLOBIN (test code = HGB) 13.7 gram/dL 11.5-15.5 N HEMATOCRIT (test code = HCT) 41.5 % 36.0-46.0 N MEAN CELL VOLUME (test code = MCV) 94.1 fL 80-98 N MEAN CELL HGB (test code = MCH) 31.1 picogram 27.0-33.0 N MEAN CELL HGB CONCETRATION (test code = MCHC) 33.0 gram/dL 33.0-36. 0 N RED CELL DISTRIBUTION WIDTH (test code = RDW) 13.6 % 11.6-16. 2 N RED CELL DISTRIBUTION WIDTH SD (test code = RDW-SD) 45.1 fL 39 .1-52.0 N PLATELET COUNT (test code = PLT) 399 K/mm3 150-450 N MEAN PLATELET VOLUME (test code = MPV) 9.4 fL 6.7-11.0 N NEUTROPHIL % (test code = NT%) 69.4 % 39.0-69.0 H LYMPHOCYTE % (test code = LY%) 25.3 % 25.0-55.0 N MONOCYTE % (test code = MO%) 4.7 % 0.0-10.0 N EOSINOPHIL % (test code = EO%) 0.3 % 0.0-5.0 N BASOPHIL % (test code = BA%) 0.3 % 0.0-1.0 N NEUTROPHIL # (test code = NT#) 5.98 K/mm3 1.8-7.7 N LYMPHOCYTE # (test code = LY#) 2.19 K/mm3 1.0-5.0 N MONOCYTE # (test code = MO#) 0.41 K/mm3 0-0.8 N EOSINOPHIL # (test code = EO#) 0.03 K/mm3 0.0-0.5 N BASOPHIL # (test code = BA#) 0.03 K/mm3 0.0-0.2 N MANUAL DIFF REQUIRED (test code = MDIFF) NO BASIC METABOLIC [id number] 06:57:00* Test Item Value Reference Range Interpretation Comments SODIUM (test code = NA) 139 mmol/L 136-145 N POTASSIUM (test code = K) 3.8 mmol/L 3.5-5.1 N CHLORIDE (test code = CL) 107.0 mmol/L 98-107 N CARBON DIOXIDE (test code = CO2) mmol/L 21-32 ANION GAP (test code = GAP) 10-20 GLUCOSE (test code = GLU) mg/dL 74-106 BLOOD UREA NITROGEN (test code = BUN) mg/dL 7-18 GLOMERULAR FILTRATION RATE (test code = GFR) mL/min >=60 CREATININE (test code = CREAT) mg/dL 0.55-1.02 BUN/CREATININE RATIO (test code = BUN/CREA) 10-20 CALCIUM (test code = CA) mg/dL 8.5-10.1 HEPATIC FUNCTION [id number] 06:57:00* Test Item Value Reference Range Interpretation Comments TOTAL PROTEIN (test code = PROT) gram/dL 6.4-8.2 ALBUMIN (test code = ALB) g/dL 3.4-5.0 GLOBULIN (test code = GLOB) gram/dL 2.7-4.2 ALBUMIN/GLOBULIN RATIO (test code = A/G) 0.75-1.50 BILIRUBIN TOTAL (test code = BILT) mg/dL 0.0-1.0 BILIRUBIN DIRECT (test code = BILD) mg/dL 0.0-0.20 SGOT/AST (test code = AST) IUnit/L 15-37 SGPT/ALT (test code = ALT) IUnit/L 12-78 ALKALINE PHOSPHATASE TOTAL (test code = ALKP) IUnit/L 45-117 [id number] 06:57:00* Test Item Value Reference Range Interpretation Comments LIPASE (test code = LIP) U/L 73.0-393.0 HCG SERUM [id number] 06:57:00* Test Item Value Reference Range Interpretation Comments HCG SERUM QUAL (test code = HCGQL) NEGATIVE NEGATIVE This HCGQL test is NOT applicable for MALE patients.Check with nurse about probable order error.If Tumor Marker Test needed, nurse should order test "HCGTU"(Test #550.30166) BASIC METABOLIC [id number] 06:57:00* Test Item Value Reference Range Interpretation Comments SODIUM (test code = NA) 139 mmol/L 136-145 N POTASSIUM (test code = K) 3.8 mmol/L 3.5-5.1 N CHLORIDE (test code = CL) 107.0 mmol/L 98-107 N CARBON DIOXIDE (test code = CO2) 21.0 mmol/L 21-32 N ANION GAP (test code = GAP) 14.8 10-20 N GLUCOSE (test code = GLU) 81 mg/dL 74-106 N BLOOD UREA NITROGEN (test code = BUN) 11 mg/dL 7-18 N GLOMERULAR FILTRATION RATE (test code = GFR) > 60 mL/min >=60 Estimated GFR by using Modified MDRD formula.Chronic kidney disease is defined as either kidney damageor GFR <60 mL/min/1.73 m2 for >3 months. CREATININE (test code = CREAT) 0.80 mg/dL 0.55-1.02 N Note change in reference range due to change in reagent. BUN/CREATININE RATIO (test code = BUN/CREA) 13.8 10-20 N CALCIUM (test code = CA) 9.1 mg/dL 8.5-10.1 N HEPATIC FUNCTION [id number] 06:57:00* Test Item Value Reference Range Interpretation Comments TOTAL PROTEIN (test code = PROT) 7.9 gram/dL 6.4-8.2 N ALBUMIN (test code = ALB) 4.1 g/dL 3.4-5.0 N GLOBULIN (test code = GLOB) 3.8 gram/dL 2.7-4.2 N ALBUMIN/GLOBULIN RATIO (test code = A/G) 1.1 0.75-1.50 N BILIRUBIN TOTAL (test code = BILT) 0.40 mg/dL 0.0-1.0 N BILIRUBIN DIRECT (test code = BILD) 0.12 mg/dL 0.0-0.20 N SGOT/AST (test code = AST) 22 IUnit/L 15-37 N SGPT/ALT (test code = ALT) 28 IUnit/L 12-78 N ALKALINE PHOSPHATASE TOTAL (test code = ALKP) 75 IUnit/L 45-117 N Note change in reference range due to change in reagent. [id number] 06:57:00* Test Item Value Reference Range Interpretation Comments LIPASE (test code = LIP) 188 U/L 73.0-393.0 N HCG SERUM [id number] 06:57:00* Test Item Value Reference Range Interpretation Comments HCG SERUM QUAL (test code = HCGQL) NEGATIVE NEGATIVE This HCGQL test is NOT applicable for MALE patients.Check with nurse about probable order error.If Tumor Marker Test needed, nurse should order test "HCGTU"(Test #550.81476) CBC W/O [id number] 06:56:00* Test Item Value Reference Range Interpretation Comments WHITE BLOOD CELL (test code = WBC) 8.5 K/mm3 4.5-12.5 N RED BLOOD CELL (test code = RBC) 4.37 mill/mm3 3.7-5.2 N HEMOGLOBIN (test code = HGB) 13.3 gram/dL 11.5-15.5 N HEMATOCRIT (test code = HCT) 39.0 % 36.0-46.0 N MEAN CELL VOLUME (test code = MCV) 89.2 fL 80-98 N MEAN CELL HGB (test code = MCH) 30.4 picogram 27.0-33.0 N MEAN CELL HGB CONCETRATION (test code = MCHC) 34.1 gram/dL 33.0-36. 0 N RED CELL DISTRIBUTION WIDTH (test code = RDW) 11.5 % 11.6-16. 2 L PLATELET COUNT (test code = PLT) 362 K/mm3 150-450 N MEAN PLATELET VOLUME (test code = MPV) 10.3 fL 6.7-11.0 N CBC W/O [id number] 06:47:00* Test Item Value Reference Range Interpretation Comments WHITE BLOOD CELL (test code = WBC) K/mm3 4.5-12.5 RED BLOOD CELL (test code = RBC) mill/mm3 3.7-5.2 HEMOGLOBIN (test code = HGB) 13.3 gram/dL 11.5-15.5 N HEMATOCRIT (test code = HCT) 39.0 % 36.0-46.0 N MEAN CELL VOLUME (test code = MCV) fL 80-98 MEAN CELL HGB (test code = MCH) picogram 27.0-33.0 MEAN CELL HGB CONCETRATION (test code = MCHC) gram/dL 33.0-36. 0 RED CELL DISTRIBUTION WIDTH (test code = RDW) % 11.6-16. 2 PLATELET COUNT (test code = PLT) K/mm3 150-450 MEAN PLATELET VOLUME (test code = MPV) fL 6.7-11.0 BASIC METABOLIC [id number] 06:44:00* Test Item Value Reference Range Interpretation Comments SODIUM (test code = NA) 139 mmol/L 136-145 N POTASSIUM (test code = K) 3.8 mmol/L 3.5-5.1 N CHLORIDE (test code = CL) 107.0 mmol/L 98-107 N CARBON DIOXIDE (test code = CO2) mmol/L 21-32 ANION GAP (test code = GAP) 10-20 GLUCOSE (test code = GLU) mg/dL 74-106 BLOOD UREA NITROGEN (test code = BUN) mg/dL 7-18 GLOMERULAR FILTRATION RATE (test code = GFR) mL/min >=60 CREATININE (test code = CREAT) mg/dL 0.55-1.02 BUN/CREATININE RATIO (test code = BUN/CREA) 10-20 CALCIUM (test code = CA) mg/dL 8.5-10.1 HEPATIC FUNCTION [id number] 06:44:00* Test Item Value Reference Range Interpretation Comments TOTAL PROTEIN (test code = PROT) gram/dL 6.4-8.2 ALBUMIN (test code = ALB) g/dL 3.4-5.0 GLOBULIN (test code = GLOB) gram/dL 2.7-4.2 ALBUMIN/GLOBULIN RATIO (test code = A/G) 0.75-1.50 BILIRUBIN TOTAL (test code = BILT) mg/dL 0.0-1.0 BILIRUBIN DIRECT (test code = BILD) mg/dL 0.0-0.20 SGOT/AST (test code = AST) IUnit/L 15-37 SGPT/ALT (test code = ALT) IUnit/L 12-78 ALKALINE PHOSPHATASE TOTAL (test code = ALKP) IUnit/L 45-117 [id number] 06:44:00* Test Item Value Reference Range Interpretation Comments LIPASE (test code = LIP) U/L 73.0-393.0 HCG SERUM [id number] 06:44:00* Test Item Value Reference Range Interpretation Comments HCG SERUM QUAL (test code = HCGQL) NEGATIVE U/S, RENAL, [id number] 10:41:00Reason for exam:->URINARY RETENTIONx 5 daysReason for [...] bilaterally with no evidence of hydronephrosis. Signed: Lesvia Sanchez MDR eport Verified Date/Time: 06/05/2018 10:41:20 Reading Location: [facility] [id number] Or [facility] Consult Reading Room ALYSIS W/ REFLEX URINE [id number] 10:38:00* Test Item Value Reference Range Interpretation Comments COLOR (BEAKER) (test code = 470) Colorless CLARITY (BEAKER) (test code = 469) Hazy SPECIFIC GRAVITY UA (BEAKER) (test code = 468) 1.002 1.001-1 .035 PH UA (BEAKER) (test code = 467) 6.0 5.0-8.0 PROTEIN UA (BEAKER) (test code = 464) Negative Negative GLUCOSE UA (BEAKER) (test code = 365) Negative Negative KETONES UA (BEAKER) (test code = 371) 40 mg/dL Negative A BILIRUBIN UA (BEAKER) (test code = 462) Negative Negative BLOOD UA (BEAKER) (test code = 461) Moderate Negative A NITRITE UA (BEAKER) (test code = 465) Negative Negative LEUKOCYTE ESTERASE UA (BEAKER) (test code = 466) Negative Negat jerrod UROBILINOGEN UA (BEAKER) (test code = 463) 0.2 mg/dL 0.2-1.0 RBC UA (BEAKER) (test code = 519) 2 /HPF WBC UA (BEAKER) (test code = 520) 1 /HPF BACTERIA (BEAKER) (test code = 517) Rare SQUAMOUS EPITHELIAL (BEAKER) (test code = 516) 1 /HPF SOURCE(BEAKER) (test code = 2795) HEPATIC FUNCTION [id number] 10:38:00* Test Item Value Reference Range Interpretation Comments TOTAL PROTEIN (BEAKER) (test code = 770) 6.9 gm/dL 6.0-8.3 ALBUMIN (BEAKER) (test code = 1145) 4.0 g/dL 3.5-5.0 BILIRUBIN TOTAL (BEAKER) (test code = 377) 0.5 mg/dL 0.2-1.2 BILIRUBIN DIRECT (BEAKER) (test code = 706) 0.3 mg/dL 0.1-0.5 ALKALINE PHOSPHATASE (BEAKER) (test code = 346) 63 U/L 40-150 AST (SGOT) (BEAKER) (test code = 353) 37 U/L 5-34 H ALT (SGPT) (BEAKER) (test code = 347) 31 U/L 6-55 BASIC METABOLIC [id number] 10:38:00* Test Item Value Reference Range Interpretation Comments SODIUM (BEAKER) (test code = 381) 135 meq/L 136-145 L POTASSIUM (BEAKER) (test code = 379) 3.6 meq/L 3.5-5.1 CHLORIDE (BEAKER) (test code = 382) 105 meq/L 98-107 CO2 (BEAKER) (test code = 355) 16 meq/L 22-29 L BLOOD UREA NITROGEN (BEAKER) (test code = 354) 6 mg/dL 7-21 L CREATININE (BEAKER) (test code = 358) 0.68 mg/dL 0.57-1.25 GLUCOSE RANDOM (BEAKER) (test code = 652) 79 mg/dL 70-105 CALCIUM (BEAKER) (test code = 697) 9.3 mg/dL 8.4-10.2 EGFR (BEAKER) (test code = 1092) 100 mL/min/1.73 sq m ESTIMATED GFR IS NOT ACCURATE CREATININE CLEARANCE IN PREDICTING GLOMERULAR FILTRATION RATE. ESTIMATED GFR IS NOT APPLICABLE FOR DIALYSIS PATIENTS. CBC W/PLT COUNT & AUTO [id number] 08:46:00* Test Item Value Reference Range Interpretation Comments WHITE BLOOD CELL COUNT (BEAKER) (test code = 775) 9.7 K/ L 3.5- 10.5 RED BLOOD CELL COUNT (BEAKER) (test code = 761) 4.19 M/ L 3.93-5 .22 HEMOGLOBIN (BEAKER) (test code = 410) 12.6 GM/DL 11.2-15.7 HEMATOCRIT (BEAKER) (test code = 411) 38.1 % 34.1-44.9 MEAN CORPUSCULAR VOLUME (BEAKER) (test code = 753) 90.9 fL 79. 4-94.8 MEAN CORPUSCULAR HEMOGLOBIN (BEAKER) (test code = 751) 30.1 pg 25.6-32.2 MEAN CORPUSCULAR HEMOGLOBIN CONC (BEAKER) (test code = 752) 33.1 GM/DL 32.2-35.5 RED CELL DISTRIBUTION WIDTH (BEAKER) (test code = 412) 11.6 % 11.7-14.4 L PLATELET COUNT (BEAKER) (test code = 756) 352 K/CU MM 150-450 MEAN PLATELET VOLUME (BEAKER) (test code = 754) 9.8 fL 9.4-12 .3 NUCLEATED RED BLOOD CELLS (BEAKER) (test code = 413) 0 /100 WBC 0 -0 NEUTROPHILS RELATIVE PERCENT (BEAKER) (test code = 429) 67 % LYMPHOCYTES RELATIVE PERCENT (BEAKER) (test code = 430) 27 % MONOCYTES RELATIVE PERCENT (BEAKER) (test code = 431) 5 % EOSINOPHILS RELATIVE PERCENT (BEAKER) (test code = 432) 0 % BASOPHILS RELATIVE PERCENT (BEAKER) (test code = 437) 0 % NEUTROPHILS ABSOLUTE COUNT (BEAKER) (test code = 670) 6.50 K/ L 1.56-6.13 H LYMPHOCYTES ABSOLUTE COUNT (BEAKER) (test code = 414) 2.57 K/ L 1.18-3.74 MONOCYTES ABSOLUTE COUNT (BEAKER) (test code = 415) 0.51 K/ L 0. 24-0.36 H EOSINOPHILS ABSOLUTE COUNT (BEAKER) (test code = 416) 0.04 K/ L 0.04-0.36 BASOPHILS ABSOLUTE COUNT (BEAKER) (test code = 417) 0.04 K/ L 0. 01-0.08 IMMATURE GRANULOCYTES-RELATIVE PERCENT (BEAKER) (test code = 2801) 0 % 0-1
--- OUTSIDE RECORDS SUMMARY | 2019-12-11 15:20 | XMS REPORT | Clinical Summary ---
Author Author [facility] Organization 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 [...]
--- OUTSIDE RECORDS SUMMARY | 2019-12-11 15:20 | XMS REPORT | Clinical Summary ---
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
--- OUTSIDE RECORDS SUMMARY | 2019-12-11 15:21 | XMS REPORT | Continuity of Care Document ---
Author Author [facility] t Organization [facility] Address [address] [place] [address] Phone Unavailable Care Team Providers Care Linux Systems Analyst Name Role Phone SAMEERA FRAGA, MD Js SLAUGHTER PCP RALEIGH LAGUNAS Attphys Unavailable ENRIKE DOHERTY Attphys Unavailable RALEIGH LAGUNAS Admphys Unavailable Payers Payer Name Policy Type Policy Number Effective Date Expiration Date S [facility] [id number] 2011 00:00:00 [facility] Problems Condition Name Condition Details Condition Category Status Onset Date Resolution Date Last Treatment Date Treating Clinician Comments Source Chronic pelvic pain in female Chronic pelvic pain in female Disease Active 2018-09-14 00:00:00 [facility] Endometriosis Endometriosis Disease Active 2018-09-14 00:00:00 [facility] Cancer of pelvic peritoneum Cancer of pelvic [...] 00:00:00 [facility] Seizure Seizure Problem Active [facility] Abdominal pain Problem Active [facility] Urinary retention Urinary retention Disease Active [facility] Allergies, Adverse Reactions, Alerts Allergy Name Allergy Type Status Severity Reaction(s) Onset Date Inacti ve Date Treating Clinician Comments Source Tramadol Propensity to adverse reactions Active Severe 2019-11 00:00:00 [facility] Methylprednisolone Allergy to substance Active Mild HIVES 00:00:00 [facility] Cephalexin Allergy to substance Active Severe 2019-12-06 00:00:00 [facility] Sulfamethoxazole Allergy to substance Active Severe 2019-12-06 00: 00:00 [facility] Trimethoprim Allergy to substance Active Severe 2019-12-06 00:00:0 0 [facility] methylprednisolone acetate DA Active MO 2018-06-10 00:00:0 0 [facility] Sulfa (Sulfonamide Antibiotics) DA Active SV 2018-06-10 00 :00:00 [facility] cephalexin DA Active SV 2018-06-10 00:00:00 [facility] sulfamethoxazole DA Active MO 2018-06-10 00:00:00 [facility] trimethoprim DA Active MO 2018-06-10 00:00:00 [facility] Sulfamethoxazole-Trimethoprim Propensity to adverse reactions to dr cinthia Active 2018-06-10 00:00:[address] [facility] Cephalexin Propensity to adverse reactions to drug Active 2018-06-10 00:00:00 [facility] Corticosteroids (Glucocorticoids) Propensity to adverse reac tions to drug Active 2018-06-10 00:00:00 [facility] Sulfamethoxazole-Trimethoprim Propensity to adverse reactions Active Swelling 2018-06-05 00:00:00 [facility] Cephalosporins Propensity to adverse reactions Active Swelling 2018-06-05 00:00:00 [facility] Corticosteroids (Glucocorticoids) Propensity to adverse reactions A ctive Hives, Rash 2018-06-05 00:00:00 [facility] methylprednisolone acetate DA Active MO 2016-04-14 00:00:0 0 [facility] Sulfa (Sulfonamide Antibiotics) DA Active SV 2016-04-14 00 :00:00 [facility] cephalexin DA Active SV 2016-04-14 00:00:00 [facility] sulfamethoxazole DA Active MO 2016-04-14 00:00:00 [facility] trimethoprim DA Active MO 2016-04-14 00:00:00 [facility] Cephalexin Propensity to adverse reactions to drug Active Swelling 2015-05-23 00:00:00 Tongue swelling [facility] Methylprednisolone Propensity to adverse reactions to drug Active Hives, Rash 2015-05-23 00:00:00 [facility] Sulfamethoxazole-Trimethoprim Propensity to adverse reactions to dr cinthia Active Swelling 2015-05-23 00:00:00 Tongue swelling [place] [facility] Family History Family Member Diagnosis Comments Start Date Stop Date Source Natural father Asthma [facility] Natural father Gout [facility] Maternal grandfather Diabetes [place] [facility] Maternal grandfather Kidney cancer [place] [facility] Maternal grandfather Skin cancer [place] [facility] Maternal grandfather Stroke [place] [facility] Maternal grandfather Kidney cancer [facility] Maternal grandfather Skin cancer [facility] Maternal grandmother Diabetes [place] [facility] Natural mother Scoliosis [facility] Maternal aunt Cervical cancer [place] Paternal grandfather Colon cancer [facility] Paternal grandfather Colon cancer [facility] Other Cervical cancer [facility] alth Social History Social Habit Start Date Stop Date Quantity Comments Source History SDOH Alcohol Std Drinks [facility] History SDOH Alcohol Binge [facility] Sex Assigned At [facility] Alcohol intake 2018-10-12 00:00:00 2018-10-12 00:00:00 Lifetime non-drinker (finding) [facility] History SDOH Alcohol Frequency 2018-09-14 00:00:00 2018-09-14 00:00:0 0 1 [facility] Tobacco use and exposure 2018-08-05 00:00:00 2018-08-05 00:00:00 [facility] Smoking Status Start Date Stop Date Source Never smoker [facility] Medications Ordered Medication Name Filled Medication Name Start Date Stop Da te Current Medication? Ordering Clinician Indication Dosage Frequency Signature (SIG) Comments Components Source Hyoscyamine Sulfate (Levsin-Sl) 0.125 Mg TAB.SUBL Hyos cyamine Sulfate (Levsin- Sl) 0.125 Mg TAB.SUBL 2019-12-07 12:54:00 Yes .125 Every 4 Hours as needed for Abdominal Pain [facility] Lubiprostone (Amitiza) 24 Mcg CAPSULE Lubiprostone (Amitiza) 24 Mcg CAPSULE 2019-12-07 12:54:00 Yes 24 Twice Daily With M eals [facility] Meclizine Hcl Meclizine Hcl 2019-12-07 12:54:00 Yes 12.5 Every 6 Hours as needed for Dizziness [facility] Pantoprazole Sodium (Protonix) 40 Mg TABLET. Pantopr azole Sodium (Protonix) 40 Mg TABLET. 2019-12-07 12:54:00 Yes 40 Before [place] kfast [facility] Ondansetron Hcl (Zofran*) 4 Mg TABLET Ondansetron Hcl (Zofra n*) 4 Mg TABLET 2019-05-08 15:35:00 Yes 4 Every 6 Hours as n eeded for Nausea [facility] Levetiracetam (Keppra) 500 Mg/5 Ml VIAL Levetiracetam (Keppr a) 500 Mg/5 Ml VIAL 2019-05-08 15:33:00 2019-12-06 00:00:00 No 500 Twice A Day [facility] L-Norgest&E Estradiol-E Estrad (SEASONIQUE) 0.15 mg-30 mcg (84)/10 mcg (7) 3MPk 2018-10-12 18:56:09 Yes 1{tbl} QD Take 1 tablet by mouth daily Skips placebo dose . [facility] amitriptyline (ELAVIL) 100 mg tablet 2018-10-12 18:56:08 Ye s 100mg Take 100 mg by mouth at bedtime nightly. [facility] Blue-Sod Exqt-DhQve-Lcu (URIBEL) 118-10-40.8-36 mg ca p 2018-10-12 18:56:03 Yes 1{tbl} QD Take 1 tablet by mouth daily. [facility] ergocalciferol (VITAMIN D2) 50,000 unit capsule 2018-09-14 12:39 :11 Yes [id number] Take 50,000 Units by mouth weekly. [facility] lidocaine 5 % Gel 2018-09-14 12:39:11 Yes Apply to affected area. [facility] pregabalin (LYRICA) 100 mg capsule 2018-09-14 12:21:32 Yes 100mg Q.5D Take 100 mg by mouth 2 times daily. [facility] cholecalciferol, vitamin D3, (VITAMIN D3) 10,000 units [...] 6 (six) hours as needed for Pain. [facility] amitriptyline (ELAVIL) 100 MG tablet 2018-06-05 08:03:41 Ye s 100mg QD Take 100 mg by mouth nightly. [facility] methen-mBorisblue-s.eshd-ryeib-nnm (URIBEL) 118-10-40.8-36 mg Ca p 2018-06-05 08:03:41 Yes Take by mouth. [facility] pregabalin (LYRICA) 300 MG capsule 2018-06-05 08:03:41 Yes 300mg Q.5D Take 300 mg by mouth 2 (two) times daily. [facility] L-norgest/e.estradiol-e.estrad (CAMRESE LO ORAL) 2018-06-05 08:03:41 Yes Take by mouth. [facility] diazePAM (VALIUM) 10 MG tablet 2018-06-05 08:03:41 Yes 10mg Take 10 mg by mouth every 6 (six) hours as needed for Anxiety Vaginal suppository . [facility] lidocaine (XYLOCAINE) 5% ointment 2018-04-08 00:00:00 Ye s 1{application} Apply 1 application topically to affected area(s) as n eeded. [facility] HYDROcodone-acetaminophen (NORCO) 10 mg-325 mg per tablet 2015-05-18 00:00:00 Yes 1{tbl} Take 1-2 tablets by mouth every 6 (six) hours as needed. [facility] Amitriptyline Hcl Amitriptyline Hcl Yes 100 Bedt ofe [facility] Buprenorphine Hcl/Naloxone Hcl (Buprenorp-Nalox 8-2 Mg Sl Film) 1 Each FILM Buprenorphine Hcl/Naloxone Hcl (Buprenorp-Nalox 8-2 Mg Sl Film) 1 Each FILM Yes Daily [facility] I-Xcdzoaj-Ngs Estr/Ethin Estra (Seasoniq ue 0.15-0.03-0.01 Tab) 1 Each TBDSPK.3MO W-Qpwquvg-Ycy Estr/Ethin Estra (Seasoniq ue 0.15-0.03-0.01 Tab) 1 Each TBDSPK.3MO Yes [facility] Metronidazole (Flagyl) 250 Mg TABLET Metronidazole (Flagyl) 250 Mg TABLET Yes 500 Three Times A Day [facility] Mth/Me Blue/Sod Phos/Phen/Hyos (Uribel Capsule) 1 Each CAPSULE Mth/Me Blue/Sod Phos/Phen/Hyos (Uribel Capsule) 1 Each CAPSULE Yes 1 Twice A Day [facility] Pregabalin (Lyrica) 100 Mg CAPSULE Pregabalin (Lyrica) 100 Mg CAPSULE Yes 100 Three Times A Day [facility] Hydrocodone Bit/Acetaminophen (Hydrocodon-Acetaminophn 10-325) 1 Each TABLET Hydrocodone Bit/Acetaminophen (Hydrocodon-Acetaminophn 10-325) 1 Each TABLET 2019-12-06 00:00:00 No [facility] Amitriptyline Hcl Amitriptyline Hcl 2019-05-06 00:00:00 No 100 Daily [facility] Hydrocodone Bit/Acetaminophen ([place] 10-325 Tablet) 1 Each TABLET Hydrocodone Bit/Acetaminophen ([place] 10-325 Tablet) 1 Each TABLET 2019-05-06 00:00:00 No 1 Every 4 Hours as needed for Pain [facility] Methen/Barbara Alk/Blue/Phen Sa (Urelle Tablet) 1 Each T AB Methen/Barbara Alk/Blue/Phen Sa (Urelle Tablet) 1 Each TAB 2019-05-06 00:00:00 No 1 Four Times Daily [facility] Acetaminophen With Codeine (Tylenol With Codeine #3 Ta blet) 1 Each TABLET Acetaminophen With Codeine (Tylenol With Codeine #3 Tablet) 1 Each TABLET 2016-08-05 00:00:00 No 300 [facility] Escitalopram Oxalate (Lexapro) 10 Mg TABLET Escitalopr am Oxalate (Lexapro) 10 Mg TABLET 2016-08-05 00:00:00 No 20 Daily [facility] Diazepam (Valium) 10 Mg TABLET Diazepam (Valium) 10 Mg TABLET 2015-03-07 00:00:00 No 10 As Needed [facility] V-Grkmkfc-Pya Estr/Ethin Estra (Seasoniq ue 0.15-0.03-0.01 Tab) 1 Each TBDSPK.3MO O-Xkxtanm-Ows Estr/Ethin Estra (Seasoniq ue 0.15-0.03-0.01 Tab) 1 Each TBDSPK.3MO 2012-01-13 00:00:00 No 1 Daily [facility] Vital Signs Vital Name Observation Time Observation Value Comments Source Body Temperature 2019-12-08 17:03:00 97.4 [degF] [facility] BMI (Body Mass Index) 2019-12-08 04:48:00 27.0 kg/m2 [facility] Weight 2019-12-08 04:41:00 147.38 [lb_av] [facility] Procedures Procedure Date / Time Performed Performing Clinician Paige e US Abdomen limited 2019-12-07 00:00:00 [facility] Computed tomography of brain without radiopaque contrast 2019-11 00:00:00 [facility] Computed tomography of abdomen and pelvis with contrast 00:00:00 [facility] Magnetic resonance imaging of brain without contrast 2019-04 00:00:00 RANDY NICHOLSON [facility] Computed tomography of brain without radiopaque contrast 00:00:00 MIRIAM SANDERS [facility] Plan of Care Planned Activity Planned Date Details Comments Source Future Scheduled Test 2019-12-15 00:00:00 IMM Influenza Seas onal Dec to May (>/= 19 yrs) [code = IMM Influenza Seasonal Dec to May (>/= 19 yrs)] [facility] Future Scheduled Test 2019-10-15 00:00:00 INFLUENZA VACCINE [code = INFLUENZA VACCINE] [facility] Future Scheduled Test 2005 00:00:00 Screening for tom gnant neoplasm of cervix (procedure) [code = 046857150] [facility] Test 2005 00:00:00 Screening for tom gnant neoplasm of cervix (procedure) [code = 321888353] [facility] Instructions Abdominal Pain - Adult [facility] Instructions Chest Pain - Noncardiac [facility] Instructions Dizziness [facility] Encounters Start Date/Time End Date/Time Encounter Type Admission Type Attendi [facility] Care Department Encounter ID Source 2019-05-06 14:55:00 2019-05-08 17:27:00 Discharged Inpatient (obs) 1 JANNETH RALEIGH [facility] [id number] I [facility] 2018-07-15 00:00:00 2018-07-15 00:00:00 Outpatient [facility] [id number] [facility] 2018-06-10 11:41:21 2018-06-10 11:41:21 [place] [id number] [facility] Results Test Description Test Time Test Comments Results Result Comments Source Blood leukocytes automated count (number/volume) 2019-12-08 05:55:00 Test Item White Blood Count (test code = 6690-2) 8.09 4.8-10.8 [facility] count (number/volume)2019-12-08 05:55:00* Test Item Value Reference Range Interpretation Comments Red Blood Count (test code = 789-8) 4.10 3.6-5.1 [facility] measurement (moles/volume)2019-12-08 05:55:00* Test Item Value Reference Range Interpretation Comments Hemoglobin (test code = 36481-6) 11.9 12.0-16.0 [facility] Center[facility] blood hematocrit (volume fraction)2019-12-08 05:55:00* Test Item Value Reference Range Interpretation Comments Hematocrit (test code = 4544-3) 36.7 34.2-44.1 [facility] Center[facility] erythrocyte mean corpuscular cpndbh0547-37-54 05:55:00* Test Item Value Reference Range Interpretation Comments Mean Corpuscular Volume (test code = 787-2) 89.5 81-99 [facility] Center[facility] erythrocyte mean corpuscular hemoglobin (mass per erythrocyte)2019-12-08 05:55:00* Test Item Value Reference Range Interpretation Comments Mean Corpuscular Hemoglobin (test code = 785-6) 29.0 28-32 [facility] CenterAutom[facility] erythrocyte mean corpuscular hemoglobin concentration measurement (mass/volume)2019-12-08 05:55:00* Test Item Value Reference Range Interpretation Comments Mean Corpuscular Hemoglobin Concent (test code = 786-4) 32.4 31-35 [facility] CenterRDW SgzTc-Nvn1431-78-24 05:55:00* Test Item Value Reference Range Interpretation Comments Red Cell Distribution Width (test code = 77420-9) 11.7 11.7 -14.4 [facility] CenterAutom[facility] blood platelet count (count/volume)2019-12-08 05:55:00* Test Item Value Reference Range Interpretation Comments Platelet Count (test code = 777-3) 298 140-360 [facility] CenterAutom[facility] blood segmented neutrophil count as percentage of total zaedqvwabk2535-78-13 05:55:00* Test Item Value Reference Range Interpretation Comments Neutrophils (%) (Auto) (test code = 21654-8) 62.4 38.7-80.0 [facility] CenterAutomated blood lymphocyte count as percentage ot total vewweymztj6807-96-88 05:55:00* Test Item Value Reference Range Interpretation Comments Lymphocytes (%) (Auto) (test code = 736-9) 28.9 18.0-39.1 [facility] Center[facility] blood monocyte count as percentage of total iyyvfpblvo5449-49-90 05:55:00* Test Item Value Reference Range Interpretation Comments Monocytes (%) (Auto) (test code = 5905-5) 6.8 4.4-11.3 [facility] CenterAutunc healthed blood eosinophil count as percentage of total pcvsffvqha1257-80-66 05:55:00* Test Item Value Reference Range Interpretation Comments Eosinophils (%) (Auto) (test code = 713-8) 1.2 0.0-6.0 [facility] CenterAutunc healthed blood basophil count as percentage of total bbgmyqdrgg8344-28-12 05:55:00* Test Item Value Reference Range Interpretation Comments Basophils (%) (Auto) (test code = 706-2) 0.5 0.0-1.0 [facility] CenterFluoroscopic procedure less than one hour lbtnxhrf2276-33-60 05:55:00* Test Item Value Reference Range Interpretation Comments IM GRANULOCYTES % (test code = IM GRANULOCYTES %) 0.2 0.0- 1.0 [facility] CenterAutom[facility] blood neutrophil count 2019-12-08 05:55:00* Test Item Value Reference Range Interpretation Comments Neutrophils # (Auto) (test code = 751-8) 5.0 2.1-6.9 [facility] CenterBlood lymphocytes count (number/volume) 2019-12-08 05:55:00* Test Item Value Reference Range Interpretation Comments Lymphocytes # (Auto) (test code = 94162-7) 2.3 1.0-3.2 [facility] CenterBlood monocytes automated count (number/volume)2019-12-08 05:55:00* Test Item Value Reference Range Interpretation Comments Monocytes # (Auto) (test code = 742-7) 0.6 0.2-0.8 [facility] CenterAutomated blood eosinophil count 2019-12-08 05:55:00* Test Item Value Reference Range Interpretation Comments Eosinophils # (Auto) (test code = 711-2) 0.1 0.0-0.4 [facility] CenterAutomated blood basophil count (count/volume)2019-12-08 05:55:00* Test Item Value Reference Range Interpretation Comments Basophils # (Auto) (test code = 704-7) 0.0 0.0-0.1 [facility] CenterFluoroscopic procedure less than one hour citlyusc9879-21-20 05:55:00* Test Item Value Reference Range Interpretation Comments Absolute Immature Granulocyte (auto (janelle t code = Absolute Immature Granulocyte (auto) 0.02 0-0.1 [facility] sodium measurement (moles/volume)2019-12-08 05:55:00* Test Item Value Reference Range Interpretation Comments Sodium Level (test code = 2951-2) 140 136-145 [facility] Hospital[facility]um or plasma potassium measurement (moles/volume)2019-12-08 05:55:00* Test Item Value Reference Range Interpretation Comments Potassium Level (test code = 2823-3) 3.9 3.5-5.1 [facility] Hospital[facility] or plasma chloride measurement (moles/volume)2019-12-08 05:55:00* Test Item Value Reference Range Interpretation Comments Chloride Level (test code = 2075-0) 111 98-107 [facility] Hospitaler[facility] or plasma carbon dioxide, total measurement (moles/volume)2019-12-08 05:55:00* Test Item Value Reference Range Interpretation Comments Carbon Dioxide Level (test code = 2028-9) 19 22-29 [facility] Hospital[facility] or plasma anion ujx1599-56-51 05:55:00* Test Item Value Reference Range Interpretation Comments Anion Gap (test code = 24313-4) 13.9 8-16 [facility] or plasma urea nitrogen measurement (mass/volume)2019-12-08 05:55:00* Test Item Value Reference Range Interpretation Comments Blood Urea Nitrogen (test code = 3094-0) 10 7-26 [facility] Hospital[facility] or plasma creatinine measurement (mass/volume)2019-12-08 05:55:00* Test Item Value Reference Range Interpretation Comments Creatinine (test code = 2160-0) 0.66 0.57-1.11 [facility] Hospital[facility] or plasma urea nitrogen/creatinine mass wosbr1722-73-73 05:55:00* Test Item Value Reference Range Interpretation Comments BUN/Creatinine Ratio (test code = 3097-3) 15 6-25 [facility] CenterEstimated glomerular filtration rate (GFR) mojnsjbdovpnd6563-24-38 05:55:00* Test Item Value Reference Range Interpretation Comments Estimat Glomerular Filtration Rate (test code = 995131710) > 60 >60 Ranges were taken from the National Kidney Disease Education Program and the [facility] Kid[facility] Foundation literature.Reference ranges:60 or greater: Faarov80-57 ( for 3 consecutive months): Chronic kidney disease 15 or less: Kidney failureSaint Camillus Medical CenterGlucose wvpkycvzewy2403-52-74 05:55:00* Test Item Value Reference Range Interpretation Comments Glucose Level (test code = ZSD8755) 68 74-118 [facility] Hospital[facility] or plasma calcium measurement (mass/volume)2019-12-08 05:55:00* Test Item Value Reference Range Interpretation Comments Calcium Level (test code = 66363-3) 7.8 8.4-10.2 [facility] Hospitalerum or plasma magnesium measurement (mass/volume)2019-12-08 05:55:00* Test Item Value Reference Range Interpretation Comments Magnesium Level (test code = 19438-4) 2.0 1.3-2.1 [facility] Hospitalerum or plasma total bilirubin measurement (mass/volume)2019-12-08 05:55:00* Test Item Value Reference Range Interpretation Comments Total Bilirubin (test code = 1975-2) 0.3 0.2-1.2 [facility] CenterFluoroscopic procedure less than one hour bwnnvyfg5104-34-02 05:55:00* Test Item Value Reference Range Interpretation Comments Aspartate Amino Transf (AST/SGOT) (test code = Aspartate Amino Transf (AST/SGOT)) 17 5-34 [facility] Hospitalerum or plasma alanine aminotransferase measurement (enzymatic activity/volume)2019-12-08 05:55:00* Test Item Value Reference Range Interpretation Comments Alanine Aminotransferase (ALT/SGPT) (test code = 1742-6) 12 0-55 [facility] Hospitaler[facility] or plasma protein measurement (mass/volume)2019-12-08 05:55:00* Test Item Value Reference Range Interpretation Comments Total Protein (test code = 2885-2) 5.9 6.5-8.1 [facility] Hospitaler[facility] or plasma albumin measurement (mass/volume)2019-12-08 05:55:00* Test Item Value Reference Range Interpretation Comments Albumin (test code = 1751-7) 3.6 3.5-5.0 [facility] CenterPlasma globulin measurement (mass/volume) 2019-12-08 05:55:00* Test Item Value Reference Range Interpretation Comments Globulin (test code = 41795-3) 2.3 2.3-3.5 [facility] Hospital[facility] or plasma albumin/globulin mass ghydq1281-15-52 05:55:00* Test Item Value Reference Range Interpretation Comments Albumin/Globulin Ratio (test code = 1759-0) 1.6 0.8-2.0 [facility] Hospital[facility] or plasma alkaline phosphatase measurement (enzymatic activity/volume)2019-12-08 05:55:00* Test Item Value Reference Range Interpretation Comments Alkaline Phosphatase (test code = 6768-6) 55 40-150 [facility] CenterHEPTOBILIARY W LJSRP6341-62-04 20:11:00 [facility] [address] [place] [address] Patient Name: JOHNATHAN GAUTHIER MR #: [id number] : 1985 Age/Sex: 34/F Req #: [id number] Adm Physician: RALEIGH LAGUNAS MD Ordered by: YENNIFER BANKS MD Report #: [id number] Location[facility] Room/Bed: [facility] Procedure: [id number] NM/HEPTO BILIARY W PHARM Exam Date: 12/07/19 [...] Troponin I measurement by highly sensitive enzyme pggasurwwsy2803-94-05 16:00:00* Test Item Value Reference Range Interpretation Comments Troponin I (test code = 02732-1) 0.010 0-0.300 [facility] WJ8859-93-28 15:47:00 [facility] [address] [address] Patient Name: JOHNATHAN GAUTHIER MR #: [id number] : 1985 Age/Sex: 34/F Req #: [id number] Adm Physician: RALEIGH LAGUNAS MD Ordered by: Randy Nicholson CREDIT REVIEW ANALYST Report #: [id number] Location: [facility] Room/Bed: [facility] Procedure: [id number] CT/CT ADDY NGUYEN WO Exam Date: 12/07/19 [...] COPY TO: RANDY NICHOLSON NP US ABDOMEN DCCXOJT0693-13-42 10:52:00 [place] [address] Patient Name: JOHNATHAN GAUTHIER MR #: [id number] : 1985 Age/Sex: 34/F Req #: [id number] Adm Physician: RALEIGH LAGUNAS MD Ordered by: Randy Nicholson CREDIT REVIEW ANALYST Report #: [id number] Location: [facility] Room/Bed: [facility] Procedure: [id number] US/US AB PHILIPPE RAYA Exam Date: 12/07/19 [...] Level (test code = 2571-8) 92 0-149 [facility] or plasma cholesterol measurement (mass/volume)2019-12-07 05:12:00* Test Item Value Reference Range Interpretation Comments Cholesterol Level (test code = 2093-3) 167 0-199 Less than 200 mg/dL Low Pqrg410 - 239 mg/dL Borderline Ghhf536 m g/dl and greater High Risk [facility] Hospitalerum or plasma cholesterol in LDL measurement (mass/volume) 2019-12-07 05:12:00* Test Item Value Reference Range Interpretation Comments LDL Cholesterol (test code = 2089-1) 98 60-130 [place] [facility] plasma cholesterol in HDL measurement (mass/volume)2019-12-07 05:12:00* Test Item Value Reference Range Interpretation Comments HDL Cholesterol (test code = 2085-9) 51 40-60 [place] [facility]er[facility] or plasma total cholesterol/cholesterol in HDL mass wyqrv6309-46-42 05:12:00* Test Item Value Reference Range Interpretation Comments Cholesterol/HDL Ratio (test code = 9830-1) 3.3 3.0-3.6 [place] [facility] Hospitalerum or plasma thyrotropin measurement by detection limit <= 0.005 miu/l (units/volume)2019-12-07 05:12:00* Test Item Value Reference Range Interpretation Comments Thyroid Stimulating Hormone (TSH) (test code = 47426-8) 3.285 0.350-4.940 [facility] CenterFluoroscopic procedure less than one hour vqufwwcg2164-33-08 18:45:00* Test Item Value Reference Range Interpretation Comments Coronavirus (PCR) (test code = Coronavirus (PCR)) NOT DETECTED NOTD ETECTED SARS-CoV-2 PCRHologic Aptima SARS-CoV-2 assay is a nucleic amplification test in tended for the qualitative detection of RNA from SARS-CoV-2 from nasopharyngeal (CREDIT REVIEW ANALYST) specimens. It is used under Emergency Use [...] [facility] [id number], Austen joshi MD, PhDSaint Camillus Medical CenterCHEST SINGLE (PORTABLE) 2019-12-06 16:46:00 [place] [address] Patient Name: JOHNATHAN GAUTHIER MR #: [id number] : 1985 Age/Sex: 34/F Req #: [id number] Adm Physician: Ordered by: YURY TREVIÑO DO Report #: [id number] Location: ER Room/Bed: Procedure: [id number] DX/REBECCA ST SINGLE (PORTABLE) Exam Date: 12/06/19 [...] COPY TO: YURY TREVIÑO DO CT ABDOMEN/PELVIS Y0628-37-88 16:28:00 [place] [address] Patient Name: JOHNATHAN GAUTHIER MR #: [id number] : 1985 Age/Sex: 34/F Req #: [id number] Adm Physician: Ordered by: YURY TREVIÑO DO Report #: [id number] Location: ER Room/Bed: Procedure: [id number] CT/CT ABDOMEN/PELVIS W Exam Date: 12/06/19 Exam [...] COPY TO: YURY TREVIÑO DO Urine color mdytfmkgvpznq3503-41-95 15:38:00* Test Item Value Reference Range Interpretation Comments Urine Color (test code = 5778-6) GREEN YELLOW [facility] CenterUrine srijmch6624-41-25 15:38:00* Test Item Value Reference Range Interpretation Comments Urine Clarity (test code = 79385-6) SL CLOUDY CLEAR [place] [facility] Hospitalpecific gravity of Urine by Test strip 2019-12-06 15:38:00* Test Item Value Reference Range Interpretation Comments Urine Specific Arp (test code = 5811-5) 1.020 1.010-1.02 5 [facility] CenterUrine pH measurement by automated test hgkzw2924-08-96 15:38:00* Test Item Value Reference Range Interpretation Comments Urine pH (test code = 23751-1) 6 5-7 [facility] CenterUrine leukocyte esterase detection by kqxozldt0341-81-19 15:38:00* Test Item Value Reference Range Interpretation Comments Urine Leukocyte Esterase (test code = 5799-2) NEGATIVE NEGATIVE [facility] CenterUrine nitrite dbiklrgrk5974-24-51 15:38:00* Test Item Value Reference Range Interpretation Comments Urine Nitrite (test code = 12045-8) NEGATIVE NEGATIVE [facility] CenterUrine protein measurement by test strip (mass/volume)2019-12-06 15:38:00* Test Item Value Reference Range Interpretation Comments Urine Protein (test code = 5804-0) NEGATIVE NEGATIVE [facility] CenterUrine glucose otsaqbxwt3737-76-07 15:38:00* Test Item Value Reference Range Interpretation Comments Urine Glucose (UA) (test code = 2349-9) NEGATIVE NEGATIVE [facility] CenterUrine ketones detection by automated test nwqbx1586-43-33 15:38:00* Test Item Value Reference Range Interpretation Comments Urine Ketones (test code = 70700-9) NEGATIVE NEGATIVE [facility] CenterUrine urobilinogen measurement by test strip (mass/volume)2019-12-06 15:38:00* Test Item Value Reference Range Interpretation Comments Urine Urobilinogen (test code = 60937-9) 0.2 0.2-1 [facility] CenterUrine total bilirubin measurement (mass/volume)2019-12-06 15:38:00* Test Item Value Reference Range Interpretation Comments Urine Bilirubin (test code = 1978-6) SMALL NEGATIVE [facility] CenterUrine erythrocytes jmlbyzfjc0969-07-58 15:38:00* Test Item Value Reference Range Interpretation Comments Urine Blood (test code = 53074-8) TRACE NEGATIVE [facility] CenterAutomated urine sediment leukocyte count by microscopy (number/high power field)2019-12-06 15:38:00* Test Item Value Reference Range Interpretation Comments Urine WBC (test code = 5821-4) NONE 0-5 [facility] CenterErythrocytes detection in urine sediment by light vouyzvbgwy1058-51-03 15:38:00* Test Item Value Reference Range Interpretation Comments Urine RBC (test code = 59998-9) 0-5 0-5 [facility] CenterBacteria detection in urine sediment by light copxjljkqu4091-29-14 15:38:00* Test Item Value Reference Range Interpretation Comments Urine Bacteria (test code = 35293-4) NONE NONE [facility] CenterEpithelial cells detection in urine sediment by light owaejsnuew5335-26-33 15:38:00* Test Item Value Reference Range Interpretation Comments Urine Epithelial Cells (test code = 87656-9) FEW NONE [place] [facility] Hospitaler[facility] or plasma creatine kinase measurement (enzymatic activity/volume)2019-12-06 15:01:00* Test Item Value Reference Range Interpretation Comments Creatine Kinase (test code = 2157-6) 114 29-168 [place] [facility] Hospitalerum or plasma creatine kinase MB measurement (mass/volume)2019-12-06 15:01:00* Test Item Value Reference Range Interpretation Comments Creatine Kinase MB (test code = 48879-2) 0.80 0-5.0 [place] [facility] Hospitalerum or plasma lipase measurement (enzymatic activity/volume)2019-12-06 15:01:00* Test Item Value Reference Range Interpretation Comments Lipase (test code = 3040-3) 20 8-78 [place] [facility] Hospitalerum or plasma choriogonadotropin ( test) scmgshwog3780-05-60 15:01:00* Test Item Value Reference Range Interpretation Comments Human Chorionic Gonadotropin, Qual (test code = 2118-8) NEGATIVE NEGATIVE [facility] Hospitalodium Rpeon8692-17-21 07:34:00* Test Item Value Reference Range Interpretation Comments Sodium Level (test code = 2951-2) 140 136-145 [facility] CenterPotassium Trnbe8059-76-43 07:34:00* Test Item Value Reference Range Interpretation Comments Potassium Level (test code = 2823-3) 4.0 3.5-5.1 [facility] CenterChloride Zunsq6235-06-21 07:34:00* Test Item Value Reference Range Interpretation Comments Chloride Level (test code = 2075-0) 111 98-107 H [facility] CenterCarbon Dioxide Gpurs8198-34-89 07:34:00* Test Item Value Reference Range Interpretation Comments Carbon Dioxide Level (test code = 2028-9) 23 - [facility] CenterAnion Bwu3742-88-74 07:34:00* Test Item Value Reference Range Interpretation Comments Anion Gap (test code = 31865-3) 10.0 8-16 [facility] CenterBlood Urea Odwqbkov6513-40-12 07:34:00* Test Item Value Reference Range Interpretation Comments Blood Urea Nitrogen (test code = 3094-0) 10 7-26 [facility] CenterCreatinine2020-02-23 07:34:00* Test Item Value Reference Range Interpretation Comments Creatinine (test code = 2160-0) 0.74 0.57-1.11 [facility] CenterBUN/Creatinine Tqlqq2204-36-41 07:34:00* Test Item Value Reference Range Interpretation Comments BUN/Creatinine Ratio (test code = 3097-3) 14 6-25 [facility] CenterEstimat Glomerular Filtration Rate 2019-05-08 07:34:00* Test Item Value Reference Range Interpretation Comments Estimat Glomerular Filtration Rate (test code = 974866221) > 60 >60 Ranges were taken from the National Kidney Disease Education Program and the [facility] Kidney Foundation literature.Reference ranges:60 or greater: Yfbvxe82-62 ( for 3 consecutive months): Chronic kidney disease 15 or less: Kidney failureSaint Camillus Medical CenterGlucose Edbcs7620-03-36 07:34:00* Test Item Value Reference Range Interpretation Comments Glucose Level (test code = KJB1090) 93 74-118 [facility] CenterCalcium Qrkmm9528-22-75 07:34:00* Test Item Value Reference Range Interpretation Comments Calcium Level (test code = 35789-2) 8.6 8.4-10.2 [facility] CenterMagnesium Kzrxu5315-09-10 07:34:00* Test Item Value Reference Range Interpretation Comments Magnesium Level (test code = 63523-4) 2.1 1.3-2.1 [facility] CenterCreatine Kinase SV7092-78-20 13:57:00* Test Item Value Reference Range Interpretation Comments Creatine Kinase MB (test code = 63588-8) 0.30 0-5.0 [facility] CenterTroponin P5473-23-09 13:57:00* Test Item Value Reference Range Interpretation Comments Troponin I (test code = LRG8237) < 0.001 0-0.300 [facility] CenterMRI BRAIN UN3725-95-35 13:28:00 [facility] [address] [address] Patient Name: JOHNATHAN GAUTHIER MR #: [id number] : Age/Sex: 33/F Req #: [id number] Adm Physician: RALEIGH LAGUNAS MD Ordered by: Randy Nicholson CREDIT REVIEW ANALYST Report #: [id number] Location: MED/SURG3 Room/Bed: [facility] Procedure: 0222-0 001 MRI/MRI BRAIN WO [...] 1337 Tra nscribed By: JAZMIN on 05/07/19 7817 COPY TO: BHARAT,RANDY Stephen BRADEN Creatine Dhowdf5739-44-92 12:51:00* Test Item Value Reference Range Interpretation Comments Creatine Kinase (test code = 2157-6) 104 29-168 [facility] CenterThyroid Stimulating Hormone (TSH) 2019-05-07 04:00:00* Test Item Value Reference Range Interpretation Comments Thyroid Stimulating Hormone (TSH) (test code = 75702-0) 2.813 0.350-4.940 [facility] CenterTotal Bdnfvjwnk5656-52-67 03:52:00* Test Item Value Reference Range Interpretation Comments Total Bilirubin (test code = 1975-2) 0.2 0.2-1.2 [facility] CenterAspartate Amino Transf (AST/SGOT) 2019-05-07 03:52:00* Test Item Value Reference Range Interpretation Comments Aspartate Amino Transf (AST/SGOT) (test code = Aspartate Amino Transf (AST/SGOT)) 13 5-34 [facility] CenterAlanine Aminotransferase (ALT/SGPT) 2019-05-07 03:52:00* Test Item Value Reference Range Interpretation Comments Alanine Aminotransferase (ALT/SGPT) (test code = 1742-6) 12 0-55 [facility] CenterTotal Tnjkurf8278-70-73 03:52:00* Test Item Value Reference Range Interpretation Comments Total Protein (test code = 2885-2) 6.1 6.5-8.1 L [facility] CenterAlbumin2020-02-22 03:52:00* Test Item Value Reference Range Interpretation Comments Albumin (test code = 1751-7) 3.4 3.5-5.0 L [facility] CenterGlobulin2020-02-22 03:52:00* Test Item Value Reference Range Interpretation Comments Globulin (test code = 79733-4) 2.7 2.3-3.5 [facility] CenterAlbumin/Globulin Saraw6731-64-16 03:52:00 * Test Item Value Reference Range Interpretation Comments Albumin/Globulin Ratio (test code = 1759-0) 1.3 0.8-2.0 [facility] CenterAlkaline Czsqbmujpck7640-05-69 03:52:00* Test Item Value Reference Range Interpretation Comments Alkaline Phosphatase (test code = 6768-6) 49 40-150 [facility] CenterTriglycerides Enzln7648-56-12 03:52:00* Test Item Value Reference Range Interpretation Comments Triglycerides Level (test code = 2571-8) 96 0-149 [facility] CenterCholesterol Hbxjv1705-09-34 03:52:00* Test Item Value Reference Range Interpretation Comments Cholesterol Level (test code = 2093-3) 210 0-199 H Less than 200 mg/dL Low Jejg251 - 239 mg/dL Borderline Msig647 m g/dl and greater High Risk [facility] CenterLDL Spmbyudzalo2469-02-86 03:52:00* Test Item Value Reference Range Interpretation Comments LDL Cholesterol (test code = 2089-1) 132 60-130 H [facility] CenterHDL Dhtwhblusft8887-72-27 03:52:00* Test Item Value Reference Range Interpretation Comments HDL Cholesterol (test code = 2085-9) 59 40-60 [facility] CenterCholesterol/HDL Kjire3888-29-99 03:52:00 * Test Item Value Reference Range Interpretation Comments Cholesterol/HDL Ratio (test code = 9830-1) 3.6 3.0-3.6 [facility] CenterHemoglobin A1c Yrughhu9118-04-64 03:31:00 * Test Item Value Reference Range Interpretation Comments Hemoglobin A1c Percent (test code = Hemoglobin A1c Percent) 5.1 4.0-7.0 [facility] CenterWhite Blood Qptac2812-61-01 02:44:00* Test Item Value Reference Range Interpretation Comments White Blood Count (test code = 6690-2) 9.68 4.8-10.8 [facility] CenterRed Blood Nkpzd0721-34-25 02:44:00* Test Item Value Reference Range Interpretation Comments Red Blood Count (test code = 789-8) 3.92 3.6-5.1 [facility] CenterHemoglobin2020-02-22 02:44:00* Test Item Value Reference Range Interpretation Comments Hemoglobin (test code = 26767-6) 12.0 12.0-16.0 [facility] CenterHematocrit2020-02-22 02:44:00* Test Item Value Reference Range Interpretation Comments Hematocrit (test code = 4544-3) 36.2 34.2-44.1 [facility] CenterMean Corpuscular Ioatfr9554-95-13 02:44:00* Test Item Value Reference Range Interpretation Comments Mean Corpuscular Volume (test code = 787-2) 92.3 81-99 [facility] CenterMean Corpuscular Zxrrjncvsi5898-37-92 02:44:00* Test Item Value Reference Range Interpretation Comments Mean Corpuscular Hemoglobin (test code = 785-6) 30.6 28-32 [facility] CenterMean Corpuscular Hemoglobin Concent 2019-05-07 02:44:00* Test Item Value Reference Range Interpretation Comments Mean Corpuscular Hemoglobin Concent (test code = 786-4) 33.1 31-35 [facility] CenterRed Cell Distribution Grmzq2176-60-37 02:44:00* Test Item Value Reference Range Interpretation Comments Red Cell Distribution Width (test code = 45144-6) 12.9 11.7 -14.4 [facility] CenterPlatelet Bxhvq1147-85-58 02:44:00* Test Item Value Reference Range Interpretation Comments Platelet Count (test code = 777-3) 335 140-360 [facility] CenterNeutrophils (%) (Auto)2019-05-07 02:44:00 * Test Item Value Reference Range Interpretation Comments Neutrophils (%) (Auto) (test code = 84817-1) 64.9 38.7-80.0 [facility] CenterLymphocytes (%) (Auto)2019-05-07 02:44:00 * Test Item Value Reference Range Interpretation Comments Lymphocytes (%) (Auto) (test code = 736-9) 29.1 18.0-39.1 [facility] CenterMonocytes (%) (Auto)2019-05-07 02:44:00* Test Item Value Reference Range Interpretation Comments Monocytes (%) (Auto) (test code = 5905-5) 4.8 4.4-11.3 [facility] CenterEosinophils (%) (Auto)2019-05-07 02:44:00 * Test Item Value Reference Range Interpretation Comments Eosinophils (%) (Auto) (test code = 713-8) 0.5 0.0-6.0 [facility] CenterBasophils (%) (Auto)2019-05-07 02:44:00* Test Item Value Reference Range Interpretation Comments Basophils (%) (Auto) (test code = 706-2) 0.4 0.0-1.0 [facility] CenterIM GRANULOCYTES %2019-05-07 02:44:00* Test Item Value Reference Range Interpretation Comments IM GRANULOCYTES % (test code = IM GRANULOCYTES %) 0.3 0.0- 1.0 [facility] CenterNeutrophils # (Auto)2019-05-07 02:44:00* Test Item Value Reference Range Interpretation Comments Neutrophils # (Auto) (test code = 751-8) 6.3 2.1-6.9 [facility] CenterLymphocytes # (Auto)2019-05-07 02:44:00* Test Item Value Reference Range Interpretation Comments Lymphocytes # (Auto) (test code = 28909-5) 2.8 1.0-3.2 [facility] CenterMonocytes # (Auto)2019-05-07 02:44:00* Test Item Value Reference Range Interpretation Comments Monocytes # (Auto) (test code = 742-7) 0.5 0.2-0.8 [facility] CenterEosinophils # (Auto)2019-05-07 02:44:00* Test Item Value Reference Range Interpretation Comments Eosinophils # (Auto) (test code = 711-2) 0.1 0.0-0.4 [facility] CenterBasophils # (Auto)2019-05-07 02:44:00* Test Item Value Reference Range Interpretation Comments Basophils # (Auto) (test code = 704-7) 0.0 0.0-0.1 [facility] CenterAbsolute Immature Granulocyte (auto 2019-05-07 02:44:00* Test Item Value Reference Range Interpretation Comments Absolute Immature Granulocyte (auto (janelle t code = Absolute Immature Granulocyte (auto) 0.03 0-0.1 [facility] CenterFluoroscopic procedure less than one hour hzflatcj2990-79-00 01:33:00* Test Item Value Reference Range Interpretation Comments Hemoglobin A1c Percent (test code = Hemoglobin A1c Percent) 5.1 4.0-7.0 [facility] CenterAcetaminophen Uwtou3071-53-71 15:23:00* Test Item Value Reference Range Interpretation Comments Acetaminophen Level (test code = 53678-1) < 3.0 10-30 L [facility] CenterEthyl Alcohol Lqwtp8399-00-21 15:23:00* Test Item Value Reference Range Interpretation Comments Ethyl Alcohol Level (test code = 5643-2) < 10.0 0.0-10.0 [facility] Hospitalalicylates Sprka9762-54-77 15:23:00* Test Item Value Reference Range Interpretation Comments Salicylates Level (test code = 4024-6) < 5.0 0-30 [facility] CenterHuman Chorionic Gonadotropin, Qual 2019-05-06 15:18:00* Test Item Value Reference Range Interpretation Comments Human Chorionic Gonadotropin, Qual (test code = 2118-8) NEGATIVE NEGATIVE [facility] CenterUrine Jhlo9010-52-02 15:08:00* Test Item Value Reference Range Interpretation Comments Urine Test (test code = 2106-3) NEGATIVE NEGATIVE [facility] CenterUrine Cjjev6993-86-10 14:12:00* Test Item Value Reference Range Interpretation Comments Urine Color (test code = 5778-6) GREEN YELLOW H [facility] CenterUrine Ahgjkah4716-70-18 14:12:00* Test Item Value Reference Range Interpretation Comments Urine Clarity (test code = 22203-1) CLEAR CLEAR [facility] CenterUrine Specific Uezztbj7337-39-78 14:12:00 * Test Item Value Reference Range Interpretation Comments Urine Specific Arp (test code = 5811-5) 1.030 1.010-1.02 5 H [facility] CenterUrine gN6292-13-84 14:12:00* Test Item Value Reference Range Interpretation Comments Urine pH (test code = 03449-5) 6 5-7 [facility] CenterUrine Leukocyte Zxefacla0033-33-19 14:12:00* Test Item Value Reference Range Interpretation Comments Urine Leukocyte Esterase (test code = 5799-2) NEGATIVE NEGATIVE [facility] CenterUrine Siwkbqt2377-33-51 14:12:00* Test Item Value Reference Range Interpretation Comments Urine Nitrite (test code = 95570-9) NEGATIVE NEGATIVE [facility] CenterUrine Crxwlwh7271-92-03 14:12:00* Test Item Value Reference Range Interpretation Comments Urine Protein (test code = 5804-0) 1+ NEGATIVE H [facility] CenterUrine Glucose (UA)2019-05-06 14:12:00* Test Item Value Reference Range Interpretation Comments Urine Glucose (UA) (test code = 2349-9) NEGATIVE NEGATIVE [facility] CenterUrine Dlzlqxb3974-79-78 14:12:00* Test Item Value Reference Range Interpretation Comments Urine Ketones (test code = 01393-2) NEGATIVE NEGATIVE [facility] CenterUrine Opiates Uiatne2280-61-90 14:12:00* Test Item Value Reference Range Interpretation Comments Urine Opiates Screen (test code = 38729-7) NEGATIVE NEGATIVE ALL TESTS PERFORMED MANUALLY ON [employer] TOX/SEE TESTSaint Camillus Medical CenterUrine Barbiturates Ggtaht3180-32-19 14:12:00* Test Item Value Reference Range Interpretation Comments Urine Barbiturates Screen (test code = 699210083) NEGATIVE NEGA TIVE [facility] CenterUrine Phencyclidine Vqjeod7255-79-18 14:12:00* Test Item Value Reference Range Interpretation Comments Urine Phencyclidine Screen (test code = 28554-5) NEGATIVE NEGAT JERROD [facility] CenterUrine Amphetamines Nipdkb1645-81-70 14:12:00* Test Item Value Reference Range Interpretation Comments Urine Amphetamines Screen (test code = 58633-7) NEGATIVE NEGATI VE [facility] CenterUrine Methamphetamines Jswgke3098-68-16 14:12:00* Test Item Value Reference Range Interpretation Comments Urine Methamphetamines Screen (test code = Urine Metha mphetamines Screen) NEGATIVE NEGATIVE [facility] CenterUrine Benzodiazepines Ssjfdh7075-95-65 14:12:00* Test Item Value Reference Range Interpretation Comments Urine Benzodiazepines Screen (test code = 64032-3) NEGATIVE NEG ATIVE [facility] CenterUrine Cocaine Wsxtfx6411-64-79 14:12:00* Test Item Value Reference Range Interpretation Comments Urine Cocaine Screen (test code = 3398-5) NEGATIVE NEGATIVE [facility] CenterUrine Cannabinoids Mompdi3274-51-03 14:12:00* Test Item Value Reference Range Interpretation Comments Urine Cannabinoids Screen (test code = 59532-4) NEGATIVE NEGATI VE THESE RESULTS ARE FOR MEDICAL TREATMENT ONLYTHIS REPORT CONTAINS UNCONFIR MED SCREENING RESULTS*POSITIVE RESULTS WILL BE CONFIRMED BY REFERENCE LAB UPON R EQUEST CUT-OFFDRUG CLASS CONCENTRATION ng/mLAmphetamines 1000Methamphetamines 1000Cocaine 300Opiate 300Phencyc lidine 25Cannabinoid 50Barbiturates 300Benzodiazepine 300Methadone 300[facility] HospitalUrine Methadone Xkxakr1958-97-28 14:12:00* Test Item Value Reference Range Interpretation Comments Urine Methadone Screen (test code = 88616-5) NEGATIVE NEGATIVE THESE RESULTS ARE FOR MEDICAL TREATMENT ONLYTHIS REPORT CONTAINS UNCONFIR MED SCREENING RESULTS*POSITIVE RESULTS WILL BE CONFIRMED BY REFERENCE LAB UPON R EQUEST CUT-OFFDRUG CLASS CONCENTRATION ng/mLAmphetamines 1000Methamphetamines 1000Cocaine Metabolite 300Opiate 300Phencyc lidine 25Cannabinoid 50Barbiturates 300Benzodiazepine 300Methadone 300[facility] HospitalUrine Bajlqulyvhvo7744-02-55 14:12:00* Test Item Value Reference Range Interpretation Comments Urine Urobilinogen (test code = 21006-5) 0.2 0.2-1 [facility] CenterUrine Eshsxdwgw9576-59-97 14:12:00* Test Item Value Reference Range Interpretation Comments Urine Bilirubin (test code = 1978-6) MODERATE NEGATIVE [facility] CenterUrine Jujay5773-00-17 14:12:00* Test Item Value Reference Range Interpretation Comments Urine Blood (test code = 55523-6) 1+ NEGATIVE H [facility] CenterUrine UDP4682-39-02 14:12:00* Test Item Value Reference Range Interpretation Comments Urine WBC (test code = 5821-4) NONE 0-5 [facility] CenterUrine YTH5028-61-64 14:12:00* Test Item Value Reference Range Interpretation Comments Urine RBC (test code = 07793-4) NONE 0-5 [facility] CenterUrine Oduasokk4246-96-16 14:12:00* Test Item Value Reference Range Interpretation Comments Urine Bacteria (test code = 51270-4) NONE NONE [facility] CenterUrine Epithelial Pembp3305-76-15 14:12:00 * Test Item Value Reference Range Interpretation Comments Urine Epithelial Cells (test code = 99930-2) MODERATE NONE [facility] CenterCHEST SINGLE (PORTABLE)2019-05-06 14:00:00 [facility] [address] [address] Patient Name: JOHNATHAN GAUTHIER MR #: [id number] : 1985 Age/Sex: 33/F Req #: [id number] Adm Physician: Ordered by: MIRIAM SANDERS CREDIT REVIEW ANALYST Report #: [id number] Location: ER Room/Bed: Procedure: 0221-0 050 DX/CHEST [...] ESCAMILLA MD 00 COPY TO: MIRIAM SANDERS CREDIT REVIEW ANALYST CT BRAIN OO4037-24-10 13:58:00 [address] [place] [address] Patient Name: JOHNATHAN GAUTHIER MR #: [id number] : 1985 Age/Sex: 33/F Req #: [id number] Adm Physician: Ordered by: MIRIAM SANDERS CREDIT REVIEW ANALYST Report #: [id number] Location: ER Room/Bed: Procedure: 0221-[address]/CT [...] Interpretation Comments Acetaminophen Level (test code = 76924-0) < 3.0 10-30 [facility] Hospitalerum or plasma ethanol measurement (mass/volume)2019-05-06 13:50:00* Test Item Value Reference Range Interpretation Comments Ethyl Alcohol Level (test code = 5643-2) < 10.0 0.0-10.0 [facility] Hospitalerum or plasma salicylates measurement (mass/volume)2019-05-06 13:50:00* Test Item Value Reference Range Interpretation Comments Salicylates Level (test code = 4024-6) < 5.0 0-30 [facility] CenterUrine opiates screening wfuf8111-94-32 12:40:00* Test Item Value Reference Range Interpretation Comments Urine Opiates Screen (test code = 06091-0) NEGATIVE NEGATIVE ALL TESTS PERFORMED MANUALLY ON [employer] TOX/SEE TESTSaint [facility]illus Medical CenterBarbiturates screen, vpcvv2277-59-50 12:40:00* Test Item Value Reference Range Interpretation Comments Urine Barbiturates Screen (test code = 668351371) NEGATIVE NEGA TIVE [facility] by screening [id number] 12:40:00* Test Item Value Reference Range Interpretation Comments Urine Phencyclidine Screen (test code = 39287-9) NEGATIVE NEGAT JERROD [facility] amphetamines detection by screen method > 1000 [id number] 12:40:00* Test Item Value Reference Range Interpretation Comments Urine Amphetamines Screen (test code = 82844-1) NEGATIVE NEGATI VE [facility] CenterFluoroscopic procedure less than one hour [id number] 12:40:00* Test Item Value Reference Range Interpretation Comments Urine Methamphetamines Screen (test code = Urine Metha mphetamines Screen) NEGATIVE NEGATIVE [facility] benzodiazepines detection by screening [id number] 12:40:00* Test Item Value Reference Range Interpretation Comments Urine Benzodiazepines Screen (test code = 86748-3) NEGATIVE NEG ATIVE [facility] cocaine measurement (mass/volume) 2019-05-06 12:40:00* Test Item Value Reference Range Interpretation Comments Urine Cocaine Screen (test code = 3398-5) NEGATIVE NEGATIVE [facility] cannabinoids detection by screening [id number] 12:40:00* Test Item Value Reference Range Interpretation Comments Urine Cannabinoids Screen (test code = 44952-5) NEGATIVE NEGATI VE THESE RESULTS ARE FOR MEDICAL TREATMENT ONLYTHIS REPORT CONTAINS UNCONFIR MED SCREENING RESULTS*POSITIVE RESULTS WILL BE CONFIRMED BY REFERENCE LAB UPON R EQUEST CUT-OFFDRUG CLASS CONCENTRATION ng/mLAmphetamines 1000Methamphetamines 1000Cocaine 300Opiate 300Phencyc lidine 25Cannabinoid 50Barbiturates 300Benzodiazepine 300Methadone 300[facility] [id number] 12:40:00* Test Item Value Reference Range Interpretation Comments Urine Methadone Screen (test code = 02289-0) NEGATIVE NEGATIVE THESE RESULTS ARE FOR MEDICAL TREATMENT ONLYTHIS REPORT CONTAINS UNCONFIR MED SCREENING RESULTS*POSITIVE RESULTS WILL BE CONFIRMED BY REFERENCE LAB UPON R EQUEST CUT-OFFDRUG CLASS CONCENTRATION ng/mLAmphetamines 1000Methamphetamines 1000Cocaine Metabolite 300Opiate 300Phencyc lidine 25Cannabinoid 50Barbiturates 300Benzodiazepine 300Methadone 300[facility] human chorionic gonadotropin (hCG) detection 2019-05-06 12:40:00* Test Item Value Reference Range Interpretation Comments Urine Test (test code = 2106-3) NEGATIVE NEGATIVE [facility]- US TRANSVAGINAL NON [id number] 19:31:00 Name: JOHNATHAN GAUTHIER [facility] : 1985 Age/S: 32 / F [address] [facility] Unit #: [id number] Loc: [place], [place] [address] Phys: Jose Gan MD Acct: [id number] Dis Date: Status: REG ER PHONE #: [phone] Exam Date: 07/08/20181928 FAX #: [phone] Reason: pelvic pain EXAMS: CPT CODE: [id number] [place] [address] REASON FOR EXAM: pelvic pain EXAM ORDER [...] Orig Print D/T: S: 07/08/2018 (1933) Probe: [id number] PAGE 1 Signed Report - US PELVIS [id number] 19:31:00 Name: JOHNATHAN GAUTHIER [facility] : 1985 Age/S: 32 / F [address] [facility] Unit #: [id number] Loc: [place] [address] Phys: Jose Gan MD Acct: [id number] Dis Date: Status: REG ER PHONE #: [phone] Exam Date: 07/08/20181928 FAX #: [phone] Reason: pelvic pain EXAMS: CPT CODE: [id number] US PELVIS COMPLETE 81893 REASON FOR EXAM: pelvic pain EXAM ORDER [...] = ALKP) 78 U/L 38-126 N URINALYSIS [id number] 18:19:00* Test Item Value Reference Range Interpretation [...] NONE-FEW A Urine Source? Clean CatchUR HCG [id number] 18:19:00* Test Item Value Reference Range Interpretation Comments UR HCG QUAL (test code = HCGQLU) NEGATIVE This HCGQL test is NOT applicable for MALE patients.Check with nurse about probable order error.If Tumor Marker Test needed, nurse should order test "HCGTU"(Test #550.20274) Urine Source? Clean CatchCOMPREHENSIVE METABOLIC [id number] 18:19:00* Test Item Value Reference Range Interpretation [...] (test code = ALKP) IUnit/L 45-117 URINALYSIS [id number] 18:09:00* Test Item Value Reference Range Interpretation [...] ESTERASE DIPSTICK (test code = LEUU) 25 Lcara/uL (Tra ce) uL NEGATIVE A UA WBC (test code = WBCU) per HPF 0-5 UA RBC (test code = RBCU) per HPF 0-5 UA EPITHELIAL CELLS (test code = EPIU) per HPF Few UA BACTERIA (test code = BACU) per HPF NONE Urine Source? Clean CatchUR HCG [id number] 18:09:00* Test Item Value Reference Range Interpretation Comments UR HCG QUAL (test code = HCGQLU) Urine Source? Clean CatchURINALYSIS [id number] 18:09:00* Test Item Value Reference Range Interpretation [...] HPF NONE Urine Source? Clean CatchUR HCG [id number] 18:09:00* Test Item Value Reference Range Interpretation Comments UR HCG QUAL (test code = HCGQLU) NEGATIVE This HCGQL test is NOT applicable for MALE patients.Check with nurse about probable order error.If Tumor Marker Test needed, nurse should order test "HCGTU"(Test #550.40452) Urine Source? Clean CatchCBC W/AUTO [id number] 18:08:00* Test Item Value Reference Range Interpretation [...] (test code = MDIFF) NO BASIC METABOLIC [id number] 06:57:00* Test Item Value Reference Range Interpretation [...] code = CA) mg/dL 8.5-10.1 HEPATIC FUNCTION [id number] 06:57:00* Test Item Value Reference Range Interpretation [...] TOTAL (test code = ALKP) IUnit/L 45-117 [id number] 06:57:00* Test Item Value Reference Range Interpretation Comments LIPASE (test code = LIP) U/L 73.0-393.0 HCG SERUM [id number] 06:57:00* Test Item Value Reference Range Interpretation Comments HCG SERUM QUAL (test code = HCGQL) NEGATIVE NEGATIVE This HCGQL test is NOT applicable for MALE patients.Check with nurse about probable order error.If Tumor Marker Test needed, nurse should order test "HCGTU"(Test #550.93227) BASIC METABOLIC [id number] 06:57:00* Test Item Value Reference Range Interpretation [...] CA) 9.1 mg/dL 8.5-10.1 N HEPATIC FUNCTION [id number] 06:57:00* Test Item Value Reference Range Interpretation [...] reference range due to change in reagent. [id number] 06:57:00* Test Item Value Reference Range Interpretation Comments LIPASE (test code = LIP) 188 U/L 73.0-393.0 N HCG SERUM [id number] 06:57:00* Test Item Value Reference Range Interpretation Comments HCG SERUM QUAL (test code = HCGQL) NEGATIVE NEGATIVE This HCGQL test is NOT applicable for MALE patients.Check with nurse about probable order error.If Tumor Marker Test needed, nurse should order test "HCGTU"(Test #550.27996) CBC W/O [id number] 06:56:00* Test Item Value Reference Range Interpretation [...] MPV) 10.3 fL 6.7-11.0 N CBC W/O [id number] 06:47:00* Test Item Value Reference Range Interpretation [...] code = MPV) fL 6.7-11.0 BASIC METABOLIC [id number] 06:44:00* Test Item Value Reference Range Interpretation [...] code = CA) mg/dL 8.5-10.1 HEPATIC FUNCTION [id number] 06:44:00* Test Item Value Reference Range Interpretation [...] TOTAL (test code = ALKP) IUnit/L 45-117 [id number] 06:44:00* Test Item Value Reference Range Interpretation Comments LIPASE (test code = LIP) U/L 73.0-393.0 HCG SERUM [id number] 06:44:00* Test Item Value Reference Range Interpretation Comments HCG SERUM QUAL (test code = HCGQL) NEGATIVE U/S, RENAL, [id number] 10:41:00Reason for exam:->URINARY RETENTIONx 5 daysReason for [...] eport Verified Date/Time: 06/05/2018 10:41:20 Reading Location: [facility] C013X [facility] Consult Reading Room ALYSIS W/ REFLEX URINE [id number] 10:38:00* Test Item Value Reference Range Interpretation [...] SOURCE(BEAKER) (test code = 2795) HEPATIC FUNCTION [id number] 10:38:00* Test Item Value Reference Range Interpretation [...] = 347) 31 U/L 6-55 BASIC METABOLIC [id number] 10:38:00* Test Item Value Reference Range Interpretation [...] DIALYSIS PATIENTS. CBC W/PLT COUNT & AUTO [id number] 08:46:00* Test Item Value Reference Range Interpretation [...]
== END 2019-12-08 18:45 | disposition home or self-care (01) ==
LOC: ER 15:13 → ERHOLD 17:47 → MED/SURG3 20:44
PROVIDERS: ADMIT Internal Medicine; ATTEND Internal Medicine
DX: K20.9 Esophagitis, unspecified (principal); G89.29 Other chronic pain; K29.70 Gastritis, unspecified, without bleeding; Z11.59 Encounter for screening for other viral diseases; F41.9 Anxiety disorder, unspecified
CPT/HCPCS: 36415 ×3; 43239; 43245; 70450; 71045; 74177; 76705; 78227; 80053 ×3; 80061; 81001; 82550; 82553; 83690; 83735 ×2; 84443; 84484 ×2; 84702; 85025 ×3; 87086; 88305; 88312; 93005; 96361; 99284; A9537; C1726; C9113; G0378 ×3; J1885 ×3; J2001; J2250; J2405 ×3; J2704; J2765; J3010; J7030 ×3; J8597; Q9967; U0002; 43450